=== PATIENT | male | born 1935 | race Caucasian/White ===

== ENCOUNTER 2016-09-01 05:18 | Day surgery (SDC) | payer MEDICARE, BC ==
[2016-09-01] MEDS ORDERED: Lactated Ringers 1,000 ML IV SCH (06:00)
[2016-09-01] MEDS ORDERED: Bupivacaine 0.5% 50 ML MDV ONE (06:36)
[2016-09-01] MEDS ORDERED: Rocuronium 50 MG/5 ML Vial ONE (07:22)
[2016-09-01] MEDS ORDERED: Dexamethasone 4 MG/ML SDV ONE (07:22)
[2016-09-01] MEDS ORDERED: Ondansetron 4 MG/2 ML SDV ONE (07:22)
[2016-09-01] MEDS ORDERED: Succinylcholine/Normal Saline 200 MG/10 ML Syringe ONE (07:22)
[2016-09-01] MEDS ORDERED: fentaNYL 250 MCG/5 ML SDV ONE (07:22)
[2016-09-01] MEDS ORDERED: Propofol 200 MG/20 ML SDV ONE (07:22)
[2016-09-01] MEDS ORDERED: Neostigmine Methylsulfate 1 MG/ML 5 ML Syringe ONE (07:22)
[2016-09-01] MEDS ORDERED: ceFAZolin 2 GM in Sodium Chloride 0.9% 50 ML IV ONE (07:30)
[2016-09-01] MEDS ORDERED: Povidone-Iodine 10% Soln 118.25 ML Bottle ONE (08:07)
[2016-09-01] MEDS ORDERED: fentaNYL 100 MCG/2 ML SDV ONE (08:16)
[2016-09-01] MEDS ORDERED: Ketorolac 60 MG/2 ML SDV IM ONE (08:45)
[2016-09-01 09:51] VITALS: BP 127/58
--- NOTE | 2016-09-01 13:04 | OR ---
DATE OF PROCEDURE: 09/01/2016 PREOPERATIVE DIAGNOSIS: Foreign body, right knee. POSTOPERATIVE DIAGNOSIS: Foreign body, right knee. PROCEDURE: Removal of foreign body from posterior knee, going through skin and subcutaneous tissue, deep fascia, and muscle. SKIN WASHER: Luz Maria Plata NP. ANESTHESIA: General endotracheal intubation. FLUID: Lactated Ringer solution. ESTIMATED BLOOD LOSS: Zero. COMPLICATIONS: None. SPECIMEN: None. DISCHARGE DISPOSITION: Stable to PACU. INDICATION FOR PROCEDURE: The patient was seen preoperatively in the clinic. 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 He was continuing to have pain ever since the surgery. On preoperative imaging, I noticed a foreign body in the back of the knee. CT was obtained confirming the above-mentioned diagnosis. It was thought to be cemented left over from the total knee arthroplasty. Risks and benefits of the procedure were explained to the patient and informed consent was obtained. DETAILS OF PROCEDURE: The patient was seen preoperatively by myself, and the Anesthesia staff in the preop holding area, where the operative site was marked. He was brought to the operative suite by the Anesthesia staff, where general anesthesia was administered. He was flipped onto a Ricky table. All extremities were found to be well padded. The posterior aspect of the right knee was then prepped and draped in a sterile manner. Time-out was called to identify the correct patient, the correct procedure, the correct site, and antibiotics had begun within the appropriate period of time. AP and lateral fluoroscopy from a sterile fluoroscopy unit were then used to localize the foreign body. It could not be ascertained, other than the localized generally, on the area on the AP. But on the lateral image, I was able to ascertain the location of the most superficial cement. I then made an incision over this area, approximately 4 cm long. Bleeding was controlled with Bovie electrocautery. I then carefully incised through the deep fascia over the muscle belly and then used Weitlaner retractors for retraction. I then carefully used a Metzenbaum to dissect down to the area of the foreign bodies, which were palpated. I did encounter some knee synovial fluid at that time. We then removed 3 balls of cement. I was expecting [address] We then copiously irrigated with saline. I then closed the deep fascia in an interlocking fashion with 2-0 Vicryl followed by subcutaneous closure with 2-0 Vicryl and 2-0 Monocryl, Dermabond, a Betadine-soaked Adaptic, and a sterile dressing. The patient was then flipped into supine position on his hospital bed and taken to PACU in stable condition. Jesus Alberto Stout DO /[id number]
== END 2016-09-01 10:22 | disposition home or self-care (01) ==
LOC: JP.SDS 05:18
PROVIDERS: ATTEND Orthopaedic Surgery
PROC: 0KCS0ZZ Extirpation of Matter from Right Lower Leg Muscle, Open Approach (ICD-10-PCS; principal; 2016-09-01)
DX: T81.590A Other complications of foreign body accidentally left in body following surgical operation, initial encounter (principal); T83.728A Exposure of other implanted mesh into organ or tissue, initial encounter; Z96.651 Presence of right artificial knee joint; Z79.82 Long term (current) use of aspirin; Z79.899 Other long term (current) drug therapy; E11.9 Type 2 diabetes mellitus without complications; Z79.84 Long term (current) use of oral hypoglycemic drugs; J45.909 Unspecified asthma, uncomplicated
CPT/HCPCS: 27310; 76000; J0690; J1100; J1885; J2405; J2704; J3010; J7050; J7120; 27372; 88304; 88311

== ENCOUNTER 2017-06-19 10:46 | Emergency (ER) | payer MEDICARE, BC ==
[2017-06-19] MEDS ORDERED: Sodium Chloride 0.9% 10 ML Syringe FLUSH PRN (11:09)
[2017-06-19] MEDS ORDERED: Ondansetron 4 MG/2 ML SDV IVPUSH ONE (11:10)
[2017-06-19] MEDS ORDERED: Ketorolac 30 MG/ML SDV IVPUSH ONE (11:10)
[2017-06-19] MEDS ORDERED: Lactated Ringers 1,000 ML IV SCH (11:15)
--- NOTE | 2017-06-19 11:15 | EDM.PDOC ---
ED HPI GENERAL MEDICAL PROBLEM - General Chief Complaint: Syncope Stated Complaint: ILLNESS Time Seen by Provider: 06/19/17 11:08 Source of Information: Reports: Patient, Family, RN Notes Reviewed History Limitations: Reports: No Limitations - History of Present Illness INITIAL COMMENTS - FREE TEXT/NARRATIVE: 82-year-old gentleman presents to the emergency department today for a syncopal event, this happened while he was at [employer], he was recently started on metoprolol took his second dose today. He also complains of migraine headache that has been going on for about 4 days. He believes he injured his right ankle with his syncopal event and now has pain with any rotation. No nausea vomiting no chest pain or shortness of breath however he does have photophobia - Related Data Allergies Allergy/AdvReac Type Severity Reaction Status Date / Time codeine AdvReac Nausea and Verified 08/28/16 14:46 Vomiting morphine AdvReac Headache Verified 08/28/16 14:46 foam tape AdvReac Blisters Uncoded 02/18/17 11:06 Home Meds: Home Meds Aspirin [Low Dose Aspirin EC] 81 mg PO DAILY 11/14/13 [History] Calcium Carb/Vit D3/Minerals [Hm Calcium 600 mg-Vit D Tab] 1 tab PO BID [History] Cholecalciferol (Vitamin D3) [D-2000] 1,000 unit PO DAILY 11/14/13 [History] ClonazePAM [KlonoPIN] 0.5 mg PO BEDTIME 11/14/13 [History] Cyanocobalamin (Vitamin B-12) [Vitamin B-12] 1,000 mcg PO DAILY 11/14/13 [ History] Diphenoxylate HCl/Atropine [Diphenoxylate-Atrop 2.5-0.025] 1 each PO ASDIRECTED PRN 11/14/13 [History] Multivitamin [Multi Vitamin Daily] 1 tab PO DAILY 11/14/13 [History] Gay-3 Fatty Acids [Gay-3] 1,000 mg PO BID 11/14/13 [History] Pantoprazole Sodium 80 mg PO DAILY 11/14/13 [History] SUMAtriptan Succinate [Imitrex] 50 mg PO ASDIRECTED PRN 11/14/13 [History] atorvaSTATin [Lipitor] 40 mg PO BEDTIME 11/14/13 [History] Albuterol Sulfate [Proair Hfa] 2 puff INH Q6H PRN 01/14/16 [History] Finasteride [Proscar] 5 mg PO DAILY 01/14/16 [History] Furosemide [Lasix] 60 mg PO DAILY 01/14/16 [History] Nitroglycerin 0.4 mg SL ASDIRECTED PRN 01/14/16 [History] Pregabalin [Lyrica] 50 mg PO TID 01/14/16 [History] metFORMIN [Glucophage] 500 mg PO DAILY 01/14/16 [History] rOPINIRole [Requip] 0.5 mg PO QPM 01/14/16 [History] Ferrous Gluconate 324 mg PO DAILY 08/28/16 [History] Lidocaine 2% [Xylocaine 2% Jelly] 1 applic TOP ASDIRECTED 08/28/16 [History] Apixaban [Eliquis] 1 tab PO DAILY 06/19/17 [History] Diltiazem [Dilacor XR] 1 tab PO DAILY 06/19/17 [History] Isosorbide Mononitrate [Isosorbide Mononitrate ER] 1 tab PO DAILY 06/19/17 [ History] Metoprolol Tartrate 1 tab PO BID 06/19/17 [History] Past Medical History Cardiovascular History: Reports: High Cholesterol, SOB on Exertion Respiratory History: Reports: Asthma, COPD Gastrointestinal History: Reports: GERD, Hemorrhoids Genitourinary History: Reports: Prostate Disorder Musculoskeletal History: Reports: Arthritis, Back Pain, Chronic, Fracture, Neck Pain, Chronic, Osteoarthritis, Other (See Below) Other Musculoskeletal History: L hip pain Neurological History: Reports: Migraines, Neuropathy, Diabetic Endocrine/Metabolic History: Reports: Diabetes, Type II, Obesity/BMI 30+, Vitamin D Deficiency Hematologic History: Reports: Blood Transfusion(s), Iron Deficiency Dermatologic History: Reports: None - Infectious Disease History Infectious Disease History: Reports: Chicken Pox, Herpes, Measles - Past Surgical History HEENT Surgical History: Reports: Oral Surgery, Tonsillectomy Cardiovascular Surgical History: Reports: None Respiratory Surgical History: Reports: None GI Surgical History: Reports: Appendectomy, Cholecystectomy, Colonoscopy, EGD, Hernia, Abdominal, Hernia, Inguinal, Hernia Repair/Other Male Surgical History: Reports: Prostate Biopsy, Prostatectomy, Vasectomy Endocrine Surgical History: Reports: None Neurological Surgical History: Reports: C-Spine, Spinal Fusion, Thoracic Spine, Other (See Below) Other Neurological Surgeries/Procedures: T11 to S1 Musculoskeletal Surgical History: Reports: Arthroscopic Procedure, Carpal Tunnel , Knee Replacement, Shoulder Surgery Dermatological Surgical History: Reports: Skin Biopsy Social & Family History - Family History Cardiac: Reports: Heart Failure - Tobacco Use Smoking Status *Q: Never Smoker Years of Tobacco use: 40 Used Tobacco, but Quit: Yes Month/Year Tobacco Last Used: 1993 Second Hand Smoke Exposure: No - Caffeine Use Caffeine Use: Reports: Coffee Other Caffeine Use: 1x/wk - Recreational Drug Use Recreational Drug Use: No ED ROS GENERAL - Review of Systems Review Of Systems: See Below Constitutional: Reports: No Symptoms HEENT: Reports: No Symptoms Respiratory: Reports: No Symptoms Cardiovascular: Reports: Lightheadedness, Syncope GI/Abdominal: Reports: No Symptoms : Reports: No Symptoms Musculoskeletal: Reports: No Symptoms Skin: Reports: No Symptoms Neurological: Reports: Syncope ED EXAM, GENERAL - Physical Exam Exam: See Below Exam Limited By: No Limitations General Appearance: Alert, No Apparent Distress Neck: Normal Inspection, Supple, Non-Tender, Full Range of Motion Respiratory/Chest: No Respiratory Distress, Lungs Clear, Normal Breath Sounds, No Accessory Muscle Use Cardiovascular: No Murmur, Bradycardia GI/Abdominal: Soft, Non-Tender Extremities: Pedal Edema, Other (Examination of the ankle right I do not appreciate any erythema edema is +1 in the lower extremity no obvious deformity he is tender to palpation on lateral aspect and tender to rotation) Course - Vital Signs Last Recorded V/S: Last Vital Signs Temp 98.6 F 06/19/17 12:08 Pulse 36 L 06/19/17 12:43 Resp 12 06/19/17 12:43 BP 87/47 L 06/19/17 12:43 Pulse Ox 93 L 06/19/17 12:43 - Orders/Labs/Meds Orders: Active Orders 24 hr Category Date Time Status Cardiac Monitoring [RC] .As Directed Care 06/19/17 11:09 Active EKG Documentation Completion [RC] ASDIRECTED Care 06/19/17 11:10 Active Peripheral IV Care [RC] . DIRECTED Care 06/19/17 11:10 Active Ankle Min 3V Rt [CR] Stat Exams 06/19/17 11:11 Taken Chest 1V Frontal [CR] Stat Exams 06/19/17 11:10 Taken Lactated Ringers [Ringers, Lactated] 1,000 ml Med 06/19/17 11:15 Active IV .BOLUS Sodium Chloride 0.9% [Saline Flush] Med 06/19/17 11:09 Active 10 ml FLUSH ASDIRECTED PRN Peripheral IV Insertion Adult [OM.PC] Stat Oth 06/19/17 11:09 Ordered EKG 12 Lead [EK] Stat Ther 06/19/17 11:10 Ordered Medication Orders Lactated Ringer's (Ringers, Lactated) 1,000 mls @ 500 mls/hr IV .BOLUS [place] Last Admin: 06/19/17 11:58 Dose: 500 mls/hr Sodium Chloride (Saline Flush) 10 ml FLUSH ASDIRECTED PRN PRN Reason: Keep Vein Open Last Admin: 06/19/17 11:59 Dose: 10 ml Labs: Laboratory Tests 06/19/17 06/19/17 Range/Units 11:15 12:10 WBC 8.8 (4.5-11.0) K/uL RBC 3.64 L (4.30-5.90) M/uL Hgb 11.6 L D (12.0-15.0) g/dL Hct 35.4 L (40.0-54.0) % MCV 97 (80-98) fL MCH 32 H (27-31) pg MCHC 33 (32-36) % Plt Count 196 (150-400) K/uL Neut % (Auto) 45 (36-66) % Lymph % (Auto) 38 (24-44) % [place] % (Auto) 12 H (2-6) % Eos % (Auto) 4 (2-4) % Baso % (Auto) 1 (0-1) % Sodium 141 (140-148) mmol/L Potassium 3.4 L (3.6-5.2) mmol/L Chloride 102 (100-108) mmol/L Carbon Dioxide 30 (21-32) mmol/L Anion Gap 12.4 (5.0-14.0) mmol/L BUN 33 H (7-18) mg/dL Creatinine 1.7 H (0.8-1.3) mg/dL Est Cr Clr Drug Dosing 32.97 mL/min Estimated GFR (MDRD) 39 L (>60) Glucose 155 H (74-106) mg/dL Calcium 8.9 (8.5-10.1) mg/dL Total Bilirubin 0.4 D (0.2-1.0) mg/dL AST 36 (15-37) U/L ALT 38 (12-78) U/L Alkaline Phosphatase 72 (46-116) U/L CK-MB (CK-2) 2.9 (0-3.6) mg/mL Troponin I < 0.017 (0.000-0.056) ng/mL Total Protein 6.4 (6.4-8.2) g/dL Albumin 3.0 L (3.4-5.0) g/dL Globulin 3.4 (2.3-3.5) g/dL Albumin/Globulin Ratio 0.9 L (1.2-2.2) Meds: Medications Generic Name Dose Route Start Last Admin Trade Name Freq PRN Reason Stop Dose Admin Lactated Ringer's 1,000 mls @ 500 mls/hr 06/19/17 11:15 06/19/17 11:58 Ringers, Lactated IV 500 mls/hr .BOLUS [place] Administration Sodium Chloride 10 ml 06/19/17 11:09 06/19/17 11:59 Saline Flush FLUSH 10 ml ASDIRECTED PRN Administration Keep Vein Open Discontinued Medications Generic Name Dose Route Start Last Admin Trade Name Freq PRN Reason Stop Dose Admin Diphenhydramine HCl 25 mg 06/19/17 12:44 Benadryl IVPUSH 06/19/17 12:45 ONETIME ONE Haloperidol Lactate 2.5 mg 06/19/17 12:44 Haldol IVPUSH 06/19/17 12:45 ONETIME ONE Ketorolac Tromethamine 30 mg 06/19/17 11:10 06/19/17 12:00 Toradol IVPUSH 06/19/17 11:11 30 mg ONETIME ONE Administration Ondansetron HCl 4 mg 06/19/17 11:10 06/19/17 11:59 Zofran IVPUSH 06/19/17 11:11 4 mg ONETIME ONE Administration Departure - Departure Time of Disposition: 12:51 Disposition: Admitted As Inpatient 67 Condition: Fair Clinical Impression: Bradycardia Referrals: Adam Alfonso MD [Primary Care Provider] - Forms: ED Department Discharge - My Orders Last 24 Hours: My Active Orders 06/19/17 11:09 Cardiac Monitoring [RC] .As Directed Sodium Chloride 0.9% [Saline Flush] 10 ml FLUSH ASDIRECTED PRN Peripheral IV Insertion Adult [OM.PC] Stat 06/19/17 11:10 EKG Documentation Completion [RC] ASDIRECTED Peripheral IV Care [RC] . DIRECTED Chest 1V Frontal [CR] Stat EKG 12 Lead [EK] Stat 06/19/17 11:11 Ankle Min 3V Rt [CR] Stat 06/19/17 11:15 Lactated Ringers [Ringers, Lactated] 1,000 ml IV .BOLUS - Assessment/Plan Last 24 Hours: My Active Orders 06/19/17 11:09 Cardiac Monitoring [RC] .As Directed Sodium Chloride 0.9% [Saline Flush] 10 ml FLUSH ASDIRECTED PRN Peripheral IV Insertion Adult [OM.PC] Stat 06/19/17 11:10 EKG Documentation Completion [RC] ASDIRECTED Peripheral IV Care [RC] . DIRECTED Chest 1V Frontal [CR] Stat EKG 12 Lead [EK] Stat 06/19/17 11:11 Ankle Min 3V Rt [CR] Stat 06/19/17 11:15 Lactated Ringers [Ringers, Lactated] 1,000 ml IV .BOLUS Plan: Assessment Acuity = acute Site and laterality = syncopal event Etiology = secondary to bradycardia and hypotension Manifestations = lightheadedness Location of injury = Home Lab values = hemoglobin low 11.6 consistent with normochromic anemia potassium low at 3.4 consistent hypokalemia anemia, creatinine elevated 1.7 consistent with chronic renal failure stage G IIIB troponin was negative albumin low at 2.0 consistent hypoalbuminemia chest x-ray I did not appreciate any acute process Read radiology EKG demonstrates a sinus bradycardia with a right bundle branch block that is not new was on prior EKG Plan Called and discussed the case with hospitalist teletypesetter monitor he agreed to come and evaluate the patient emergency department for admission This note was dictated using [employer] voice recognition software please call with any questions on syntax or hina.
[2017-06-19] MEDS ORDERED: diphenhydrAMINE 50 MG/ML SDV IVPUSH ONE (12:44)
[2017-06-19] MEDS ORDERED: Haloperidol Lactate 5 MG/ML SDV IVPUSH ONE (12:44)
[2017-06-19] MEDS ORDERED: Lactated Ringers 1,000 ML IV ONE (12:51)
[2017-06-19 13:00] VITALS: BP 87/47
--- NOTE | 2017-06-19 13:59 | PCM.HP ---
H&P History of Present Illness - General Date of Service: 06/19/17 Admit Problem/Dx: Admission Diagnosis/Problem Admission Diagnosis/Problem Bradycardia Source of Information: Patient, Family, Provider, RN Notes Reviewed History Limitations: Reports: No Limitations - History of Present Illness Initial Comments - Free Text/Narative: This patient is an 82-year-old gentleman who is admitted through the emergency department observation status for further monitoring and follow-up of symptomatic bradycardia. He was at druze this morning and feeling somewhat weak and lightheaded. He was started on beta mirlande therapy, took the first dose last night, and the second dose this morning. He experienced a syncopal episode and awoke on the floor. Was brought in by EMS to the emergency department. While in the emergency room is been noted to have persistent bradycardia with rates into the 30s and low 40s. Pressures also been trending low, he has received IV fluids. He denies any symptoms of chest pain or pressure or significant shortness of breath. - Related Data Allergies/Adverse Reactions: Allergies Allergy/AdvReac Type Severity Reaction Status Date / Time codeine AdvReac Nausea and Verified 08/28/16 14:46 Vomiting morphine AdvReac Headache Verified 08/28/16 14:46 foam tape AdvReac Blisters Uncoded 02/18/17 11:06 Home Medications: Home Meds Aspirin [Low Dose Aspirin EC] 81 mg PO DAILY 11/14/13 [History] Calcium Carb/Vit D3/Minerals [Hm Calcium 600 mg-Vit D Tab] 1 tab PO BID [History] Cholecalciferol (Vitamin D3) [D-2000] 1,000 unit PO DAILY 11/14/13 [History] ClonazePAM [KlonoPIN] 0.5 mg PO BEDTIME 11/14/13 [History] Cyanocobalamin (Vitamin B-12) [Vitamin B-12] 1,000 mcg PO DAILY 11/14/13 [ History] Diphenoxylate HCl/Atropine [Diphenoxylate-Atrop 2.5-0.025] 1 each PO ASDIRECTED PRN 11/14/13 [History] Multivitamin [Multi Vitamin Daily] 1 tab PO DAILY 11/14/13 [History] [place]-3 Fatty Acids [[place]-3] 1,000 mg PO BID 11/14/13 [History] Pantoprazole Sodium 80 mg PO DAILY 11/14/13 [History] SUMAtriptan Succinate [Imitrex] 50 mg PO ASDIRECTED PRN 11/14/13 [History] atorvaSTATin [Lipitor] 40 mg PO BEDTIME 11/14/13 [History] Albuterol Sulfate [Proair Hfa] 2 puff INH Q6H PRN 01/14/16 [History] Finasteride [Proscar] 5 mg PO DAILY 01/14/16 [History] Furosemide [Lasix] 60 mg PO DAILY 01/14/16 [History] Nitroglycerin 0.4 mg SL ASDIRECTED PRN 01/14/16 [History] Pregabalin [Lyrica] 50 mg PO TID 01/14/16 [History] metFORMIN [Glucophage] 500 mg PO DAILY 01/14/16 [History] rOPINIRole [Requip] 0.5 mg PO QPM 01/14/16 [History] Ferrous Gluconate 324 mg PO DAILY 08/28/16 [History] Lidocaine 2% [Xylocaine 2% Jelly] 1 applic TOP ASDIRECTED 08/28/16 [History] Apixaban [Eliquis] 1 tab PO DAILY 06/19/17 [History] Diltiazem [Dilacor XR] 1 tab PO DAILY 06/19/17 [History] Isosorbide Mononitrate [Isosorbide Mononitrate ER] 1 tab PO DAILY 06/19/17 [ History] Metoprolol Tartrate 1 tab PO BID 06/19/17 [History] Past Medical History Cardiovascular History: Reports: High Cholesterol, SOB on Exertion Respiratory History: Reports: Asthma, COPD Gastrointestinal History: Reports: GERD, Hemorrhoids Genitourinary History: Reports: Prostate Disorder Musculoskeletal History: Reports: Arthritis, Back Pain, Chronic, Fracture, Neck Pain, Chronic, Osteoarthritis, Other (See Below) Other Musculoskeletal History: L hip pain Neurological History: Reports: Migraines, Neuropathy, Diabetic Endocrine/Metabolic History: Reports: Diabetes, Type II, Obesity/BMI 30+, Vitamin D Deficiency Hematologic History: Reports: Blood Transfusion(s), Iron Deficiency Dermatologic History: Reports: None - Infectious Disease History Infectious Disease History: Reports: Chicken Pox, Herpes, Measles - Past Surgical History HEENT Surgical History: Reports: Oral Surgery, Tonsillectomy Cardiovascular Surgical History: Reports: None Respiratory Surgical History: Reports: None GI Surgical History: Reports: Appendectomy, Cholecystectomy, Colonoscopy, EGD, Hernia, Abdominal, Hernia, Inguinal, Hernia Repair/Other Male Surgical History: Reports: Prostate Biopsy, Prostatectomy, Vasectomy Endocrine Surgical History: Reports: None Neurological Surgical History: Reports: C-Spine, Spinal Fusion, Thoracic Spine, Other (See Below) Other Neurological Surgeries/Procedures: T11 to S1 Musculoskeletal Surgical History: Reports: Arthroscopic Procedure, Carpal Tunnel , Knee Replacement, Shoulder Surgery Dermatological Surgical History: Reports: Skin Biopsy Social & Family History - Family History Cardiac: Reports: Heart Failure - Tobacco Use Smoking Status *Q: Never Smoker Years of Tobacco use: 40 Used Tobacco, but Quit: Yes Month/Year Tobacco Last Used: 1993 Second Hand Smoke Exposure: No - Caffeine Use Caffeine Use: Reports: Coffee Other Caffeine Use: 1x/wk - Recreational Drug Use Recreational Drug Use: No H&P Review of Systems - Review of Systems: Review Of Systems: See Below General: Denies: Fever, Chills, Weakness, Diaphoresis HEENT: Reports: No Symptoms Pulmonary: Reports: No Symptoms Cardiovascular: Reports: Lightheadedness, Syncope. Denies: Chest Pain, Palpitations, Dyspnea on Exertion, Orthopnea, PND, Edema Gastrointestinal: Reports: No Symptoms Genitourinary: Reports: No Symptoms Musculoskeletal: Reports: No Symptoms Skin: Reports: No Symptoms Psychiatric: Reports: No Symptoms Neurological: Reports: Headache, Paresthesia. Denies: Confusion, Dizziness, Numbness, Pre-Existing Deficit Hematologic/Lymphatic: Reports: No Symptoms Immunologic: Reports: No Symptoms Exam - Exam Exam: See Below - Vital Signs Vital Signs: Last Vital Signs Temp 98.6 F 06/19/17 12:08 Pulse 36 L 06/19/17 12:43 Resp 12 06/19/17 12:43 BP 87/47 L 06/19/17 12:43 Pulse Ox 93 L 06/19/17 12:43 Weight: 220 lb - Exam Quality Assessment: DVT Prophylaxis General: Alert, Oriented, Cooperative, Moderate Distress HEENT: Conjunctiva Clear, Normal Nasal Septum, Posterior Pharynx Clear, Pupils Equal. No: Hearing Intact, Mucosa Moist & [place]: Supple, Trachea Midline, +2 Carotid Pulse wo Bruit Lungs: Clear to Auscultation, Normal Respiratory Effort Cardiovascular: Regular Rhythm, Normal S1, Normal S2, Bradycardia. No: Systolic Murmur, Diastolic Murmur GI/Abdominal Exam: Soft, Non-Tender, No Organomegaly, No Distention Extremities: Non-Tender, No Pedal Edema Skin: Warm, Dry, Intact Neurological: Cranial Nerves Intact, Strength Equal Bilateral, Normal Speech, Normal Tone. No: Sensation Intact (Neuropathy with decreased sensation both lower extremities) Neuro Extensive - Mental Status: Alert, Oriented x3, Normal Mood/Affect, Normal Cognition, Memory Intact - Patient Data Lab Results Last 24 hrs: Laboratory Results - last 24 hr 06/19/17 06/19/17 Range/Units 11:15 12:10 WBC 8.8 (4.5-11.0) K/uL RBC 3.64 L (4.30-5.90) M/uL Hgb 11.6 L D (12.0-15.0) g/dL Hct 35.4 L (40.0-54.0) % MCV 97 (80-98) fL MCH 32 H (27-31) pg MCHC 33 (32-36) % Plt Count 196 (150-400) K/uL Neut % (Auto) 45 (36-66) % Lymph % (Auto) 38 (24-44) % [place] % (Auto) 12 H (2-6) % Eos % (Auto) 4 (2-4) % Baso % (Auto) 1 (0-1) % Sodium 141 (140-148) mmol/L Potassium 3.4 L (3.6-5.2) mmol/L Chloride 102 (100-108) mmol/L Carbon Dioxide 30 (21-32) mmol/L Anion Gap 12.4 (5.0-14.0) mmol/L BUN 33 H (7-18) mg/dL Creatinine 1.7 H (0.8-1.3) mg/dL Est Cr Clr Drug Dosing 32.97 mL/min Estimated GFR (MDRD) 39 L (>60) Glucose 155 H (74-106) mg/dL Calcium 8.9 (8.5-10.1) mg/dL Total Bilirubin 0.4 D (0.2-1.0) mg/dL AST 36 (15-37) U/L ALT 38 (12-78) U/L Alkaline Phosphatase 72 (46-116) U/L CK-MB (CK-2) 2.9 (0-3.6) mg/mL Troponin I < 0.017 (0.000-0.056) ng/mL Total Protein 6.4 (6.4-8.2) g/dL Albumin 3.0 L (3.4-5.0) g/dL Globulin 3.4 (2.3-3.5) g/dL Albumin/Globulin Ratio 0.9 L (1.2-2.2) Result Diagrams: 06/19/17 11:15 06/19/17 12:10 *Q Meaningful Use (ADM) - VTE *Q VTE Pharmacological Contraindications *Q: High INR Value - VTE Risk Assess *Q Each Risk Factor Represents 1 Point: None, Obesity ( BMI > 25 kg/m2) Total Score 1 Point Risk Factors: 1 Each Risk Factor Represents 2 Points: None Total Score 2 Point Risk Factors: 0 Each Risk Factor Represents 3 Points: Age 75 Years or Greater Total Score 3 Point Risk Factors: 3 Each Risk Factor Represents 5 Points: None Total Score 5 Point Risk Factors: 0 Venous Thromboembolism Risk Factor Score *Q: 4 Problem List Initiated/Reviewed/Updated: Yes Orders Last 24hrs: Active Orders 24 hr Category Date Time Status Patient Status Manage Transfer [TRANSFER] Routine ADT 06/19/17 13:09 Active Cardiac Monitoring [RC] .As Directed Care 06/19/17 11:09 Active EKG Documentation Completion [RC] ASDIRECTED Care 06/19/17 11:10 Active Peripheral IV Care [RC] . DIRECTED Care 06/19/17 11:10 Active Ankle Min 3V Rt [CR] Stat Exams 06/19/17 11:11 Taken Chest 1V Frontal [CR] Stat Exams 06/19/17 11:10 Taken Lactated Ringers [Ringers, Lactated] 1,000 ml Med 06/19/17 11:15 Active IV .BOLUS Lactated Ringers [Ringers, Lactated] 1,000 ml Med 06/19/17 12:51 Active IV BOLUS Sodium Chloride 0.9% [Saline Flush] Med 06/19/17 11:09 Active 10 ml FLUSH ASDIRECTED PRN Peripheral IV Insertion Adult [OM.PC] Stat Oth 06/19/17 11:09 Ordered Resuscitation Status Routine Resus Stat 06/19/17 13:12 Ordered EKG 12 Lead [EK] Stat Ther 06/19/17 11:10 Ordered Medication Orders Lactated Ringer's (Ringers, Lactated) 1,000 mls @ 500 mls/hr IV .BOLUS [place] Last Admin: 06/19/17 11:58 Dose: 500 mls/hr Lactated Ringer's (Ringers, Lactated) 1,000 mls @ 250 mls/hr IV BOLUS ONE Stop: 06/19/17 16:50 Last Admin: 06/19/17 13:46 Dose: 250 mls/hr Sodium Chloride (Saline Flush) 10 ml FLUSH ASDIRECTED PRN PRN Reason: Keep Vein Open Last Admin: 06/19/17 11:59 Dose: 10 ml Assessment/Plan Comment:: ASSESSMENT AND PLAN SYMPTOMATIC BRADYCARDIA-profound bradycardia likely secondary to recent addition of beta mirlande therapy to current medical regimen, he also takes a calcium channel mirlande diltiazem. Episode of syncope this morning occurred after he taken the second dose of beta mirlande, on evaluation in the emergency department EKG shows very slow sinus bradycardia. -Hold metoprolol and diltiazem -cardiac monitoring in ICU -observation admission RIGHT ANKLE PAIN-injured his ankle when he fell, x-rays obtained in the emergency department showed no evidence of fracture -Andrew wrap ankle TYPE 2 DIABETES MELLITUS -continue metformin line- -4 times a day glucometers -Low-dose sliding scale NovoLog MAINTENANCE ISSUES -DVT prophylaxis; current therapy with Fer was should provide adequate DVT prophylaxis -GI prophylaxis; not indicated -[place] catheter; not indicated -Nutrition;Consistent carb diet -Nicotine dependence; not required CODE STATUS- FULL CODE ADMISSION STATUS-this patient will be admitted to observation status, expect no more than a one night hospital stay for evaluation and management of problems as outlined above. DISPOSITION-anticipate discharge to home after the hospital stay. PRIMARY CARE PROVIDER-Dr. Alfonso
--- NOTE | 2017-06-21 08:54 | CR ---
Ankle Min 3V Rt INDICATION: fall, pain FINDINGS: No acute fracture. Enthesophyte distal fibula. Well-corticated ossicles inferior to the med ial malleolus. Degenerative changes in the midfoot.
--- NOTE | 2017-06-21 09:23 | CR ---
Chest 1V Frontal INDICATION: Chest Pain FINDINGS: Heart size within normal limits allowing for portable AP technique. Postoperative changes c ervical spine. Mild diffuse interstitial changes are nonspecific and could be acute or chronic. Mild bibasilar infiltrate or atelectasis. Exam otherwise negative.
== END 2017-06-19 15:08 | disposition left against medical advice (07) ==
LOC: JP.ED 10:46 → JP.ICU 13:09 → UNDOADMOB 13:09
DX: R00.1 Bradycardia, unspecified (principal); E78.00 Pure hypercholesterolemia, unspecified; J44.9 Chronic obstructive pulmonary disease, unspecified; E11.9 Type 2 diabetes mellitus without complications; E66.9 Obesity, unspecified; Z88.5 Allergy status to narcotic agent; Z88.8 Allergy status to other drugs, medicaments and biological substances; Z79.82 Long term (current) use of aspirin; Z79.899 Other long term (current) drug therapy; Z79.84 Long term (current) use of oral hypoglycemic drugs; Z90.49 Acquired absence of other specified parts of digestive tract; Z68.33 Body mass index [BMI] 33.0-33.9, adult
CPT/HCPCS: 36415; 71045; 73610; 80053; 82553; 84484; 85025; 93005; 96361; 96374; 96375; 99285; J1200; J1630; J1885; J2405; J7050; J7120

== ENCOUNTER 2017-06-25 20:38 | Inpatient (IN) | payer MEDICARE, BC ==
[2017-06-25] MEDS ORDERED: Pregabalin 50 MG Cap PO ONE (21:42)
--- NOTE | 2017-06-25 21:42 | EDM.PDOC ---
ED HPI GENERAL MEDICAL PROBLEM - General Chief Complaint: Lower Extremity Injury/Pain Stated Complaint: LEG IS RED SWOLLEN Time Seen by Provider: 06/25/17 21:15 Source of Information: Reports: Patient, Family History Limitations: Reports: No Limitations - History of Present Illness INITIAL COMMENTS - FREE TEXT/NARRATIVE: 82-year-old male who is concerned about swelling, discomfort, and redness of his right lower extremity for the past 1-2 days. He recently had a significant right ankle sprain that cause swelling and bruising but that was improving but over the past 2 days he's had swelling all the way to his groin on the right side, the skin is getting tense and erythematous. He's had no fever. He is on Eloquis for anticoagulation. Denies any shortness of breath. Onset: Gradual (Over the past 1-2 days) Location: Reports: Lower Extremity, Right Severity: Moderate Associated Symptoms: Denies: Confusion, Cough, Fever/Chills, Nausea/Vomiting, Shortness of Breath Right Leg Pain Score (Numeric/FACES): 8 - Related Data Allergies Allergy/AdvReac Type Severity Reaction Status Date / Time codeine AdvReac Nausea and Verified 06/25/17 20:43 Vomiting morphine AdvReac Headache Verified 06/25/17 20:43 foam tape AdvReac Blisters Uncoded 06/25/17 20:43 Home Meds: Home Meds Aspirin [Low Dose Aspirin EC] 81 mg PO DAILY 11/14/13 [History] Calcium Carb/Vit D3/Minerals [Hm Calcium 600 mg-Vit D Tab] 1 tab PO BID [History] Cholecalciferol (Vitamin D3) [D-2000] 2,000 unit PO DAILY 11/14/13 [History] ClonazePAM [KlonoPIN] 0.5 mg PO BEDTIME 11/14/13 [History] Cyanocobalamin (Vitamin B-12) [Vitamin B-12] 1,000 mcg PO DAILY 11/14/13 [ History] Diphenoxylate HCl/Atropine [Diphenoxylate-Atrop 2.5-0.025] 1 each PO ASDIRECTED PRN 11/14/13 [History] Multivitamin [Multi Vitamin Daily] 1 tab PO DAILY 11/14/13 [History] [place]-3 Fatty Acids [[place]-3] 1,000 mg PO BID 11/14/13 [History] Pantoprazole Sodium 80 mg PO DAILY 11/14/13 [History] SUMAtriptan Succinate [Imitrex] 50 mg PO ASDIRECTED PRN 11/14/13 [History] atorvaSTATin [Lipitor] 40 mg PO BEDTIME 11/14/13 [History] Albuterol Sulfate [Proair Hfa] 2 puff INH Q6H PRN 01/14/16 [History] Finasteride [Proscar] 5 mg PO DAILY 01/14/16 [History] Furosemide [Lasix] 60 mg PO DAILY 01/14/16 [History] Nitroglycerin 0.4 mg SL ASDIRECTED PRN 01/14/16 [History] Pregabalin [Lyrica] 50 mg PO TID 01/14/16 [History] metFORMIN [Glucophage] 500 mg PO DAILY 01/14/16 [History] rOPINIRole [Requip] 0.5 mg PO QPM 01/14/16 [History] Ferrous Gluconate 324 mg PO BID 08/28/16 [History] Lidocaine 2% [Xylocaine 2% Jelly] 1 applic TOP ASDIRECTED 08/28/16 [History] Apixaban [Eliquis] 1 tab PO DAILY 06/19/17 [History] Diltiazem [Dilacor XR] 1 tab PO BID 06/19/17 [History] Isosorbide Mononitrate [Isosorbide Mononitrate ER] 1 tab PO DAILY 06/19/17 [ History] Past Medical History HEENT History: Reports: Impaired Vision Cardiovascular History: Reports: High Cholesterol, SOB on Exertion, Other (See Below) Other Cardiovascular History: recent episode of a fib Apr 2017. Respiratory History: Reports: Asthma, COPD Gastrointestinal History: Reports: GERD, Hemorrhoids Genitourinary History: Reports: Prostate Disorder, Other (See Below) Other Genitourinary History: self cath Musculoskeletal History: Reports: Arthritis, Back Pain, Chronic, Fracture, Neck Pain, Chronic, Osteoarthritis, Other (See Below) Other Musculoskeletal History: L hip pain Neurological History: Reports: Migraines, Neuropathy, Diabetic Endocrine/Metabolic History: Reports: Diabetes, Type II, Obesity/BMI 30+, Vitamin D Deficiency Hematologic History: Reports: Blood Transfusion(s), Iron Deficiency Dermatologic History: Reports: None - Infectious Disease History Infectious Disease History: Reports: Chicken Pox, Measles, Shingles - Past Surgical History Cardiovascular Surgical History: Reports: None Respiratory Surgical History: Reports: None GI Surgical History: Reports: Appendectomy, Cholecystectomy, Colonoscopy, EGD, Hernia, Abdominal, Hernia, Inguinal, Hernia Repair/Other Male Surgical History: Reports: Prostate Biopsy, Prostatectomy, Vasectomy Endocrine Surgical History: Reports: None Neurological Surgical History: Reports: C-Spine, Spinal Fusion, Thoracic Spine, Other (See Below) Other Neurological Surgeries/Procedures: T11 to S1 Musculoskeletal Surgical History: Reports: Arthroscopic Procedure, Carpal Tunnel , Knee Replacement, Shoulder Surgery Dermatological Surgical History: Reports: Skin Biopsy Social & Family History - Family History Cardiac: Reports: Heart Failure - Tobacco Use Smoking Status *Q: Former Smoker Years of Tobacco use: 40 Used Tobacco, but Quit: Yes Month/Year Tobacco Last Used: 1993 Second Hand Smoke Exposure: No - Caffeine Use Caffeine Use: Reports: Coffee Other Caffeine Use: 1x/wk - Recreational Drug Use Recreational Drug Use: No Review of Systems - Review of Systems Review Of Systems: See Below Respiratory: Denies: Shortness of Breath Cardiovascular: Denies: Chest Pain GI/Abdominal: Denies: Abdominal Pain Genitourinary: Reports: No Symptoms Skin: Reports: Bruising, Erythema Neurological: Reports: Other (Chronic neuropathy, especially lower extremities) ED EXAM, GENERAL - Physical Exam Exam: See Below Exam Limited By: No Limitations General Appearance: Alert, No Apparent Distress (Patient appears uncomfortable but is not distressed) Eye Exam: Bilateral Eye: Normal Inspection (EOMs intact, no jaundice) Head: Atraumatic Respiratory/Chest: No Respiratory Distress, Lungs Clear Cardiovascular: Regular Rate, Rhythm. No: Extra Beats GI/Abdominal: Soft, Non-Tender Extremities: Other (Tense edema is present through the entire right leg all the way to the groin. There is 1+ edema in the left leg. The right leg has erythema which is warm over the anterior aspect of the lower leg, and a well-healed surgical scar across the knee. There is ecchymosis and bruising around the ankle into the toes.) Psychiatric: Normal Affect, Normal Mood Skin Exam: Other (Scattered bruises in different phases of healing on both forearms) Course - Vital Signs Last Recorded V/S: Last Vital Signs Temp 97.8 F 06/25/17 23:39 Pulse 57 L 06/25/17 23:39 Resp 14 06/25/17 23:39 BP 142/52 H 06/25/17 23:39 Pulse Ox 96 06/25/17 23:39 - Orders/Labs/Meds Orders: Active Orders 24 hr Category Date Time Status VL Duplex Lwr Ext Veins Ltd Rt [US] Stat Exams 06/25/17 21:20 Taken Sodium Chloride 0.9% [Normal Saline] 1,000 ml Med 06/25/17 22:15 Active IV ASDIRECTED rOPINIRole [Requip] Med 06/26/17 21:54 Once 0.5 mg PO ONETIME ONE Medication Orders Sodium Chloride (Normal Saline) 1,000 mls @ 250 mls/hr IV ASDIRECTED [place] Last Admin: 06/25/17 22:25 Dose: 250 mls/hr Ropinirole HCl (Requip) 0.5 mg PO ONETIME ONE Stop: 06/26/17 21:55 Last Admin: 06/25/17 22:06 Dose: 0.5 mg Labs: Laboratory Tests 06/25/17 06/25/17 Range/Units 21:34 21:34 WBC 8.0 (4.5-11.0) K/uL RBC 3.64 L (4.30-5.90) M/uL Hgb 11.8 L (12.0-15.0) g/dL Hct 34.9 L (40.0-54.0) % MCV 96 (80-98) fL MCH 32 H (27-31) pg MCHC 34 (32-36) % Plt Count 215 (150-400) K/uL Neut % (Auto) 57 (36-66) % Lymph % (Auto) 28 (24-44) % [place] % (Auto) 11 H (2-6) % Eos % (Auto) 4 (2-4) % Baso % (Auto) 1 (0-1) % Sodium 140 (140-148) mmol/L Potassium 3.3 L (3.6-5.2) mmol/L Chloride 99 L (100-108) mmol/L Carbon Dioxide 33 H (21-32) mmol/L Anion Gap 11.3 (5.0-14.0) mmol/L BUN 18 (7-18) mg/dL Creatinine 1.3 (0.8-1.3) mg/dL Est Cr Clr Drug Dosing 47.46 mL/min Estimated GFR (MDRD) 53 L (>60) Glucose 139 H (74-106) mg/dL Calcium 8.9 (8.5-10.1) mg/dL Total Bilirubin 0.8 D (0.2-1.0) mg/dL AST 25 (15-37) U/L ALT 24 (12-78) U/L Alkaline Phosphatase 82 (46-116) U/L Total Protein 7.0 (6.4-8.2) g/dL Albumin 3.1 L (3.4-5.0) g/dL Globulin 3.9 H (2.3-3.5) g/dL Albumin/Globulin Ratio 0.8 L (1.2-2.2) Meds: Medications Generic Name Dose Route Start Last Admin Trade Name Freq PRN Reason Stop Dose Admin Sodium Chloride 1,000 mls @ 250 mls/hr 06/25/17 22:15 06/25/17 22:25 Normal Saline IV 250 mls/hr ASDIRECTED [place] Administration Ropinirole HCl 0.5 mg 06/26/17 21:54 06/25/17 22:06 Requip PO 06/26/17 21:55 0.5 mg ONETIME ONE Administration Discontinued Medications Generic Name Dose Route Start Last Admin Trade Name Freq PRN Reason Stop Dose Admin Hydrocodone Bitart/Acetaminophen 1 tab 06/25/17 21:47 06/25/17 22:03 [place]osp[place] 325-10 Mg PO 06/25/17 21:48 1 tab ONETIME ONE Administration Ceftriaxone Sodium 1 gm/ 50 mls @ 100 mls/hr 06/25/17 22:14 06/25/17 22:36 Sodium Chloride IV 06/25/17 22:43 100 mls/hr ONETIME ONE Administration Pregabalin 50 mg 06/25/17 21:42 06/25/17 22:03 Lyrica PO 06/25/17 21:43 50 mg ONETIME ONE Administration Ropinirole HCl Confirm 06/25/17 21:55 06/25/17 21:58 Requip Administered 06/25/17 21:56 Not Given Dose 0.5 mg .ROUTE .STK-MED ONE - Re-Assessments/Exams Free Text/Narrative Re-Assessment/Exam: 06/25/17 22:33 CBC, CMP were obtained, white count is normal. Potassium is 3.3, otherwise the CMP is relatively reassuring. A DVT ultrasound study was done of the right leg which was negative for DVT. There was some prominent lymph nodes in the groin likely related to the inflammatory process of the right leg. The patient was given his regular doses of Lyrica and Requip, a 10 mg hydrocodone for extra pain control and Dr. Dunham was called to consider admission for IV treatment of cellulitis. This patient has too much swelling and pain for him to be able to go home without risking significant injury. Departure - Departure Time of Disposition: 23:04 Disposition: Admitted As Inpatient 67 Condition: Fair Clinical Impression: Cellulitis of leg, right - Discharge Information - My Orders Last 24 Hours: My Active Orders 06/25/17 21:20 VL Duplex Lwr Ext Veins Ltd Rt [US] Stat 06/25/17 22:15 Sodium Chloride 0.9% [Normal Saline] 1,000 ml IV ASDIRECTED 06/26/17 21:54 rOPINIRole [Requip] 0.5 mg PO ONETIME ONE - Assessment/Plan Last 24 Hours: My Active Orders 06/25/17 21:20 VL Duplex Lwr Ext Veins Ltd Rt [US] Stat 06/25/17 22:15 Sodium Chloride 0.9% [Normal Saline] 1,000 ml IV ASDIRECTED 06/26/17 21:54 rOPINIRole [Requip] 0.5 mg PO ONETIME ONE
[2017-06-25] MEDS ORDERED: Acetaminophen/HYDROcodone 325-10 MG Tab PO ONE (21:47)
[2017-06-25] MEDS ORDERED: rOPINIRole 0.5 MG Tab ONE (21:55)
[2017-06-25] MEDS ORDERED: cefTRIAXone 1 GM in Sodium Chloride 0.9% 50 ML IV ONE (22:14)
[2017-06-25] MEDS ORDERED: Sodium Chloride 0.9% 1,000 ML IV SCH (22:15)
[2017-06-26] MEDS ORDERED: Albuterol 8 GM Inhaler INH PRN (00:13)
[2017-06-26] MEDS ORDERED: Nitroglycerin 0.4 MG Tab.SL SL PRN (00:13)
[2017-06-26] MEDS ORDERED: Acetaminophen 325 MG Tab, 50 Tab Bulk Bottle PO PRN (00:16)
--- NOTE | 2017-06-26 02:10 | HP ---
IDENTIFYING DATA: Nasir Walls is an 82-year-old male from [place]. CHIEF COMPLAINT: Right leg pain. HISTORY OF PRESENT ILLNESS: Adult male, who had a witnessed syncopal episode with loss of consciousness 5 days ago. He sustained a contusion to the right leg with bruising about the ankle and dorsum of the foot. X-rays were unremarkable with no evidence of identified fracture. He had mild aching at the foot through the week. Over the last 12 hours, he has developed a rather rapid onset of redness, pain, and swelling with symptoms extending to the distal thigh area. He has had no fevers. Does have occasional chills noted. No left leg symptoms. No history of DVT or peripheral vascular disease. 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 He was seen in the emergency room, was found to have a normal WBC, a venous Doppler without evidence of DVT, and he is now admitted for antibiotic therapy for a presumptive cellulitis. PAST MEDICAL HISTORY: Multiple previous surgeries including repeated back surgeries with subsequent fusion of T11 through sacrum. He has had previous prostate resection, cholecystectomy, appendectomy, inguinal herniorrhaphy, abdominal hernia repair, and EGD. Additionally, he has had prior bilateral knee replacement, shoulder surgery, carpal tunnel release, and C-spine fusion. Chronic medical problems include type 2 diabetes of 2 years duration, hypertension, hyperlipidemia, mild coronary artery disease without previous DE, atrial fibrillation with recent initiation of anticoagulant therapy. ALLERGIES: REPORTS NAUSEA AND VOMITING WITH USE OF CODEINE, HEADACHES WITH ADMINISTRATION OF MORPHINE. CURRENT MEDICATIONS: Tramadol 50 mg q.8 hours p.r.n. pain, Lomotil 2 tablets four times a day p.r.n. diarrhea, Lyrica 75 mg t.i.d. for peripheral neuropathy, clonazepam 0.5 mg at bedtime, nitroglycerin 0.4 mg sublingually p.r.n. angina, albuterol nebulizer 2.5 mg q.4 hours p.r.n. shortness of breath, atorvastatin 40 mg daily, sumatriptan 50 mg p.r.n. migraine, apixaban 5 mg b.i.d., diltiazem CD 120 mg daily, ropinirole 0.25 mg a.m. and 0.75 mg at bedtime, metformin 500 mg daily, furosemide 60 mg daily, pantoprazole 80 mg daily, finasteride 5 mg daily, ferrous gluconate 324 mg b.i.d., calcium carbonate with vitamin D 600/200 one capsule b.i.d., omega-3 fatty acid fish oil capsules 1000 mg b.i.d., aspirin 81 mg daily, cholecalciferol 2000 units daily, cyanocobalamin 1000 mcg daily, multivitamin one daily. HABITS: Previous tobacco use, abstaining for 20 years time. Caffeinated beverage intake, averages less than 1 cup of coffee daily. Rare use of alcohol. IMMUNIZATIONS: Does receive annual influenza vaccine. Pneumococcal vaccine series is up to date. Has had a previous Zostavax, Tdap provided in 2015. SOCIAL HISTORY: Retired, residing with his . Currently performs ADLs independently. Maintains adequate vision, intact hearing, is able to drive. FAMILY HISTORY: Denies familial history of DVT, pulmonary emboli, peripheral vascular disease, or recent acute illnesses. REVIEW OF SYSTEMS: NEUROLOGIC: No history of strokes or seizures. Intermittent migraine headaches noted. Denies cataracts, glaucoma, retinopathy, or focal weakness. Bilateral sensory loss and paresthesias in the feet secondary to peripheral neuropathy are noted. CARDIAC: Cardiac catheterization in March of 2017 revealed mild atherosclerotic disease without advanced occlusive disease. He does have chronic atrial fibrillation with anticoagulant therapy initiated in March. This is accompanied by known type 2 diabetes, hypertension, and hyperlipidemia. No history of congestive heart failure. RESPIRATORY: Denies cough, sputum production, tuberculosis, or recent URIs. Mild obstructive pulmonary disease with p.r.n. use of bronchodilators is noted. GI: Denies chronic dyspepsia, nausea, emesis, hepatitis, constipation, melena, or hematochezia. Previous colonoscopy. : History of urinary retention, previous prostate resection. No history of prostatic malignancy. MUSCULOSKELETAL: Bilateral total knee arthroplasties. Mild arthralgias at the shoulders and hands. PHYSICAL EXAMINATION: GENERAL: Appearance is that of an adult male currently in no acute distress, resting quietly in bed. INITIAL VITALS: Temperature 97.8, pulse rate 57, respiratory rate 14, blood pressure 142/52 with O2 saturations of 96%. HEENT: Hearing is intact with normal canals. Pupils reactive. Sclerae anicteric. Extraocular eye movements are intact. No oropharyngeal lesions. NECK: Brisk, irregular carotid pulses. Controlled rate. No murmurs or bruits noted. No stridor or nuchal rigidity. LUNGS: Clear, resonant, non-tachypneic, symmetrical aeration. HEART: Irregular, controlled rate. No murmurs or gallops heard. ABDOMEN: Soft, nontender, and nondistended. No organomegaly or other unusual masses. No guarding, rebound, referred pain, or CVA tenderness. Palpable femoral pulses without femoral or aortic bruits. : Deferred. EXTREMITIES: Previous bilateral total knee arthroplasties. Posterior tibial and dorsal pedal pulses are palpable. He has brisk capillary refill. Diminished sensation in the feet. No open skin lesions. He has soft tissue swelling, warmth, induration, and palpable tenderness extending from the knee to the ankle of the right lower extremity. Erythematous changes are evident. No palpable cords are noted at the mid foot and base of the toes of the right lower extremity. He has noted ecchymosis from trauma of earlier this week. LABORATORY DATA: On admission: WBC 8000, hemoglobin 11.8, hematocrit 34.9, platelet count 215,000. Sodium 140, potassium 3.3, BUN 18, creatinine 1.3, glucose 139, calcium 8.9. Alkaline phosphatase 82, AST 25. Venous Dopplers of lower extremities showed no evidence of DVT. IMPRESSIONS: 1. Right leg pain, swelling, and induration suggesting cellulitis. 2. Fall with contusion to the right lower extremity earlier this week. 3. History of type 2 diabetes with chronic atrial fibrillation and peripheral neuropathy. 4. Hypertension. 5. Hyperlipidemia. 6. Remote history of tobacco use, now abstaining. 7. Records suggest a history of chronic mild obstructive pulmonary disease. PLAN: The patient will be admitted to medical floor for continued supportive care. IV fluids and antibiotic therapies are provided. Warm compresses to the right leg have been ordered. JULISSA stocking to the unaffected left lower extremity will be placed on a daily basis. Allow activity with standby assistance. Consistent carb diet. The patient desires no CPR with respiratory support if a reversible illness is identified. We will monitor fasting blood sugars daily. Continue with his standard home medication and additionally will provide daily IV ceftriaxone as well as analgesic therapies. Anticipate discharge home within 72 hours. If complications develop and leg swelling and induration persist, followup with Orthopedic Services may be warranted. Taras Dunham MD /[id number]
[2017-06-26] MEDS: NS + KCl 20mEq/L 1,000 ML IV SCH ×2 (02:44→13:53)
[2017-06-26] MEDS: Acetaminophen/HYDROcodone 325-10 MG Tab PO PRN ×3 (03:03→18:27)
[2017-06-26] MEDS ORDERED: Acetaminophen 325 MG Tab PO PRN (07:32)
--- NOTE | 2017-06-26 08:17 | PN ---
DATE OF SERVICE: 06/26/2017 SUBJECTIVE: An elderly male was admitted with increased swelling, redness, and pain in the right leg yesterday evening with presumptive cellulitis. He has had no fever through the night, moderate aching. Responds favorably to use of analgesics on a p.r.n. basis. Has been voiding well. Denies abdominal upset. Rested intermittently through the nighttime hours. OBJECTIVE: VITAL SIGNS: Temperature 36 degrees centigrade, pulse rate 65, blood pressure 107/47, respiratory rate 14, and O2 sats 97% on room air. Fasting blood sugar this morning was stable at 117 mg%. MUSCULOSKELETAL: Lower extremities show persistent redness, induration, and warmth of the right leg, slightly diminished in its intensity. Arterial pulses are intact. No skin breakdown. IMPRESSION AND PLAN: 1. Cellulitis of the right leg. IV antibiotics have been initiated. We will continue with relative rest, warm packs, and elevation in bed. Ambulate with assistance. Decrease IV fluids to 75 mL/hour. Follow up labs in a.m. to monitor renal function. Potassium levels have been requested. 2. Type 2 diabetes. Continue with metformin and glucose monitoring with consistent carb diet. 3. Chronic atrial fibrillation, is maintained on apixaban anticoagulant therapy as well as diltiazem for rate control. Cardiac status appears stable. Taras Dunham MD /[id number]
[2017-06-26] MEDS: metFORMIN 500 MG Tab PO SCH (08:45)
[2017-06-26] MEDS: Diltiazem 120 MG Cap.CD PO SCH ×3 (08:46→21:27)
[2017-06-26] MEDS: Pantoprazole 40 MG Tab.CR PO SCH (08:46)
[2017-06-26] MEDS: Isosorbide Mononitrate 30 MG Tab.ER PO SCH (08:47)
[2017-06-26] MEDS: Finasteride 5 MG Tab PO SCH (08:47)
[2017-06-26] MEDS: Aspirin 81 MG Tab.EC PO SCH (08:47)
[2017-06-26] MEDS ORDERED: Apixaban 5 MG Tab PO SCH (09:00)
[2017-06-26] MEDS ORDERED: Furosemide 20 MG Tab PO SCH (09:00)
[2017-06-26] MEDS: SUMAtriptan 50 MG Tab PO PRN ×2 (09:41→18:27)
[2017-06-26] MEDS: Pregabalin 50 MG Cap PO SCH ×2 (10:12→13:54)
[2017-06-26] MEDS: ceFAZolin 2 GM in Premix Bag 1 BAG IV SCH ×2 (13:54→21:31)
[2017-06-26] MEDS ORDERED: ceFAZolin 2 GM in Sodium Chloride 0.9% 50 ML IV SCH (14:00)
[2017-06-26] MEDS ORDERED: rOPINIRole 0.5 MG Tab PO SCH (17:00)
[2017-06-26] MEDS ORDERED: rOPINIRole 0.5 MG Tab PO ONE ×2 (21:00→21:54)
[2017-06-26] MEDS ORDERED: ClonazePAM 1 MG Tab PO SCH (21:00)
[2017-06-26] MEDS: Apixaban 5 MG Tab PO SCH (21:10)
[2017-06-26] MEDS: atorvaSTATin 20 MG Tab PO SCH (21:11)
[2017-06-26] MEDS: Pregabalin 100 MG Cap PO SCH (21:24)
[2017-06-26] MEDS: ClonazePAM 0.5 MG Tab PO SCH (21:24)
[2017-06-26] MEDS: rOPINIRole 0.5 MG Tab PO SCH (21:25)
[2017-06-27] MEDS: ceFAZolin 2 GM in Premix Bag 1 BAG IV SCH ×3 (05:09→21:10)
[2017-06-27] MEDS: NS + KCl 20mEq/L 1,000 ML IV SCH ×2 (05:11→19:19)
[2017-06-27] MEDS: Pantoprazole 40 MG Tab.CR PO SCH ×2 (07:09→21:02)
[2017-06-27] MEDS: metFORMIN 500 MG Tab PO SCH (08:07)
[2017-06-27] MEDS: Apixaban 5 MG Tab PO SCH ×2 (08:07→21:02)
[2017-06-27] MEDS: Aspirin 81 MG Tab.EC PO SCH ×2 (08:07→21:02)
[2017-06-27] MEDS: rOPINIRole 0.5 MG Tab PO SCH ×3 (08:09→21:04)
[2017-06-27] MEDS: Finasteride 5 MG Tab PO SCH (08:09)
[2017-06-27] MEDS: Acetaminophen/HYDROcodone 325-10 MG Tab PO PRN ×2 (08:15→17:49)
--- NOTE | 2017-06-27 10:22 | PCM.PN ---
- General Info Date of Service: 06/27/17 Functional Status: Reports: Pain Controlled, Tolerating Diet. Denies: Ambulating - Review of Systems General: Reports: Weakness. Denies: Fever Musculoskeletal: Reports: Leg Pain Systems Review Comment:: Overnight the patient had difficulty with nausea and some vomiting. Blood pressures have been low and blood pressure medications have been held. He has not had any fevers. Right leg pain and swelling don't seem to be any better today than yesterday. Still has a fair amount of pain with any sort of pressure on the leg. No abdominal pain reported. - Patient Data Vitals - Most Recent: Last Vital Signs Temp 36.0 C 06/27/17 07:00 Pulse 55 L 06/27/17 07:00 Resp 18 06/27/17 07:00 BP 108/51 L 06/27/17 07:00 Pulse Ox 98 06/27/17 07:00 Weight - Most Recent: 104.78 kg I&O - Last 24 Hours: Intake & Output 06/26/17 06/27/17 06/27/17 22:59 06:59 14:59 Intake Total 603 880 230 Output Total 600 Balance 603 280 230 Lab Results Last 24 Hours: Laboratory Results - last 24 hr 06/27/17 Range/Units 05:30 Sodium 142 (140-148) mmol/L Potassium 3.7 (3.6-5.2) mmol/L Chloride 106 (100-108) mmol/L Carbon Dioxide 30 (21-32) mmol/L Anion Gap 5.9 (5.0-14.0) mmol/L BUN 15 (7-18) mg/dL Creatinine 1.3 (0.8-1.3) mg/dL Est Cr Clr Drug Dosing 47.27 mL/min Estimated GFR (MDRD) 53 L (>60) Glucose 113 H (74-106) mg/dL Calcium 7.8 L (8.5-10.1) mg/dL Med Orders - Current: Current Medications Acetaminophen (Tylenol) 650 mg PO Q6H PRN PRN Reason: FEVER/PAIN Hydrocodone Bitart/Acetaminophen ([place] 325-10 Mg) 1 tab PO Q6H PRN PRN Reason: Pain Last Admin: 06/27/17 08:15 Dose: 1 tab Albuterol (Ventolin Hfa) 0 gm INH Q6H PRN PRN Reason: Wheezing Last Admin: 06/26/17 09:09 Dose: 2 puff Apixaban (Eliquis) 5 mg PO BID [facility] Last Admin: 06/27/17 08:07 Dose: 5 mg Aspirin (Halfprin) 81 mg PO DAILY [facility] Last Admin: 06/27/17 08:07 Dose: Not Given Atorvastatin Calcium (Lipitor) 40 mg PO BEDTIME [facility] Last Admin: 06/26/17 21:11 Dose: 40 mg Clonazepam (Klonopin) 0.5 mg PO BEDTIME [facility] Last Admin: 06/26/17 21:24 Dose: 0.5 mg Diltiazem HCl (Cardizem Cd) 120 mg PO BID [facility] Last Admin: 06/26/17 21:27 Dose: Not Given Finasteride (Proscar) 5 mg PO DAILY [facility] Last Admin: 06/27/17 08:09 Dose: 5 mg Furosemide 20 mg/ Furosemide (40 mg) 60 mg PO DAILY [facility] Potassium Chloride/Sodium Chloride (Normal Saline With 20 Meq Kcl) 1,000 mls @ 75 mls/hr IV ASDIRECTED [facility] Last Admin: 06/27/17 05:11 Dose: 75 mls/hr Cefazolin Sodium/Dextrose 2 gm (/ Premix) 50 mls @ 100 mls/hr IV Q8HR [facility] Last Admin: 06/27/17 05:09 Dose: 100 mls/hr Isosorbide Mononitrate (Imdur) 30 mg PO DAILY [facility] Last Admin: 06/26/17 08:47 Dose: 30 mg Metformin HCl (Glucophage) 500 mg PO DAILY [facility] Last Admin: 06/27/17 08:07 Dose: 500 mg Nitroglycerin (Nitrostat) 0.4 mg SL ASDIRECTED PRN PRN Reason: Chest Pain Pantoprazole Sodium (Protonix) 80 mg PO ACBREAKFAST [facility] Last Admin: 06/27/17 07:09 Dose: Not Given Pregabalin (Lyrica) 50 mg PO PCLUNCH [place] Pregabalin (Lyrica) 100 mg PO BEDTIME [facility] Last Admin: 06/26/17 21:24 Dose: 100 mg Ropinirole HCl (Requip) 0.5 mg PO PCLUNCH [facility] Ropinirole HCl (Requip) 0.5 mg PO DAILY [facility] Last Admin: 06/27/17 08:09 Dose: 0.5 mg Ropinirole HCl (Requip) 1.5 mg PO BEDTIME [facility] Last Admin: 06/26/17 21:25 Dose: 1.5 mg Senna/Docusate Sodium (Senna Plus) 1 tab PO BID PRN PRN Reason: Constipation Last Admin: 06/27/17 08:10 Dose: 1 tab Sumatriptan Succinate (Imitrex) 50 mg PO DAILY PRN PRN Reason: migraine Last Admin: 06/26/17 18:27 Dose: 50 mg Discontinued Medications Hydrocodone Bitart/Acetaminophen ([place] 325-10 Mg) 1 tab PO ONETIME ONE Stop: 06/25/17 21:48 Last Admin: 06/25/17 22:03 Dose: 1 tab Apixaban (Eliquis) 5 mg PO DAILY [facility] Last Admin: 06/26/17 08:45 Dose: 5 mg Ceftriaxone Sodium 1 gm/ (Sodium Chloride) 50 mls @ 100 mls/hr IV ONETIME ONE Stop: 06/25/17 22:43 Last Admin: 06/25/17 22:36 Dose: 100 mls/hr Sodium Chloride (Normal Saline) 1,000 mls @ 250 mls/hr IV ASDIRECTED [facility] Last Admin: 06/25/17 22:25 Dose: 250 mls/hr Pregabalin (Lyrica) 50 mg PO ONETIME ONE Stop: 06/25/17 21:43 Last Admin: 06/25/17 22:03 Dose: 50 mg Pregabalin (Lyrica) 50 mg PO TID [facility] Last Admin: 06/26/17 13:54 Dose: Not Given Ropinirole HCl (Requip) 0.5 mg PO ONETIME ONE Stop: 06/26/17 21:55 Last Admin: 06/25/17 22:06 Dose: 0.5 mg Ropinirole HCl (Requip) Confirm Administered Dose 0.5 mg .ROUTE .STK-MED ONE Stop: 06/25/17 21:56 Last Admin: 06/25/17 21:58 Dose: Not Given Ropinirole HCl (Requip) 0.5 mg PO QPM [facility] Last Admin: 06/26/17 17:56 Dose: Not Given - Exam Quality Assessment: No: Supplemental Oxygen General: Alert, Oriented, Cooperative Neck: Supple Lungs: Clear to Auscultation, Normal Respiratory Effort Cardiovascular: Regular Rate, Regular Rhythm GI/Abdominal Exam: Soft, No Distention Extremities: Pedal Edema (Right > Left ), Increased Warmth (right lower leg ). No: Joint Swelling Skin: Warm, Dry, Rash (erythema right lower leg below the knee. Bruising right ankle ) Psy/Mental Status: Alert, Normal Affect - Problem List Review Problem List Initiated/Reviewed/Updated: Yes - My Orders Last 24 Hours: My Active Orders 06/26/17 14:00 ceFAZolin [Ancef] 2 gm Premix Bag 1 bag IV Q8HR 06/26/17 21:00 Pregabalin [Lyrica] 100 mg PO BEDTIME rOPINIRole [Requip] 1.5 mg PO BEDTIME 06/26/17 22:09 Docusate Sodium/Sennosides [Senna Plus] 1 tab PO BID PRN 06/27/17 09:00 rOPINIRole [Requip] 0.5 mg PO DAILY 06/27/17 10:30 Potassium Chloride 20 MEQ,Lidocaine 1% 2 ML IN 100ML NS @ 50 MLS/HR Potassium Chloride 20 meq Lidocaine 1% [Xylocaine 1%] 2 ml Sodium Chloride 0.9% [Normal Saline] 100 ml IV Q2H 06/27/17 13:00 Pregabalin [Lyrica] 50 mg PO PCLUNCH rOPINIRole [Requip] 0.5 mg PO PCLUNCH 06/28/17 05:00 BASIC METABOLIC PANEL,BMP [CHEM] Timed CBC W/O DIFF,HEMOGRAM [HEME] Timed (1) - Plan Plan:: ASSESSMENT AND PLAN - Right lower leg cellulitis - recent ankle sprain secondary to syncope preceded onset of cellulitis. Swelling and erythema stable compared to yesterday. He is not having fevers. Still having a fair amount of pain. -Continue cefazolin -Pain control Chronic atrial fibrillation - recent difficulties with syncope and during the hospital we have noted hypotension. Currently holding calcium channel mirlande, long-acting nitrate and furosemide. Heart rate has been well-controlled. Mild left leg edema but no evidence for pulmonary edema. -Hold calcium channel mirlande until blood pressure improves -Continue systemic anticoagulation Coronary artery disease - history of previous myocardial infarction. No active symptoms of ischemia. Management complicated by hypotension. -Hold long acting nitrate Type 2 diabetes mellitus - well controlled at this time. Complicated by neuropathy. -Continue home medications Maintenance issues - - DVT prophylaxis - apixiban - GI prophylaxis - PPI - Nutrition - diabetic diet Disposition - anticipate discharge to home after the hospital stay Jaun Harper M.D.
[2017-06-27] MEDS: Diltiazem 120 MG Cap.CD PO SCH (10:35)
[2017-06-27] MEDS: Isosorbide Mononitrate 30 MG Tab.ER PO SCH (10:36)
[2017-06-27] MEDS: Potassium Chloride 20 MEQ, Lidocaine 1% 2 ML in Sodium Chloride 0.9% 100 ML IV SCH ×2 (11:22→13:24)
[2017-06-27] MEDS: Pregabalin 50 MG Cap PO SCH (13:24)
[2017-06-27] MEDS ORDERED: Ondansetron 4 MG/2 ML SDV IVPUSH PRN (15:28)
[2017-06-27] MEDS ORDERED: Ondansetron 4 MG Tab.DIS PO PRN (15:28)
[2017-06-27] MEDS: SUMAtriptan 50 MG Tab PO PRN (17:50)
[2017-06-27] MEDS: atorvaSTATin 20 MG Tab PO SCH (21:03)
[2017-06-27] MEDS: ClonazePAM 0.5 MG Tab PO SCH (21:09)
[2017-06-27] MEDS: Pregabalin 100 MG Cap PO SCH (21:09)
[2017-06-28] MEDS: ceFAZolin 2 GM in Premix Bag 1 BAG IV SCH ×3 (05:42→21:06)
[2017-06-28] MEDS: metFORMIN 500 MG Tab PO SCH (07:59)
[2017-06-28] MEDS: Acetaminophen/HYDROcodone 325-10 MG Tab PO PRN ×2 (07:59→21:57)
[2017-06-28] MEDS: Apixaban 5 MG Tab PO SCH ×2 (08:00→21:05)
[2017-06-28] MEDS: Finasteride 5 MG Tab PO SCH (08:00)
[2017-06-28] MEDS: rOPINIRole 0.5 MG Tab PO SCH ×3 (08:00→21:06)
--- NOTE | 2017-06-28 08:55 | US ---
VL Duplex Lwr Ext Veins Ltd Rt HISTORY: Swelling, pain. FINDINGS: The deep veins of the right lower extremity demonstrate normal augmentation and compressibi lity. No evidence for deep venous thrombosis. IMPRESSION: Normal lower extremity venous Doppler study.
[2017-06-28] MEDS ORDERED: Magnesium Hydroxide 400 MG/5 ML Susp 30 ML Cup PO PRN (13:05)
[2017-06-28] MEDS ORDERED: Polyethylene Glycol 3350 Powder 17 GM Packet PO PRN (13:05)
--- NOTE | 2017-06-28 13:11 | PCM.PN ---
- General Info Date of Service: 06/28/17 Subjective Update: This patient is an 82-year-old gentleman who was admitted through the emergency department with cellulitis involving his right lower leg. Over the past few days of hospitalization there's been improvement in the cellulitis. There is mild residual erythema with some increase in warmth and persistent peripheral edema which is fairly significant. Vital signs have been stable and he has remained afebrile over the last 24 hours. Functional Status: Reports: Pain Controlled, Urinating - Review of Systems General: Reports: Weakness. Denies: Fever, Chills Pulmonary: Reports: No Symptoms Cardiovascular: Reports: No Symptoms Gastrointestinal: Reports: Decreased Appetite, Nausea. Denies: Abdominal Pain, Difficulty Swallowing, Vomiting Skin: Reports: Other (Mild persistent erythema and significant edema right lower extremity) - Patient Data Vitals - Most Recent: Last Vital Signs Temp 96.6 F 06/28/17 11:00 Pulse 60 06/28/17 11:00 Resp 18 06/28/17 11:00 BP 110/51 L 06/28/17 11:00 Pulse Ox 97 06/28/17 11:00 Weight - Most Recent: 231 lb I&O - Last 24 Hours: Intake & Output 06/27/17 06/28/17 06/28/17 22:59 06:59 14:59 Intake Total 1514 50 965 Output Total 475 575 500 Balance 1039 -525 465 Lab Results Last 24 Hours: Laboratory Results - last 24 hr 06/28/17 06/28/17 Range/Units 05:47 05:47 WBC 5.8 (4.5-11.0) K/uL RBC 3.28 L (4.30-5.90) M/uL Hgb 10.4 L (12.0-15.0) g/dL Hct 32.2 L (40.0-54.0) % MCV 98 (80-98) fL MCH 32 H (27-31) pg MCHC 32 (32-36) % Plt Count 210 (150-400) K/uL Sodium 140 (140-148) mmol/L Potassium 4.5 (3.6-5.2) mmol/L Chloride 106 (100-108) mmol/L Carbon Dioxide 30 (21-32) mmol/L Anion Gap 4.4 L (5.0-14.0) mmol/L BUN 13 (7-18) mg/dL Creatinine 1.0 (0.8-1.3) mg/dL Est Cr Clr Drug Dosing 61.45 mL/min Estimated GFR (MDRD) > 60 (>60) Glucose 97 (74-106) mg/dL Calcium 8.1 L (8.5-10.1) mg/dL Med Orders - Current: Current Medications Acetaminophen (Tylenol) 650 mg PO Q6H PRN PRN Reason: FEVER/PAIN Hydrocodone Bitart/Acetaminophen ([place] 325-10 Mg) 1 tab PO Q6H PRN PRN Reason: Pain Last Admin: 06/28/17 07:59 Dose: 1 tab Albuterol (Ventolin Hfa) 0 gm INH Q6H PRN PRN Reason: Wheezing Last Admin: 06/26/17 09:09 Dose: 2 puff Apixaban (Eliquis) 5 mg PO BID [facility] Last Admin: 06/28/17 08:00 Dose: 5 mg Aspirin (Halfprin) 81 mg PO BEDTIME [place] Last Admin: 06/27/17 21:02 Dose: 81 mg Atorvastatin Calcium (Lipitor) 40 mg PO BEDTIME [place] Last Admin: 06/27/17 21:03 Dose: 40 mg Clonazepam (Klonopin) 0.5 mg PO BEDTIME [place] Last Admin: 06/27/17 21:09 Dose: 0.5 mg Diltiazem HCl (Cardizem Cd) 120 mg PO BID [place] Last Admin: 06/27/17 10:35 Dose: Not Given Finasteride (Proscar) 5 mg PO DAILY [place] Last Admin: 06/28/17 08:00 Dose: 5 mg Furosemide 20 mg/ Furosemide (40 mg) 60 mg PO DAILY [facility] Last Admin: 06/27/17 10:37 Dose: Not Given Furosemide (Lasix) 40 mg IVPUSH NOW ONE Stop: 06/28/17 16:01 Cefazolin Sodium/Dextrose 2 gm (/ Premix) 50 mls @ 100 mls/hr IV Q8HR [place] Last Admin: 06/28/17 05:42 Dose: 100 mls/hr Metformin HCl (Glucophage) 500 mg PO DAILY [facility] Last Admin: 06/28/17 07:59 Dose: 500 mg Nitroglycerin (Nitrostat) 0.4 mg SL ASDIRECTED PRN PRN Reason: Chest Pain Ondansetron HCl (Zofran Odt) 4 mg PO Q6H PRN PRN Reason: Nausea/Vomiting Ondansetron HCl (Zofran) 4 mg IVPUSH Q6H PRN PRN Reason: Nausea/Vomiting Last Admin: 06/27/17 15:39 Dose: 4 mg Pantoprazole Sodium (Protonix) 40 mg PO BEDTIME [facility] Last Admin: 06/27/17 21:02 Dose: 40 mg Pregabalin (Lyrica) 50 mg PO PCLUNCH [facility] Last Admin: 06/27/17 13:24 Dose: 50 mg Pregabalin (Lyrica) 100 mg PO BEDTIME [facility] Last Admin: 06/27/17 21:09 Dose: 100 mg Ropinirole HCl (Requip) 0.5 mg PO PCLUNCH [facility] Last Admin: 06/27/17 13:24 Dose: 0.5 mg Ropinirole HCl (Requip) 0.5 mg PO DAILY [facility] Last Admin: 06/28/17 08:00 Dose: 0.5 mg Ropinirole HCl (Requip) 1.5 mg PO BEDTIME [facility] Last Admin: 06/27/17 21:04 Dose: 1.5 mg Senna/Docusate Sodium (Senna Plus) 1 tab PO BID PRN PRN Reason: Constipation Last Admin: 06/28/17 07:59 Dose: 1 tab Sumatriptan Succinate (Imitrex) 50 mg PO DAILY PRN PRN Reason: migraine Last Admin: 06/27/17 17:50 Dose: 50 mg Discontinued Medications Hydrocodone Bitart/Acetaminophen ([place] 325-10 Mg) 1 tab PO ONETIME ONE Stop: 06/25/17 21:48 Last Admin: 06/25/17 22:03 Dose: 1 tab Apixaban (Eliquis) 5 mg PO DAILY [facility] Last Admin: 06/26/17 08:45 Dose: 5 mg Aspirin (Halfprin) 81 mg PO DAILY [facility] Last Admin: 06/27/17 08:07 Dose: Not Given Ceftriaxone Sodium 1 gm/ (Sodium Chloride) 50 mls @ 100 mls/hr IV ONETIME ONE Stop: 06/25/17 22:43 Last Admin: 06/25/17 22:36 Dose: 100 mls/hr Sodium Chloride (Normal Saline) 1,000 mls @ 250 mls/hr IV ASDIRECTED [facility] Last Admin: 06/25/17 22:25 Dose: 250 mls/hr Potassium Chloride/Sodium Chloride (Normal Saline With 20 Meq Kcl) 1,000 mls @ 75 mls/hr IV ASDIRECTED [facility], [facility] Last Admin: 06/27/17 19:19 Dose: 75 mls/hr Potassium Chloride 20 meq/Lidocaine HCl 2 ml/ Sodium Chloride 112 mls @ 56 mls/ hr IV Q2H [facility] Stop: 06/27/17 14:59 Last Admin: 06/27/17 13:24 Dose: 56 mls/hr Isosorbide Mononitrate (Imdur) 30 mg PO DAILY [facility] Last Admin: 06/27/17 10:36 Dose: Not Given Pantoprazole Sodium (Protonix) 80 mg PO ACBREAKFAST [facility] Last Admin: 06/27/17 07:09 Dose: Not Given Pregabalin (Lyrica) 50 mg PO ONETIME ONE Stop: 06/25/17 21:43 Last Admin: 06/25/17 22:03 Dose: 50 mg Pregabalin (Lyrica) 50 mg PO TID [facility] Last Admin: 06/26/17 13:54 Dose: Not Given Ropinirole HCl (Requip) 0.5 mg PO ONETIME ONE Stop: 06/26/17 21:55 Last Admin: 06/25/17 22:06 Dose: 0.5 mg Ropinirole HCl (Requip) Confirm Administered Dose 0.5 mg .ROUTE .STK-MED ONE Stop: 06/25/17 21:56 Last Admin: 06/25/17 21:58 Dose: Not Given Ropinirole HCl (Requip) 0.5 mg PO QPM [facility] Last Admin: 06/26/17 17:56 Dose: Not Given - Exam Quality Assessment: DVT Prophylaxis General: Alert, Oriented, Cooperative, Mild Distress Lungs: Clear to Auscultation, Normal Respiratory Effort Cardiovascular: Regular Rate, Regular Rhythm, No Murmurs GI/Abdominal Exam: Soft, Non-Tender, No Organomegaly, Distended Extremities: Other (Significant edema right lower leg with mild residual erythema) - Problem List Review Problem List Initiated/Reviewed/Updated: Yes - My Orders Last 24 Hours: My Active Orders 06/28/17 13:04 Convert IV to Saline Lock [OM.PC] Routine 06/28/17 13:05 Magnesium Hydroxide [Milk of Magnesia] 30 ml PO Q6H PRN Polyethylene Glycol 3350 [MiraLAX] 17 gm PO BID PRN Polyethylene Glycol 3350 [MiraLAX] 17 gm PO ONETIME ONE 06/28/17 13:15 Docusate Sodium [Colace] 100 mg PO BID 06/28/17 16:00 Furosemide [Lasix] 40 mg IVPUSH NOW ONE 06/29/17 05:00 BASIC METABOLIC PANEL,BMP [CHEM] Timed MAGNESIUM [CHEM] Timed - Plan Plan:: ASSESSMENT AND PLAN - Right lower leg cellulitis - recent ankle sprain secondary to syncope preceded onset of cellulitis. Persistent peripheral edema right lower leg, mild residual erythema -Saline lock IV -Furosemide 40 mg IV this afternoon -Continue cefazolin -Pain control Chronic atrial fibrillation - recent difficulties with syncope and during the hospital we have noted hypotension. Currently holding calcium channel mirlande, long-acting nitrate. Heart rate has been well-controlled. -Hold calcium channel mirlande until blood pressure improves -Continue systemic anticoagulation Coronary artery disease - history of previous myocardial infarction. No active symptoms of ischemia. Management complicated by hypotension. -Hold long acting nitrate Type 2 diabetes mellitus - well controlled at this time. Complicated by neuropathy. -Continue home medications Maintenance issues - - DVT prophylaxis - apixiban - GI prophylaxis - PPI - Nutrition - diabetic diet Disposition - anticipate discharge to home after the hospital stay
[2017-06-28] MEDS: Pregabalin 50 MG Cap PO SCH (13:39)
[2017-06-28] MEDS: Docusate Sodium 100 MG Cap PO SCH ×2 (13:41→21:05)
[2017-06-28] MEDS ORDERED: Polyethylene Glycol 3350 Powder 17 GM Packet PO ONE (14:00)
[2017-06-28] MEDS ORDERED: Furosemide 40 MG/4 ML VIAL IVPUSH ONE (16:00)
[2017-06-28] MEDS: Diltiazem 120 MG Cap.CD PO SCH (21:05)
[2017-06-28] MEDS: ClonazePAM 0.5 MG Tab PO SCH (21:05)
[2017-06-28] MEDS: Aspirin 81 MG Tab.EC PO SCH (21:05)
[2017-06-28] MEDS: atorvaSTATin 20 MG Tab PO SCH (21:05)
[2017-06-28] MEDS: Pregabalin 100 MG Cap PO SCH (21:06)
[2017-06-28] MEDS: Pantoprazole 40 MG Tab.CR PO SCH (21:06)
[2017-06-29] MEDS: ceFAZolin 2 GM in Premix Bag 1 BAG IV SCH ×3 (05:11→21:39)
[2017-06-29] MEDS: rOPINIRole 0.5 MG Tab PO SCH ×3 (08:58→21:42)
[2017-06-29] MEDS: metFORMIN 500 MG Tab PO SCH (08:58)
[2017-06-29] MEDS: Finasteride 5 MG Tab PO SCH (08:59)
[2017-06-29] MEDS: Docusate Sodium 100 MG Cap PO SCH ×2 (08:59→21:40)
[2017-06-29] MEDS: Apixaban 5 MG Tab PO SCH ×2 (09:00→21:40)
[2017-06-29] MEDS: Diltiazem 120 MG Cap.CD PO SCH (11:24)
[2017-06-29] MEDS: Pregabalin 50 MG Cap PO SCH (13:01)
[2017-06-29] MEDS: Acetaminophen/HYDROcodone 325-10 MG Tab PO PRN (15:50)
--- NOTE | 2017-06-29 16:54 | PCM.PN ---
- General Info Date of Service: 06/29/17 Subjective Update: This patient has been stable overnight, he experienced an excellent diuresis with furosemide given yesterday. As a result of diuresis edema in his leg has significantly improved but not totally resolved. There is mild to moderate residual erythema with mild increase in warmth. Vital signs have been stable and he has remained afebrile. Functional Status: Reports: Tolerating Diet, Urinating - Review of Systems General: Denies: Fever, Chills Pulmonary: Reports: No Symptoms Cardiovascular: Reports: No Symptoms Gastrointestinal: Reports: No Symptoms - Patient Data Vitals - Most Recent: Last Vital Signs Temp 97.3 F 06/29/17 15:15 Pulse 68 06/29/17 15:15 Resp 16 06/29/17 15:15 BP 118/52 L 06/29/17 15:15 Pulse Ox 98 06/29/17 15:15 Weight - Most Recent: 231 lb 0.006 oz I&O - Last 24 Hours: Intake & Output 06/29/17 06/29/17 06/29/17 06:59 14:59 22:59 Intake Total 50 Output Total 550 Balance -500 Lab Results Last 24 Hours: Laboratory Results - last 24 hr 06/29/17 Range/Units 04:55 Sodium 140 (140-148) mmol/L Potassium 4.1 (3.6-5.2) mmol/L Chloride 101 (100-108) mmol/L Carbon Dioxide 33 H (21-32) mmol/L Anion Gap 10.1 (5.0-14.0) mmol/L BUN 14 (7-18) mg/dL Creatinine 1.0 (0.8-1.3) mg/dL Est Cr Clr Drug Dosing 61.45 mL/min Estimated GFR (MDRD) > 60 (>60) Glucose 101 (74-106) mg/dL Calcium 8.3 L (8.5-10.1) mg/dL Magnesium 2.2 (1.8-2.4) mg/dL Med Orders - Current: Current Medications Acetaminophen (Tylenol) 650 mg PO Q6H PRN PRN Reason: FEVER/PAIN Hydrocodone Bitart/Acetaminophen ([place] 325-10 Mg) 1 tab PO Q6H PRN PRN Reason: Pain Last Admin: 06/29/17 15:50 Dose: 1 tab Albuterol (Ventolin Hfa) 0 gm INH Q6H PRN PRN Reason: Wheezing Last Admin: 06/26/17 09:09 Dose: 2 puff Apixaban (Eliquis) 5 mg PO BID [facility] Last Admin: 06/29/17 09:00 Dose: 5 mg Aspirin (Halfprin) 81 mg PO BEDTIME [facility] Last Admin: 06/28/17 21:05 Dose: 81 mg Atorvastatin Calcium (Lipitor) 40 mg PO BEDTIME [facility] Last Admin: 06/28/17 21:05 Dose: 40 mg Clonazepam (Klonopin) 0.5 mg PO BEDTIME [facility] Last Admin: 06/28/17 21:05 Dose: 0.5 mg Diltiazem HCl (Cardizem Cd) 120 mg PO DAILY [facility] Docusate Sodium (Colace) 100 mg PO BID [facility] Last Admin: 06/29/17 08:59 Dose: 100 mg Finasteride (Proscar) 5 mg PO DAILY [facility] Last Admin: 06/29/17 08:59 Dose: 5 mg Furosemide 20 mg/ Furosemide (40 mg) 60 mg PO DAILY [facility] Last Admin: 06/29/17 08:59 Dose: 60 mg Cefazolin Sodium/Dextrose 2 gm (/ Premix) 50 mls @ 100 mls/hr IV Q8HR [facility] Last Admin: 06/29/17 13:03 Dose: 100 mls/hr Magnesium Hydroxide (Milk Of Magnesia) 30 ml PO Q6H PRN PRN Reason: Constipation Metformin HCl (Glucophage) 500 mg PO DAILY [facility] Last Admin: 06/29/17 08:58 Dose: 500 mg Nitroglycerin (Nitrostat) 0.4 mg SL ASDIRECTED PRN PRN Reason: Chest Pain Ondansetron HCl (Zofran Odt) 4 mg PO Q6H PRN PRN Reason: Nausea/Vomiting Ondansetron HCl (Zofran) 4 mg IVPUSH Q6H PRN PRN Reason: Nausea/Vomiting Last Admin: 06/27/17 15:39 Dose: 4 mg Pantoprazole Sodium (Protonix) 40 mg PO BEDTIME [facility] Last Admin: 06/28/17 21:06 Dose: 40 mg Polyethylene Glycol (Miralax) 17 gm PO BID PRN PRN Reason: Constipation Pregabalin (Lyrica) 50 mg PO PCLUNCH [facility] Last Admin: 06/29/17 13:01 Dose: 50 mg Pregabalin (Lyrica) 100 mg PO BEDTIME [facility] Last Admin: 06/28/17 21:06 Dose: 100 mg Ropinirole HCl (Requip) 0.5 mg PO PCLUNCH [facility] Last Admin: 06/29/17 13:01 Dose: 0.5 mg Ropinirole HCl (Requip) 0.5 mg PO DAILY [facility] Last Admin: 06/29/17 08:58 Dose: 0.5 mg Ropinirole HCl (Requip) 1.5 mg PO BEDTIME [place] Last Admin: 06/28/17 21:06 Dose: 1.5 mg Senna/Docusate Sodium (Senna Plus) 1 tab PO BID PRN PRN Reason: Constipation Last Admin: 06/28/17 07:59 Dose: 1 tab Sumatriptan Succinate (Imitrex) 50 mg PO DAILY PRN PRN Reason: migraine Last Admin: 06/27/17 17:50 Dose: 50 mg Discontinued Medications Hydrocodone Bitart/Acetaminophen ([place] 325-10 Mg) 1 tab PO ONETIME ONE Stop: 06/25/17 21:48 Last Admin: 06/25/17 22:03 Dose: 1 tab Apixaban (Eliquis) 5 mg PO DAILY [facility] Last Admin: 06/26/17 08:45 Dose: 5 mg Aspirin (Halfprin) 81 mg PO DAILY [facility] Last Admin: 06/27/17 08:07 Dose: Not Given Diltiazem HCl (Cardizem Cd) 120 mg PO BID [facility] Last Admin: 06/29/17 11:24 Dose: Not Given Furosemide (Lasix) 40 mg IVPUSH NOW ONE Stop: 06/28/17 16:01 Last Admin: 06/28/17 18:30 Dose: Not Given Ceftriaxone Sodium 1 gm/ (Sodium Chloride) 50 mls @ 100 mls/hr IV ONETIME ONE Stop: 06/25/17 22:43 Last Admin: 06/25/17 22:36 Dose: 100 mls/hr Sodium Chloride (Normal Saline) 1,000 mls @ 250 mls/hr IV ASDIRECTED [facility] Last Admin: 06/25/17 22:25 Dose: 250 mls/hr Potassium Chloride/Sodium Chloride (Normal Saline With 20 Meq Kcl) 1,000 mls @ 75 mls/hr IV ASDIRECTED [facility] Last Admin: 06/27/17 19:19 Dose: 75 mls/hr Potassium Chloride 20 meq/Lidocaine HCl 2 ml/ Sodium Chloride 112 mls @ 56 mls/ hr IV Q2H [facility] Stop: 06/27/17 14:59 Last Admin: 06/27/17 13:24 Dose: 56 mls/hr Isosorbide Mononitrate (Imdur) 30 mg PO DAILY [facility] Last Admin: 06/27/17 10:36 Dose: Not Given Pantoprazole Sodium (Protonix) 80 mg PO ACBREAKFAST [facility] Last Admin: 06/27/17 07:09 Dose: Not Given Polyethylene Glycol (Miralax) 17 gm PO ONETIME ONE Stop: 06/28/17 14:01 Last Admin: 06/28/17 13:41 Dose: 17 gm Pregabalin (Lyrica) 50 mg PO ONETIME ONE Stop: 06/25/17 21:43 Last Admin: 06/25/17 22:03 Dose: 50 mg Pregabalin (Lyrica) 50 mg PO TID [facility] Last Admin: 06/26/17 13:54 Dose: Not Given Ropinirole HCl (Requip) 0.5 mg PO ONETIME ONE Stop: 06/26/17 21:55 Last Admin: 06/25/17 22:06 Dose: 0.5 mg Ropinirole HCl (Requip) Confirm Administered Dose 0.5 mg .ROUTE .STK-MED ONE Stop: 06/25/17 21:56 Last Admin: 06/25/17 21:58 Dose: Not Given Ropinirole HCl (Requip) 0.5 mg PO QPM [facility] Last Admin: 06/26/17 17:56 Dose: Not Given - Exam Quality Assessment: DVT Prophylaxis General: Alert, Oriented, Cooperative, Mild Distress Lungs: Clear to Auscultation, Normal Respiratory Effort Cardiovascular: Regular Rate, Regular Rhythm, No Murmurs GI/Abdominal Exam: Soft, Non-Tender, No Organomegaly, No Distention Extremities: Non-Tender, Pedal Edema, Other (Mild to moderate residual erythema and warmth in the area of cellulitis) - Problem List Review Problem List Initiated/Reviewed/Updated: Yes - My Orders Last 24 Hours: My Active Orders 06/30/17 09:00 Diltiazem [Cardizem CD] 120 mg PO DAILY - Plan Plan:: ASSESSMENT AND PLAN - Right lower leg cellulitis - recent ankle sprain secondary to syncope preceded onset of cellulitis. Good improvement in edema over the last 24 hours there is mild residual erythema and increased warmth -Saline lock IV -Furosemide 60 mg by mouth daily -Continue cefazolin -Pain control Chronic atrial fibrillation - recent difficulties with syncope and during the hospital we have noted hypotension. -Diltiazem CD 120 mg by mouth daily -Continue systemic anticoagulation Coronary artery disease - history of previous myocardial infarction. No active symptoms of ischemia. Management complicated by hypotension. -Hold long acting nitrate Type 2 diabetes mellitus - well controlled at this time. Complicated by neuropathy. -Continue home medications Maintenance issues - - DVT prophylaxis - apixiban - GI prophylaxis - PPI - Nutrition - diabetic diet Disposition - anticipate discharge to home after the hospital stay
[2017-06-29] MEDS: Aspirin 81 MG Tab.EC PO SCH (21:40)
[2017-06-29] MEDS: Pantoprazole 40 MG Tab.CR PO SCH (21:42)
[2017-06-29] MEDS: atorvaSTATin 20 MG Tab PO SCH (21:44)
[2017-06-29] MEDS: Pregabalin 100 MG Cap PO SCH (21:46)
[2017-06-29] MEDS: ClonazePAM 0.5 MG Tab PO SCH (21:47)
[2017-06-29] MEDS: SUMAtriptan 50 MG Tab PO PRN (23:50)
[2017-06-30] MEDS: ceFAZolin 2 GM in Premix Bag 1 BAG IV SCH ×3 (05:58→21:11)
[2017-06-30] MEDS ORDERED: Diltiazem 120 MG Cap.CD PO SCH ×3 (07:30→21:00)
[2017-06-30] MEDS ORDERED: Digoxin 500 MCG/2 ML Amp IVPUSH ONE (08:30)
--- NOTE | 2017-06-30 08:30 | PCM.PN ---
- General Info Date of Service: 06/30/17 Subjective Update: This patient unfortunately developed atrial fibrillation with rapid ventricular response this morning, associated with hypotension and systolic pressure in the range of 90. He is had a previous history of this, during hospitalization is been noted to have significant bradycardia as well as hypotension in the mornings. His dose of diltiazem CD had been decreased to 120 mg daily instead of 120 mg twice daily. Present time he feels mildly lightheaded but denies any symptoms of chest pain or pressure or shortness of breath. EKG was obtained and confirms atrial fibrillation with rapid ventricular response. Functional Status: Reports: Tolerating Diet, Urinating - Review of Systems General: Reports: Weakness. Denies: Fever, Chills Pulmonary: Reports: No Symptoms Cardiovascular: Reports: Palpitations, Edema. Denies: Chest Pain, Orthopnea, PND, Lightheadedness Gastrointestinal: Reports: No Symptoms Skin: Reports: Other (Cellulitis right lower extremity almost totally resolved) - Patient Data Vitals - Most Recent: Last Vital Signs Temp 98 F 06/30/17 07:14 Pulse 141 H 06/30/17 08:06 Resp 16 06/30/17 07:14 BP 90/64 06/30/17 07:26 Pulse Ox 97 06/30/17 07:14 Weight - Most Recent: 231 lb 0.006 oz I&O - Last 24 Hours: Intake & Output 06/29/17 06/30/17 06/30/17 22:59 06:59 14:59 Intake Total 800 480 Output Total 800 800 350 Balance 0 -320 -350 Lab Results Last 24 Hours: Laboratory Results - last 24 hr 06/30/17 Range/Units 07:44 Sodium 139 L (140-148) mmol/L Potassium 3.9 (3.6-5.2) mmol/L Chloride 102 (100-108) mmol/L Carbon Dioxide 29 (21-32) mmol/L Anion Gap 11.9 (5.0-14.0) mmol/L BUN 17 (7-18) mg/dL Creatinine 1.1 (0.8-1.3) mg/dL Est Cr Clr Drug Dosing 55.87 mL/min Estimated GFR (MDRD) > 60 (>60) Glucose 109 H (74-106) mg/dL Calcium 8.5 (8.5-10.1) mg/dL Magnesium 2.3 (1.8-2.4) mg/dL Med Orders - Current: Current Medications Acetaminophen (Tylenol) 650 mg PO Q6H PRN PRN Reason: FEVER/PAIN Hydrocodone Bitart/Acetaminophen ([place] 325-10 Mg) 1 tab PO Q6H PRN PRN Reason: Pain Last Admin: 06/29/17 15:50 Dose: 1 tab Albuterol (Ventolin Hfa) 0 gm INH Q6H PRN PRN Reason: Wheezing Last Admin: 06/26/17 09:09 Dose: 2 puff Apixaban (Eliquis) 5 mg PO BID [facility] Last Admin: 06/29/17 21:40 Dose: 5 mg Aspirin (Halfprin) 81 mg PO BEDTIME [place] Last Admin: 06/29/17 21:40 Dose: 81 mg Atorvastatin Calcium (Lipitor) 40 mg PO BEDTIME [facility] Last Admin: 06/29/17 21:44 Dose: 40 mg Clonazepam (Klonopin) 0.5 mg PO BEDTIME [facility] Last Admin: 06/29/17 21:47 Dose: 0.5 mg Digoxin (Lanoxin) 250 mcg IVPUSH ONETIME ONE Stop: 06/30/17 08:31 Last Admin: 06/30/17 08:06 Dose: 250 mcg Docusate Sodium (Colace) 100 mg PO BID [facility] Last Admin: 06/29/17 21:40 Dose: 100 mg Finasteride (Proscar) 5 mg PO DAILY [facility] Last Admin: 06/29/17 08:59 Dose: 5 mg Furosemide 20 mg/ Furosemide (40 mg) 60 mg PO DAILY [facility] Last Admin: 06/29/17 08:59 Dose: 60 mg Cefazolin Sodium/Dextrose 2 gm (/ Premix) 50 mls @ 100 mls/hr IV Q8HR [facility] Last Admin: 06/30/17 05:58 Dose: 100 mls/hr Magnesium Hydroxide (Milk Of Magnesia) 30 ml PO Q6H PRN PRN Reason: Constipation Metformin HCl (Glucophage) 500 mg PO DAILY [facility] Last Admin: 06/29/17 08:58 Dose: 500 mg Nitroglycerin (Nitrostat) 0.4 mg SL ASDIRECTED PRN PRN Reason: Chest Pain Ondansetron HCl (Zofran Odt) 4 mg PO Q6H PRN PRN Reason: Nausea/Vomiting Ondansetron HCl (Zofran) 4 mg IVPUSH Q6H PRN PRN Reason: Nausea/Vomiting Last Admin: 06/27/17 15:39 Dose: 4 mg Pantoprazole Sodium (Protonix) 40 mg PO BEDTIME [facility] Last Admin: 06/29/17 21:42 Dose: 40 mg Polyethylene Glycol (Miralax) 17 gm PO BID PRN PRN Reason: Constipation Pregabalin (Lyrica) 50 mg PO PCLUNCH [facility] Last Admin: 06/29/17 13:01 Dose: 50 mg Pregabalin (Lyrica) 100 mg PO BEDTIME [facility] Last Admin: 06/29/17 21:46 Dose: 100 mg Ropinirole HCl (Requip) 0.5 mg PO PCLUNCH [facility] Last Admin: 06/29/17 13:01 Dose: 0.5 mg Ropinirole HCl (Requip) 0.5 mg PO DAILY [facility] Last Admin: 06/29/17 08:58 Dose: 0.5 mg Ropinirole HCl (Requip) 1.5 mg PO BEDTIME [facility] Last Admin: 06/29/17 21:42 Dose: 1.5 mg Senna/Docusate Sodium (Senna Plus) 1 tab PO BID PRN PRN Reason: Constipation Last Admin: 06/28/17 07:59 Dose: 1 tab Sumatriptan Succinate (Imitrex) 50 mg PO DAILY PRN PRN Reason: migraine Last Admin: 06/29/17 23:50 Dose: 50 mg Discontinued Medications Hydrocodone Bitart/Acetaminophen ([place] 325-10 Mg) 1 tab PO ONETIME ONE Stop: 06/25/17 21:48 Last Admin: 06/25/17 22:03 Dose: 1 tab Apixaban (Eliquis) 5 mg PO DAILY [facility] Last Admin: 06/26/17 08:45 Dose: 5 mg Aspirin (Halfprin) 81 mg PO DAILY [facility] Last Admin: 06/27/17 08:07 Dose: Not Given Diltiazem HCl (Cardizem Cd) 120 mg PO BID [facility] Last Admin: 06/29/17 11:24 Dose: Not Given Diltiazem HCl (Cardizem Cd) 120 mg PO DAILY [facility] Diltiazem HCl (Cardizem Cd) 120 mg PO DAILY [facility] Last Admin: 06/30/17 07:26 Dose: 120 mg Furosemide (Lasix) 40 mg IVPUSH NOW ONE Stop: 06/28/17 16:01 Last Admin: 06/28/17 18:30 Dose: Not Given Ceftriaxone Sodium 1 gm/ (Sodium Chloride) 50 mls @ 100 mls/hr IV ONETIME ONE Stop: 06/25/17 22:43 Last Admin: 06/25/17 22:36 Dose: 100 mls/hr Sodium Chloride (Normal Saline) 1,000 mls @ 250 mls/hr IV ASDIRECTED [facility] Last Admin: 06/25/17 22:25 Dose: 250 mls/hr Potassium Chloride/Sodium Chloride (Normal Saline With 20 Meq Kcl) 1,000 mls @ 75 mls/hr IV ASDIRECTED [facility] Last Admin: 06/27/17 19:19 Dose: 75 mls/hr Potassium Chloride 20 meq/Lidocaine HCl 2 ml/ Sodium Chloride 112 mls @ 56 mls/ hr IV Q2H [place] Stop: 06/27/17 14:59 Last Admin: 06/27/17 13:24 Dose: 56 mls/hr Isosorbide Mononitrate (Imdur) 30 mg PO DAILY [facility] Last Admin: 06/27/17 10:36 Dose: Not Given Pantoprazole Sodium (Protonix) 80 mg PO ACBREAKFAST [facility] Last Admin: 06/27/17 07:09 Dose: Not Given Polyethylene Glycol (Miralax) 17 gm PO ONETIME ONE Stop: 06/28/17 14:01 Last Admin: 06/28/17 13:41 Dose: 17 gm Pregabalin (Lyrica) 50 mg PO ONETIME ONE Stop: 06/25/17 21:43 Last Admin: 06/25/17 22:03 Dose: 50 mg Pregabalin (Lyrica) 50 mg PO TID [facility] Last Admin: 06/26/17 13:54 Dose: Not Given Ropinirole HCl (Requip) 0.5 mg PO ONETIME ONE Stop: 06/26/17 21:55 Last Admin: 06/25/17 22:06 Dose: 0.5 mg Ropinirole HCl (Requip) Confirm Administered Dose 0.5 mg .ROUTE .STK-MED ONE Stop: 06/25/17 21:56 Last Admin: 06/25/17 21:58 Dose: Not Given Ropinirole HCl (Requip) 0.5 mg PO QPM [facility] Last Admin: 06/26/17 17:56 Dose: Not Given - Exam Quality Assessment: DVT Prophylaxis General: Alert, Oriented, Cooperative, Mild Distress Lungs: Clear to Auscultation, Normal Respiratory Effort Cardiovascular: No Murmurs, Irregular Rhythm, Tachycardia GI/Abdominal Exam: Soft, Non-Tender, No Organomegaly, Abnormal Bowel Sounds Extremities: Other (Edema much improved mild residual erythema and increase in) - Problem List Review Problem List Initiated/Reviewed/Updated: Yes - My Orders Last 24 Hours: My Active Orders 06/30/17 07:23 EKG 12 Lead [EK] Routine 06/30/17 07:24 EKG Documentation Completion [RC] ASDIRECTED 06/30/17 08:30 Digoxin [Lanoxin] 250 mcg IVPUSH ONETIME ONE 06/30/17 21:00 Diltiazem [Cardizem CD] 120 mg PO BID 07/01/17 05:00 BASIC METABOLIC PANEL,BMP [CHEM] Timed DIGOXIN [CHEM] Timed MAGNESIUM [CHEM] Timed - Plan Plan:: ASSESSMENT AND PLAN - Right lower leg cellulitis - recent ankle sprain secondary to syncope preceded onset of cellulitis. Edema has almost totally resolved, mild residual erythema and increased warmth -Saline lock IV -Furosemide 60 mg by mouth daily -Continue cefazolin -Pain control Chronic atrial fibrillation - developed rapid heart rate this morning associated with the underlying atrial fibrillation -Digoxin 0.25 mg IV now Increase diltiazem CD back to 120 mg twice daily -Continue systemic anticoagulation Coronary artery disease - history of previous myocardial infarction. No active symptoms of ischemia. Management complicated by hypotension. -Hold long acting nitrate Type 2 diabetes mellitus - well controlled at this time. Complicated by neuropathy. -Continue home medications Maintenance issues - - DVT prophylaxis - apixiban - GI prophylaxis - PPI - Nutrition - diabetic diet Disposition - anticipate discharge to home after the hospital stay
[2017-06-30] MEDS: Docusate Sodium 100 MG Cap PO SCH ×2 (09:21→21:12)
[2017-06-30] MEDS: metFORMIN 500 MG Tab PO SCH (09:43)
[2017-06-30] MEDS: Apixaban 5 MG Tab PO SCH ×2 (09:43→21:14)
[2017-06-30] MEDS: Finasteride 5 MG Tab PO SCH (09:43)
[2017-06-30] MEDS: rOPINIRole 0.5 MG Tab PO SCH ×3 (09:43→21:15)
[2017-06-30] MEDS: Pregabalin 50 MG Cap PO SCH (13:03)
[2017-06-30] MEDS ORDERED: Digoxin 125 MCG Tab PO SCH (21:00)
[2017-06-30] MEDS: SUMAtriptan 50 MG Tab PO PRN (21:11)
[2017-06-30] MEDS: ClonazePAM 0.5 MG Tab PO SCH (21:12)
[2017-06-30] MEDS: Acetaminophen/HYDROcodone 325-10 MG Tab PO PRN (21:12)
[2017-06-30] MEDS: Aspirin 81 MG Tab.EC PO SCH (21:14)
[2017-06-30] MEDS: Pantoprazole 40 MG Tab.CR PO SCH (21:15)
[2017-06-30] MEDS: atorvaSTATin 20 MG Tab PO SCH (21:15)
[2017-06-30] MEDS: Pregabalin 100 MG Cap PO SCH (21:19)
[2017-07-01] MEDS: ceFAZolin 2 GM in Premix Bag 1 BAG IV SCH ×3 (06:00→21:43)
[2017-07-01] MEDS: Diltiazem 120 MG Cap.CD PO SCH ×3 (07:16→21:26)
[2017-07-01] MEDS ORDERED: Digoxin 500 MCG/2 ML Amp IVPUSH ONE (08:00)
[2017-07-01] MEDS: Docusate Sodium 100 MG Cap PO SCH ×3 (09:02→21:27)
[2017-07-01] MEDS: Apixaban 5 MG Tab PO SCH ×2 (09:02→21:27)
[2017-07-01] MEDS: metFORMIN 500 MG Tab PO SCH (09:02)
[2017-07-01] MEDS: Finasteride 5 MG Tab PO SCH (09:03)
[2017-07-01] MEDS: Isosorbide Mononitrate 30 MG Tab.ER PO SCH (09:03)
[2017-07-01] MEDS: rOPINIRole 0.5 MG Tab PO SCH ×3 (09:04→21:43)
[2017-07-01] MEDS ORDERED: Acetaminophen 325 MG Tab PO PRN (09:27)
[2017-07-01] MEDS: Pregabalin 50 MG Cap PO SCH (12:40)
[2017-07-01] MEDS: Acetaminophen/HYDROcodone 325-10 MG Tab PO PRN ×2 (15:04→23:55)
[2017-07-01] MEDS ORDERED: Diltiazem 120 MG Cap.CD PO SCH (16:30)
--- NOTE | 2017-07-01 16:33 | PCM.PN ---
- General Info Date of Service: 07/01/17 Subjective Update: This patient experienced a recurrent episode of atrial fibrillation with rapid ventricular response again this morning. He received a next her dose of IV digoxin and since has converted back to sinus rhythm with normal rate. Tolerates the episodes of atrial fibrillation well denied significant associated symptoms. Functional Status: Reports: Tolerating Diet, Ambulating, Urinating - Review of Systems General: Denies: Fever, Chills Pulmonary: Reports: No Symptoms Cardiovascular: Reports: Palpitations. Denies: Chest Pain, Dyspnea on Exertion , Orthopnea, PND, Edema, Lightheadedness Gastrointestinal: Reports: No Symptoms - Patient Data Vitals - Most Recent: Last Vital Signs Temp 96.5 F 07/01/17 12:12 Pulse 76 07/01/17 12:12 Resp 16 07/01/17 12:12 BP 113/58 L 07/01/17 12:12 Pulse Ox 98 07/01/17 12:12 Weight - Most Recent: 231 lb 0.006 oz I&O - Last 24 Hours: Intake & Output 07/01/17 07/01/17 07/01/17 06:59 14:59 22:59 Intake Total 960 Output Total 400 Balance 560 Lab Results Last 24 Hours: Laboratory Results - last 24 hr 07/01/17 Range/Units 05:00 Sodium 139 L (140-148) mmol/L Potassium 4.0 (3.6-5.2) mmol/L Chloride 102 (100-108) mmol/L Carbon Dioxide 30 (21-32) mmol/L Anion Gap 11.0 (5.0-14.0) mmol/L BUN 19 H (7-18) mg/dL Creatinine 1.1 (0.8-1.3) mg/dL Est Cr Clr Drug Dosing 55.87 mL/min Estimated GFR (MDRD) > 60 (>60) Glucose 95 (74-106) mg/dL Calcium 8.6 (8.5-10.1) mg/dL Magnesium 2.3 (1.8-2.4) mg/dL Digoxin 0.86 L (0.90-2.00) ng/mL Med Orders - Current: Current Medications Acetaminophen (Tylenol) 650 mg PO Q6H PRN PRN Reason: PAIN/FEVER Hydrocodone Bitart/Acetaminophen ([place] 325-10 Mg) 1 tab PO Q6H PRN PRN Reason: Pain Last Admin: 07/01/17 15:04 Dose: 1 tab Albuterol (Ventolin Hfa) 0 gm INH Q6H PRN PRN Reason: Wheezing Last Admin: 06/26/17 09:09 Dose: 2 puff Apixaban (Eliquis) 5 mg PO BID [facility] Last Admin: 07/01/17 09:02 Dose: 5 mg Aspirin (Halfprin) 81 mg PO BEDTIME [facility] Last Admin: 06/30/17 21:14 Dose: 81 mg Atorvastatin Calcium (Lipitor) 40 mg PO BEDTIME [place] Last Admin: 06/30/17 21:15 Dose: 40 mg Clonazepam (Klonopin) 0.5 mg PO BEDTIME [facility] Last Admin: 06/30/17 21:12 Dose: 0.5 mg Diltiazem HCl (Cardizem Cd) 120 mg PO Q12H [facility] Docusate Sodium (Colace) 100 mg PO BID [facility] Last Admin: 07/01/17 09:11 Dose: Not Given Finasteride (Proscar) 5 mg PO DAILY [facility] Last Admin: 07/01/17 09:03 Dose: 5 mg Furosemide 20 mg/ Furosemide (40 mg) 60 mg PO DAILY [facility] Last Admin: 07/01/17 09:02 Dose: 60 mg Cefazolin Sodium/Dextrose 2 gm (/ Premix) 50 mls @ 100 mls/hr IV Q8HR [facility] Last Admin: 07/01/17 14:14 Dose: 100 mls/hr Isosorbide Mononitrate (Imdur) 30 mg PO DAILY [facility] Last Admin: 07/01/17 09:03 Dose: 30 mg Magnesium Hydroxide (Milk Of Magnesia) 30 ml PO Q6H PRN PRN Reason: Constipation Metformin HCl (Glucophage) 500 mg PO DAILY [facility] Last Admin: 07/01/17 09:02 Dose: 500 mg Nitroglycerin (Nitrostat) 0.4 mg SL ASDIRECTED PRN PRN Reason: Chest Pain Ondansetron HCl (Zofran Odt) 4 mg PO Q6H PRN PRN Reason: Nausea/Vomiting Ondansetron HCl (Zofran) 4 mg IVPUSH Q6H PRN PRN Reason: Nausea/Vomiting Last Admin: 06/27/17 15:39 Dose: 4 mg Pantoprazole Sodium (Protonix) 40 mg PO BEDTIME [facility] Last Admin: 06/30/17 21:15 Dose: 40 mg Polyethylene Glycol (Miralax) 17 gm PO BID PRN PRN Reason: Constipation Pregabalin (Lyrica) 50 mg PO PCLUNCH [facility] Last Admin: 07/01/17 12:40 Dose: 50 mg Pregabalin (Lyrica) 100 mg PO BEDTIME [facility] Last Admin: 06/30/17 21:19 Dose: 100 mg Ropinirole HCl (Requip) 0.5 mg PO PCLUNCH [facility] Last Admin: 07/01/17 12:41 Dose: 0.5 mg Ropinirole HCl (Requip) 0.5 mg PO DAILY [facility] Last Admin: 07/01/17 09:04 Dose: 0.5 mg Ropinirole HCl (Requip) 1.5 mg PO BEDTIME [facility] Last Admin: 06/30/17 21:15 Dose: 1.5 mg Senna/Docusate Sodium (Senna Plus) 1 tab PO BID PRN PRN Reason: Constipation Last Admin: 06/28/17 07:59 Dose: 1 tab Sumatriptan Succinate (Imitrex) 50 mg PO DAILY PRN PRN Reason: migraine Last Admin: 06/30/17 21:11 Dose: 50 mg Discontinued Medications Acetaminophen (Tylenol) 650 mg PO Q6H PRN PRN Reason: FEVER/PAIN Hydrocodone Bitart/Acetaminophen ([place] 325-10 Mg) 1 tab PO ONETIME ONE Stop: 06/25/17 21:48 Last Admin: 06/25/17 22:03 Dose: 1 tab Apixaban (Eliquis) 5 mg PO DAILY [facility] Last Admin: 06/26/17 08:45 Dose: 5 mg Aspirin (Halfprin) 81 mg PO DAILY [facility] Last Admin: 06/27/17 08:07 Dose: Not Given Digoxin (Lanoxin) 250 mcg IVPUSH ONETIME ONE Stop: 06/30/17 08:31 Last Admin: 06/30/17 08:06 Dose: 250 mcg Digoxin (Lanoxin) 250 mcg PO BEDTIME [facility] Last Admin: 06/30/17 21:13 Dose: 250 mcg Digoxin (Lanoxin) 250 mcg IVPUSH ONETIME ONE Stop: 07/01/17 08:01 Last Admin: 07/01/17 07:36 Dose: 250 mcg Diltiazem HCl (Cardizem Cd) 120 mg PO BID [facility] Last Admin: 06/29/17 11:24 Dose: Not Given Diltiazem HCl (Cardizem Cd) 120 mg PO DAILY [facility] Diltiazem HCl (Cardizem Cd) 120 mg PO DAILY [facility] Last Admin: 06/30/17 07:26 Dose: 120 mg Diltiazem HCl (Cardizem Cd) 120 mg PO BID [facility] Diltiazem HCl (Cardizem Cd) 120 mg PO DAILY [facility] Last Admin: 07/01/17 09:05 Dose: Not Given Diltiazem HCl (Cardizem Cd) 120 mg PO Q12H [facility] Furosemide (Lasix) 40 mg IVPUSH NOW ONE Stop: 06/28/17 16:01 Last Admin: 06/28/17 18:30 Dose: Not Given Ceftriaxone Sodium 1 gm/ (Sodium Chloride) 50 mls @ 100 mls/hr IV ONETIME ONE Stop: 06/25/17 22:43 Last Admin: 06/25/17 22:36 Dose: 100 mls/hr Sodium Chloride (Normal Saline) 1,000 mls @ 250 mls/hr IV ASDIRECTED [facility] Last Admin: 06/25/17 22:25 Dose: 250 mls/hr Potassium Chloride/Sodium Chloride (Normal Saline With 20 Meq Kcl) 1,000 mls @ 75 mls/hr IV ASDIRECTED [facility] Last Admin: 06/27/17 19:19 Dose: 75 mls/hr Potassium Chloride 20 meq/Lidocaine HCl 2 ml/ Sodium Chloride 112 mls @ 56 mls/ hr IV Q2H [place] Stop: 06/27/17 14:59 Last Admin: 06/27/17 13:24 Dose: 56 mls/hr Isosorbide Mononitrate (Imdur) 30 mg PO DAILY [facility] Last Admin: 06/27/17 10:36 Dose: Not Given Pantoprazole Sodium (Protonix) 80 mg PO ACBREAKFAST [facility] Last Admin: 06/27/17 07:09 Dose: Not Given Polyethylene Glycol (Miralax) 17 gm PO ONETIME ONE Stop: 06/28/17 14:01 Last Admin: 06/28/17 13:41 Dose: 17 gm Pregabalin (Lyrica) 50 mg PO ONETIME ONE Stop: 06/25/17 21:43 Last Admin: 06/25/17 22:03 Dose: 50 mg Pregabalin (Lyrica) 50 mg PO TID [facility] Last Admin: 06/26/17 13:54 Dose: Not Given Ropinirole HCl (Requip) 0.5 mg PO ONETIME ONE Stop: 06/26/17 21:55 Last Admin: 06/25/17 22:06 Dose: 0.5 mg Ropinirole HCl (Requip) Confirm Administered Dose 0.5 mg .ROUTE .STK-MED ONE Stop: 06/25/17 21:56 Last Admin: 06/25/17 21:58 Dose: Not Given Ropinirole HCl (Requip) 0.5 mg PO QPM [facility] Last Admin: 06/26/17 17:56 Dose: Not Given - Exam Quality Assessment: DVT Prophylaxis General: Alert, Oriented, Cooperative, No Acute Distress Lungs: Clear to Auscultation, Normal Respiratory Effort Cardiovascular: Regular Rate, Regular Rhythm, No Murmurs GI/Abdominal Exam: Soft, Non-Tender, No Organomegaly, No Distention Extremities: Non-Tender, No Pedal Edema Skin: Warm, Dry - Problem List Review Problem List Initiated/Reviewed/Updated: Yes - My Orders Last 24 Hours: My Active Orders 07/01/17 09:00 Isosorbide Mononitrate [Imdur] 30 mg PO DAILY 07/01/17 21:00 Diltiazem [Cardizem CD] 120 mg PO Q12H - Plan Plan:: ASSESSMENT AND PLAN - Right lower leg cellulitis - essentially resolved -Saline lock IV -Furosemide 60 mg by mouth daily -Continue cefazolin -Pain control Chronic atrial fibrillation - recurrent episode again today with rapid ventricular response -Increase diltiazem CD back to 120 mg twice daily -Continue systemic anticoagulation Coronary artery disease - history of previous myocardial infarction. No active symptoms of ischemia. Management complicated by hypotension. -Imdur 30 mg by mouth daily Type 2 diabetes mellitus - well controlled at this time. Complicated by neuropathy. -Continue home medications Maintenance issues - - DVT prophylaxis - apixiban - GI prophylaxis - PPI - Nutrition - diabetic diet Disposition - anticipate discharge to home after the hospital stay
[2017-07-01] MEDS: SUMAtriptan 50 MG Tab PO PRN ×2 (17:31→21:28)
[2017-07-01] MEDS: Aspirin 81 MG Tab.EC PO SCH (21:27)
[2017-07-01] MEDS: atorvaSTATin 20 MG Tab PO SCH (21:27)
[2017-07-01] MEDS: ClonazePAM 0.5 MG Tab PO SCH (21:27)
[2017-07-01] MEDS: Pantoprazole 40 MG Tab.CR PO SCH (21:28)
[2017-07-01] MEDS: Pregabalin 100 MG Cap PO SCH (21:32)
[2017-07-02] MEDS: ceFAZolin 2 GM in Premix Bag 1 BAG IV SCH ×2 (05:02→13:25)
[2017-07-02] MEDS: Acetaminophen/HYDROcodone 325-10 MG Tab PO PRN ×2 (06:00→12:37)
[2017-07-02] MEDS: Diltiazem 120 MG Cap.CD PO SCH (09:30)
[2017-07-02] MEDS: Docusate Sodium 100 MG Cap PO SCH (09:39)
[2017-07-02] MEDS: Isosorbide Mononitrate 30 MG Tab.ER PO SCH (09:40)
[2017-07-02] MEDS: rOPINIRole 0.5 MG Tab PO SCH ×2 (09:41→12:18)
[2017-07-02] MEDS: metFORMIN 500 MG Tab PO SCH (09:41)
[2017-07-02] MEDS: Apixaban 5 MG Tab PO SCH (09:42)
[2017-07-02] MEDS: Finasteride 5 MG Tab PO SCH (09:44)
[2017-07-02] MEDS: Pregabalin 50 MG Cap PO SCH (12:28)
[2017-07-02 14:17] VITALS: BP 111/54
--- NOTE | 2017-07-02 14:22 | PCM.DCSUM1 ---
Discharge Summary - Hospital Course Brief History: This patient is an 82-year-old gentleman who was admitted through the emergency department for further management of cellulitis of the left lower extremity. - Discharge Data Discharge Date: 07/02/17 Discharge Disposition: Home, Self-Care 01 Condition: Stable - Discharge Diagnosis/Problem(s) (1) Atrial fibrillation with rapid ventricular response SNOMED Code(s): 519290768517221 ICD Code: I48.91 - UNSPECIFIED ATRIAL FIBRILLATION Status: Acute Current Visit: Yes (2) Cellulitis of leg, right SNOMED Code(s): 385077978 ICD Code: L03.115 - CELLULITIS OF RIGHT LOWER LIMB Status: Acute Current Visit: Yes (3) Type 2 diabetes mellitus SNOMED Code(s): 04236846 ICD Code: E11.9 - TYPE 2 DIABETES MELLITUS WITHOUT COMPLICATIONS Status: Chronic Current Visit: No - Patient Summary/Data Hospital Course: Mr. Walls is an 82-year-old gentleman who was admitted through the emergency department for management of cellulitis of his left lower leg. He had experienced a syncopal episode approximately 5 days prior to this admission, at that time injured his left lower leg and ankle. 48 hours prior to admission he noted some erythema with increase in pain in the left lower leg. These symptoms became progressively worse so he presented to the emergency department for further evaluation. On evaluation in the emergency department was felt to have cellulitis of his left lower leg, white blood cell count was normal and there was no evidence of sepsis. He was admitted to the hospital and given IV fluids for hydration as well as antibiotic therapy with cefazolin. Blood cultures were obtained and returned negative. He did have significant swelling of the leg and after the first few days of hospitalization was given diuretic therapy which resulted in good diuresis and further improvement of the cellulitis. Hospital course was complicated by episodes of atrial fibrillation with rapid ventricular response, at the time of discharge he was stable with no episode of atrial fibrillation for 24 hours. He is already treated with anticoagulation and will be continued on his usual dose of diltiazem. He will complete a course of antibiotic therapy with 3 additional days of oral antibiotic in the form of cephalexin 500 mg 3 times daily. Activity will be as tolerated and he will resume his usual diet. Blood glucose levels were monitored throughout hospitalization because of his history of diabetes and levels remained well controlled for the most part. Follow-up appointment will be scheduled with his primary care provider within one week. - Patient Instructions Diet: Low Sodium Activity: As Tolerated Other/Special Instructions: Please schedule follow-up appointment with Dr. Alfonso within one week - Discharge Plan Prescriptions/Med Rec: Cephalexin 500 mg PO Q8H #9 capsule Home Medications: Home Meds Aspirin [Low Dose Aspirin EC] 81 mg PO DAILY 11/14/13 [History] Calcium Carb/Vit D3/Minerals [Hm Calcium 600 mg-Vit D Tab] 1 tab PO BID [History] Cholecalciferol (Vitamin D3) [D3-2000] 2,000 unit PO DAILY 11/14/13 [History] ClonazePAM [KlonoPIN] 0.5 mg PO BEDTIME 11/14/13 [History] Cyanocobalamin (Vitamin B-12) [Vitamin B-12] 1,000 mcg PO DAILY 11/14/13 [ History] Diphenoxylate HCl/Atropine [Diphenoxylate-Atrop 2.5-0.025] 1 each PO ASDIRECTED PRN 11/14/13 [History] Multivitamin [Multi-Vitamin Daily] 1 tab PO DAILY 11/14/13 [History] [place]-3 Fatty Acids [[place]-3] 1,000 mg PO BID 11/14/13 [History] Pantoprazole Sodium 80 mg PO DAILY 11/14/13 [History] SUMAtriptan Succinate [Imitrex] 50 mg PO ASDIRECTED PRN 11/14/13 [History] atorvaSTATin [Lipitor] 40 mg PO BEDTIME 11/14/13 [History] Albuterol Sulfate [Proair Hfa] 2 puff INH Q6H PRN 01/14/16 [History] Finasteride [Proscar] 5 mg PO DAILY 01/14/16 [History] Furosemide [Lasix] 60 mg PO DAILY 01/14/16 [History] Nitroglycerin 0.4 mg SL ASDIRECTED PRN 01/14/16 [History] Pregabalin [Lyrica] 50 mg PO TID 01/14/16 [History] metFORMIN [Glucophage] 500 mg PO DAILY 01/14/16 [History] rOPINIRole [Requip] 0.5 mg PO QPM 01/14/16 [History] Ferrous Gluconate 324 mg PO BID 08/28/16 [History] Lidocaine 2% [Xylocaine 2% Jelly] 1 applic TOP ASDIRECTED 08/28/16 [History] Apixaban [Eliquis] 5 mg PO BID 06/19/17 [History] Diltiazem [Dilacor XR] 1 tab PO BID 06/19/17 [History] Cephalexin 500 mg PO Q8H #9 capsule 07/02/17 [Rx] Isosorbide Mononitrate [Isosorbide Mononitrate ER] 1 tab PO DAILY #0 07/02/17 [ Rx] Referrals: Adam Alfonso MD [Primary Care Provider] - - Discharge Summary/Plan Comment DC Time >30 min.: No - Patient Data Vitals - Most Recent: Last Vital Signs Temp 96.4 F 07/02/17 14:15 Pulse 61 07/02/17 14:15 Resp 16 07/02/17 14:15 BP 111/54 L 07/02/17 14:15 Pulse Ox 98 07/02/17 14:15 Weight - Most Recent: 231 lb 0.006 oz I&O - Last 24 hours: Intake & Output 07/01/17 07/02/17 07/02/17 22:59 06:59 14:59 Intake Total 550 Output Total 200 800 Balance -200 -250 Med Orders - Current: Current Medications Acetaminophen (Tylenol) 650 mg PO Q6H PRN PRN Reason: PAIN/FEVER Hydrocodone Bitart/Acetaminophen ([place] 325-10 Mg) 1 tab PO Q6H PRN PRN Reason: Pain Last Admin: 07/02/17 12:37 Dose: 1 tab Albuterol (Ventolin Hfa) 0 gm INH Q6H PRN PRN Reason: Wheezing Last Admin: 06/26/17 09:09 Dose: 2 puff Apixaban (Eliquis) 5 mg PO BID [place] Last Admin: 07/02/17 09:42 Dose: 5 mg Aspirin (Halfprin) 81 mg PO BEDTIME [place] Last Admin: 07/01/17 21:27 Dose: 81 mg Atorvastatin Calcium (Lipitor) 40 mg PO BEDTIME [place] Last Admin: 07/01/17 21:27 Dose: 40 mg Clonazepam (Klonopin) 0.5 mg PO BEDTIME [place] Last Admin: 07/01/17 21:27 Dose: 0.5 mg Diltiazem HCl (Cardizem Cd) 120 mg PO Q12H [facility] Last Admin: 07/02/17 09:30 Dose: 120 mg Docusate Sodium (Colace) 100 mg PO BID [facility] Last Admin: 07/02/17 09:39 Dose: Not Given Finasteride (Proscar) 5 mg PO DAILY [facility] Last Admin: 07/02/17 09:44 Dose: 5 mg Furosemide 20 mg/ Furosemide (40 mg) 60 mg PO DAILY [facility] Last Admin: 07/02/17 09:43 Dose: 60 mg Cefazolin Sodium/Dextrose 2 gm (/ Premix) 50 mls @ 100 mls/hr IV Q8HR [facility] Last Admin: 07/02/17 13:25 Dose: 100 mls/hr Isosorbide Mononitrate (Imdur) 30 mg PO DAILY [facility] Last Admin: 07/02/17 09:40 Dose: 30 mg Magnesium Hydroxide (Milk Of Magnesia) 30 ml PO Q6H PRN PRN Reason: Constipation Metformin HCl (Glucophage) 500 mg PO DAILY [facility] Last Admin: 07/02/17 09:41 Dose: 500 mg Nitroglycerin (Nitrostat) 0.4 mg SL ASDIRECTED PRN PRN Reason: Chest Pain Ondansetron HCl (Zofran Odt) 4 mg PO Q6H PRN PRN Reason: Nausea/Vomiting Ondansetron HCl (Zofran) 4 mg IVPUSH Q6H PRN PRN Reason: Nausea/Vomiting Last Admin: 06/27/17 15:39 Dose: 4 mg Pantoprazole Sodium (Protonix) 40 mg PO BEDTIME [facility] Last Admin: 07/01/17 21:28 Dose: 40 mg Polyethylene Glycol (Miralax) 17 gm PO BID PRN PRN Reason: Constipation Pregabalin (Lyrica) 50 mg PO PCLUNCH [facility] Last Admin: 07/02/17 12:28 Dose: 50 mg Pregabalin (Lyrica) 100 mg PO BEDTIME [facility] Last Admin: 07/01/17 21:32 Dose: 100 mg Ropinirole HCl (Requip) 0.5 mg PO PCLUNCH [facility] Last Admin: 07/02/17 12:18 Dose: 0.5 mg Ropinirole HCl (Requip) 0.5 mg PO DAILY [facility] Last Admin: 07/02/17 09:41 Dose: 0.5 mg Ropinirole HCl (Requip) 1.5 mg PO BEDTIME [facility] Last Admin: 07/01/17 21:43 Dose: 1.5 mg Senna/Docusate Sodium (Senna Plus) 1 tab PO BID PRN PRN Reason: Constipation Last Admin: 06/28/17 07:59 Dose: 1 tab Sumatriptan Succinate (Imitrex) 50 mg PO DAILY PRN PRN Reason: migraine Last Admin: 07/01/17 21:28 Dose: 50 mg Discontinued Medications Acetaminophen (Tylenol) 650 mg PO Q6H PRN PRN Reason: FEVER/PAIN Hydrocodone Bitart/Acetaminophen ([place] 325-10 Mg) 1 tab PO ONETIME ONE Stop: 06/25/17 21:48 Last Admin: 06/25/17 22:03 Dose: 1 tab Apixaban (Eliquis) 5 mg PO DAILY [facility] Last Admin: 06/26/17 08:45 Dose: 5 mg Aspirin (Halfprin) 81 mg PO DAILY [facility] Last Admin: 06/27/17 08:07 Dose: Not Given Digoxin (Lanoxin) 250 mcg IVPUSH ONETIME ONE Stop: 06/30/17 08:31 Last Admin: 06/30/17 08:06 Dose: 250 mcg Digoxin (Lanoxin) 250 mcg PO BEDTIME [facility] Last Admin: 06/30/17 21:13 Dose: 250 mcg Digoxin (Lanoxin) 250 mcg IVPUSH ONETIME ONE Stop: 07/01/17 08:01 Last Admin: 07/01/17 07:36 Dose: 250 mcg Diltiazem HCl (Cardizem Cd) 120 mg PO BID [facility] Last Admin: 06/29/17 11:24 Dose: Not Given Diltiazem HCl (Cardizem Cd) 120 mg PO DAILY [facility] Diltiazem HCl (Cardizem Cd) 120 mg PO DAILY [facility] Last Admin: 06/30/17 07:26 Dose: 120 mg Diltiazem HCl (Cardizem Cd) 120 mg PO DAILY [facility] Last Admin: 07/01/17 09:05 Dose: Not Given Furosemide (Lasix) 40 mg IVPUSH NOW ONE Stop: 06/28/17 16:01 Last Admin: 06/28/17 18:30 Dose: Not Given Ceftriaxone Sodium 1 gm/ (Sodium Chloride) 50 mls @ 100 mls/hr IV ONETIME ONE Stop: 06/25/17 22:43 Last Admin: 06/25/17 22:36 Dose: 100 mls/hr Sodium Chloride (Normal Saline) 1,000 mls @ 250 mls/hr IV ASDIRECTED [facility] Last Admin: 06/25/17 22:25 Dose: 250 mls/hr Potassium Chloride/Sodium Chloride (Normal Saline With 20 Meq Kcl) 1,000 mls @ 75 mls/hr IV ASDIRECTED [facility] Last Admin: 06/27/17 19:19 Dose: 75 mls/hr Potassium Chloride 20 meq/Lidocaine HCl 2 ml/ Sodium Chloride 112 mls @ 56 mls/ hr IV Q2H [place] Stop: 06/27/17 14:59 Last Admin: 06/27/17 13:24 Dose: 56 mls/hr Isosorbide Mononitrate (Imdur) 30 mg PO DAILY [facility] Last Admin: 06/27/17 10:36 Dose: Not Given Pantoprazole Sodium (Protonix) 80 mg PO ACBREAKFAST [facility] Last Admin: 06/27/17 07:09 Dose: Not Given Polyethylene Glycol (Miralax) 17 gm PO ONETIME ONE Stop: 06/28/17 14:01 Last Admin: 06/28/17 13:41 Dose: 17 gm Pregabalin (Lyrica) 50 mg PO ONETIME ONE Stop: 06/25/17 21:43 Last Admin: 06/25/17 22:03 Dose: 50 mg Pregabalin (Lyrica) 50 mg PO TID [facility] Last Admin: 06/26/17 13:54 Dose: Not Given Ropinirole HCl (Requip) 0.5 mg PO ONETIME ONE Stop: 06/26/17 21:55 Last Admin: 06/25/17 22:06 Dose: 0.5 mg Ropinirole HCl (Requip) Confirm Administered Dose 0.5 mg .ROUTE .STK-MED ONE Stop: 06/25/17 21:56 Last Admin: 06/25/17 21:58 Dose: Not Given Ropinirole HCl (Requip) 0.5 mg PO QPM [facility] Last Admin: 06/26/17 17:56 Dose: Not Given - Exam General: Reports: Alert, Oriented, No Acute Distress Cardiovascular: Reports: Regular Rate, Regular Rhythm, No Murmurs GI/Abdominal Exam: Soft, Non-Tender, No Organomegaly, No Distention Extremities: Other (Resolution of cellulitis left leg, residual changes of venous stasis)
[2017-07-02] MEDS: SUMAtriptan 50 MG Tab PO PRN (15:13)
== END 2017-07-02 15:20 | disposition home or self-care (01) | DRG 603 ==
LOC: JP.ED 20:38 → JP.ICU 22:34 → JP.MS 06-26 13:30
PROVIDERS: ADMIT Family Medicine; ATTEND Hospitalist
DX: L03.115 Cellulitis of right lower limb (principal); J44.9 Chronic obstructive pulmonary disease, unspecified; I10 Essential (primary) hypertension; E11.40 Type 2 diabetes mellitus with diabetic neuropathy, unspecified; Z79.4 Long term (current) use of insulin; I48.2 Chronic atrial fibrillation; Z79.01 Long term (current) use of anticoagulants; I25.10 Atherosclerotic heart disease of native coronary artery without angina pectoris; W19.XXXD Unspecified fall, subsequent encounter; M79.604 Pain in right leg; M79.89 Other specified soft tissue disorders; G44.319 Acute post-traumatic headache, not intractable; E78.5 Hyperlipidemia, unspecified; Z98.1 Arthrodesis status; G43.909 Migraine, unspecified, not intractable, without status migrainosus; N42.9 Disorder of prostate, unspecified; I95.9 Hypotension, unspecified; R00.1 Bradycardia, unspecified; M54.9 Dorsalgia, unspecified; G89.29 Other chronic pain; E55.9 Vitamin D deficiency, unspecified; Z87.891 Personal history of nicotine dependence; M19.90 Unspecified osteoarthritis, unspecified site; H54.7 Unspecified visual loss; Z96.653 Presence of artificial knee joint, bilateral; Z79.82 Long term (current) use of aspirin; Z79.84 Long term (current) use of oral hypoglycemic drugs; Z88.5 Allergy status to narcotic agent; Z91.048 Other nonmedicinal substance allergy status
CPT/HCPCS: 36415; 70450 ×2; 80053; 85025; 93971 ×2; 96360; 99284; 99285; A9270 ×3; J7040; 80048; 80162; 82962; 83735; 85027; 93005; 94664; J0690; J0696; J1160; J2405; J3480; J7030; J7050

== ENCOUNTER 2018-09-22 16:00 | Emergency (ER) | payer OTHER, MEDICARE, BC ==
[2018-09-22 16:10] VITALS: BP 114/60; PULSE 56
[2018-09-22] MEDS ORDERED: Acetaminophen 500 MG Tab PO ONE (16:30)
[2018-09-22] MEDS ORDERED: Diphtheria,Pertussis(Acell),Tetanus Vaccine 0.5 ML SDV IM ONE (16:30)
--- NOTE | 2018-09-22 16:35 | EDM.PDOC ---
ED HPI GENERAL MEDICAL PROBLEM - General Chief Complaint: Laceration Stated Complaint: [facility]IA [place] Time Seen by Provider: 09/22/18 16:20 Source of Information: Reports: Patient, EMS, Family, Old Records History Limitations: Reports: No Limitations - History of Present Illness INITIAL COMMENTS - FREE TEXT/NARRATIVE: 83 yo male was at a local business shopping while getting around with a knee walker. He hit the counter edge and tipped over hitting the L side of his head. He incurred a scalp laceration. There was no LOC, or nausea. Does have mild L shoulder pain and a HUTCHINSON. He is on Eliquis. Here via EMS. Onset: Today Onset Date: 09/22/18 Onset Time: 15:45 Duration: Minutes:, Constant Location: Reports: Head, Upper Extremity, Left (shoulder) Quality: Reports: Ache Severity: Moderate Improves with: Reports: None Worsens with: Reports: None Context: Reports: Trauma Associated Symptoms: Reports: No Other Symptoms Treatments PROSPECTING DRILLER: Reports: Other (see below) (none) Head Pain Score (Numeric/FACES): 6 - Related Data Allergies Allergy/AdvReac Type Severity Reaction Status Date / Time codeine AdvReac Nausea and Verified 06/25/17 20:43 Vomiting morphine AdvReac Headache Verified 06/25/17 20:43 foam tape AdvReac Blisters Uncoded 06/25/17 20:43 Home Meds: Home Meds Aspirin [Low Dose Aspirin EC] 81 mg PO DAILY 11/14/13 [History] Calcium Carb/Vit D3/Minerals [Hm Calcium 600 mg-Vit D Tab] 1 tab PO BID [History] Cholecalciferol (Vitamin D3) [D3-2000] 2,000 unit PO DAILY 11/14/13 [History] ClonazePAM [KlonoPIN] 0.5 mg PO BEDTIME 11/14/13 [History] Cyanocobalamin (Vitamin B-12) [Vitamin B-12] 1,000 mcg PO DAILY 11/14/13 [ History] Diphenoxylate HCl/Atropine [Diphenoxylate-Atrop 2.5-0.025] 1 each PO ASDIRECTED PRN 11/14/13 [History] Multivitamin [Multi-Vitamin Daily] 1 tab PO DAILY 11/14/13 [History] [place]-3 Fatty Acids [[place]-3] 1,000 mg PO BID 11/14/13 [History] Pantoprazole Sodium 80 mg PO DAILY 11/14/13 [History] SUMAtriptan Succinate [Imitrex] 50 mg PO ASDIRECTED PRN 11/14/13 [History] atorvaSTATin [Lipitor] 40 mg PO BEDTIME 11/14/13 [History] Albuterol Sulfate [Proair Hfa] 2 puff INH Q6H PRN 01/14/16 [History] Finasteride [Proscar] 5 mg PO DAILY 01/14/16 [History] Furosemide [Lasix] 60 mg PO DAILY 01/14/16 [History] Nitroglycerin 0.4 mg SL ASDIRECTED PRN 01/14/16 [History] Pregabalin [Lyrica] 50 mg PO TID 01/14/16 [History] metFORMIN [Glucophage] 500 mg PO DAILY 01/14/16 [History] rOPINIRole [Requip] 0.5 mg PO QPM 01/14/16 [History] Ferrous Gluconate 324 mg PO BID 08/28/16 [History] Lidocaine 2% [Xylocaine 2% Jelly] 1 applic TOP ASDIRECTED 08/28/16 [History] Apixaban [Eliquis] 5 mg PO BID 06/19/17 [History] Diltiazem [Dilacor XR] 1 tab PO BID 06/19/17 [History] Isosorbide Mononitrate [Isosorbide Mononitrate ER] 1 tab PO DAILY #0 07/02/17 [ Rx] cephALEXin [Cephalexin] 500 mg PO Q8H #9 capsule 07/02/17 [Rx] Past Medical History HEENT History: Reports: Impaired Vision Cardiovascular History: Reports: High Cholesterol, SOB on Exertion, Other (See Below) Other Cardiovascular History: recent episode of a fib Apr 2017. Respiratory History: Reports: Asthma, COPD Gastrointestinal History: Reports: GERD, Hemorrhoids Genitourinary History: Reports: Prostate Disorder, Other (See Below) Other Genitourinary History: self cath Musculoskeletal History: Reports: Arthritis, Back Pain, Chronic, Fracture, Neck Pain, Chronic, Osteoarthritis, Other (See Below) Other Musculoskeletal History: L hip pain Neurological History: Reports: Migraines, Neuropathy, Diabetic Endocrine/Metabolic History: Reports: Diabetes, Type II, Obesity/BMI 30+, Vitamin D Deficiency Hematologic History: Reports: Blood Transfusion(s), Iron Deficiency Dermatologic History: Reports: None - Infectious Disease History Infectious Disease History: Reports: Chicken Pox, Measles, Shingles - Past Surgical History Cardiovascular Surgical History: Reports: None Respiratory Surgical History: Reports: None GI Surgical History: Reports: Appendectomy, Cholecystectomy, Colonoscopy, EGD, Hernia, Abdominal, Hernia, Inguinal, Hernia Repair/Other Male Surgical History: Reports: Prostate Biopsy, Prostatectomy, Vasectomy Endocrine Surgical History: Reports: None Neurological Surgical History: Reports: C-Spine, Spinal Fusion, Thoracic Spine, Other (See Below) Other Neurological Surgeries/Procedures: T11 to S1 Musculoskeletal Surgical History: Reports: Arthroscopic Procedure, Carpal Tunnel , Knee Replacement, Shoulder Surgery Dermatological Surgical History: Reports: Skin Biopsy Social & Family History - Family History Cardiac: Reports: Heart Failure - Tobacco Use Smoking Status *Q: Unknown Ever Smoked - Caffeine Use Caffeine Use: Reports: Coffee Other Caffeine Use: 1x/wk ED ROS GENERAL - Review of Systems Review Of Systems: See Below Constitutional: Reports: No Symptoms HEENT: Reports: No Symptoms Respiratory: Reports: No Symptoms Cardiovascular: Reports: No Symptoms Endocrine: Reports: No Symptoms GI/Abdominal: Reports: No Symptoms. Denies: Nausea : Reports: No Symptoms Musculoskeletal: Reports: Shoulder Pain (left) Skin: Reports: Wound (L sided scalp laceration) Neurological: Reports: Headache. Denies: Dizziness Psychiatric: Reports: No Symptoms ED EXAM, SKIN/RASH Exam: See Below Exam Limited By: No Limitations General Appearance: Alert, WD/WN, No Apparent Distress Eye Exam: Bilateral Eye: Normal Inspection, PERRL Ears: Normal External Exam, Normal Canal, Hearing Grossly Normal, Normal TMs Nose: Normal Inspection, No Blood Throat/Mouth: Normal Inspection, Normal Lips, Normal Oropharynx, Normal Voice, No Airway Compromise Head: Other (bleeding left sided scalp laceration. ) Neck: Normal Inspection, Non-Tender Respiratory/Chest: No Respiratory Distress, Lungs Clear, Normal Breath Sounds, No Accessory Muscle Use Cardiovascular: Regular Rate, Rhythm, No Edema Extremities: Normal Inspection, Normal Range of Motion, Non-Tender, No Pedal Edema. No: Limited Range of Motion Neurological: Alert, Oriented, CN II-XII Intact, Normal Cognition, No Motor/ Sensory Deficits Psychiatric: Normal Affect, Normal Mood Skin: Warm, Dry, Normal Color, No Rash, Wound/Incision Location, Skin: Head Characteristics: Linear Associated features: Tenderness. No: Induration ED SKIN PROCEDURES - Laceration/Wound Repair Left Lateral Head Lac/Wound length In cm: 2.4 Appearance: Subcutaneous, Linear, Clean Distal NVT: Neuro & Vascular Intact, No Tendon Injury Anesthetic Type: Other (none) Skin Prep: Saline, Other (H2O2) Exploration/Debridement/Repair: Wound Explored Closed with: Zev # of Sutures: 3 Drain Placement: No Sterile Dressing Applied: None Tetanus Status Addressed: Yes Complications: No Course - Vital Signs Last Recorded V/S: Last Vital Signs Temp 36.0 C 09/22/18 16:07 Pulse 56 L 09/22/18 16:07 Resp 18 09/22/18 16:07 BP 114/60 09/22/18 16:07 Pulse Ox 98 09/22/18 16:07 - Orders/Labs/Meds Orders: Active Orders 24 hr Category Date Time Status Vaccines to be Administered [RC] PER UNIT ROUTINE Care 09/22/18 16:30 Active Meds: Medications Discontinued Medications Generic Name Dose Route Start Last Admin Trade Name Tena PRN Reason Stop Dose Admin Acetaminophen 1,000 mg 09/22/18 16:30 09/22/18 16:33 Tylenol Extra Strength PO 09/22/18 16:31 1,000 mg ONETIME ONE Administration Diphtheria/Tetanus/Acell Pertussis 0.5 ml 09/22/18 16:30 09/22/18 16:33 Adacel IM 09/22/18 16:31 0.5 ml .ONCE ONE Administration Hydrogen Peroxide 90 ml 09/22/18 17:37 Hydrogen Peroxide TOP 09/22/18 17:38 ONETIME ONE - Radiology Interpretation Free Text/Narrative:: Head CT neg CT Results Date: 09/22/18 CT Results Time: 17:25 Departure - Departure Time of Disposition: 17:55 Disposition: Home, Self-Care 01 Condition: Fair Clinical Impression: Concussion Qualifiers: Encounter type: initial encounter Loss of consciousness presence/duration: without LOC Qualified Code(s): S06.0X0A - Concussion without loss of consciousness, initial encounter Scalp laceration Qualifiers: Encounter type: initial encounter Qualified Code(s): S01.01XA - Laceration without foreign body of scalp, initial encounter Shoulder contusion Qualifiers: Encounter type: initial encounter Laterality: left Qualified Code(s): S40.012A - Contusion of left shoulder, initial encounter - Discharge Information *PRESCRIPTION DRUG MONITORING PROGRAM REVIEWED*: No *COPY OF PRESCRIPTION DRUG MONITORING REPORT IN PATIENT HORACIO: No Instructions: Concussion, Adult, [id number], Laceration Care, Adult, Easy-to- Read Referrals: Aaron Dunham MD [Primary Care Provider] - Forms: ED Department Discharge Additional Instructions: Clean your wounds twice daily with 1/2 water and 1/2 peroxide. Dry. Apply antibiotic ointment. Take acetaminophen up to 1000 mg every 6 hrs for pain relief. Rest for the next few days. Zev out in 9 days in the clinic, call for an appt. Return as needed. - My Orders Last 24 Hours: My Active Orders 09/22/18 16:30 Vaccines to be Administered [RC] PER UNIT ROUTINE - Assessment/Plan Last 24 Hours: My Active Orders 09/22/18 16:30 Vaccines to be Administered [RC] PER UNIT ROUTINE
--- NOTE | 2018-09-22 17:16 | CRLCT ---
INDICATION: head injury, on eliquis TECHNIQUE: CT of the head without contrast. Coronal reformats. Bone and soft tissue algorithms. COMPARISON: 06/25/2017 CT FINDINGS: No acute intracranial hemorrhage or extra-axial collection. No evidence of acute cortical infarction. No mass effect or midline shift. Mild generalized cerebral/cerebellar parenchymal volume loss. Mild regions of decreased attenuation within the periventricular and subcortical white matter of both cerebral hemispheres most likely reflects chronic microvascular ischemic disease and age related change in this patient. Vascular calcifications within the carotid siphons. Orbital contents are normal. Paranasal sinuses are unremarkable. Mastoid air cells are clear. No calvarial fractures. No lytic or sclerotic osseous lesions within the calvarium or skull base. Small left frontal scalp hematoma and possible laceration (series 5, image 39). Similar 2 cm region of focal thickening of the right parietal scalp, of uncertain etiology; please correlate clinically. Cerumen in the external ear canals. IMPRESSION: 1. No acute intracranial abnormality. 2. Right posterior parietal scalp hematoma and left frontal scalp hematoma and possible laceration. 3. Similar 2 cm region of focal thickening of the right parietal scalp, of uncertain etiology; please correlate clinically. Please note that all CT scans at this facility use dose modulation, iterative reconstruction, and/or weight-based dosing when appropriate to reduce radiation dose to as low as reasonably achievable. Dictated by Nas Huerta MD @ Sep 22 2018 5:10PM Signed by Dr. Nas Huerta @ Sep 22 2018 5:14PM
[2018-09-22] MEDS ORDERED: Hydrogen Peroxide 3% Top Soln 240 ML Bottle ONE (17:44)
[2018-09-22] MEDS ORDERED: Hydrogen Peroxide 3% Top Soln 240 ML Bottle TOP ONE (17:45)
[2018-09-22] MEDS ORDERED: Bacitracin Oint 1 GM U/D Packet TOP ONE (17:47)
== END 2018-09-22 18:19 | disposition home or self-care (01) ==
LOC: JP.ED 16:00
DX: S06.0X0A Concussion without loss of consciousness, initial encounter (principal); S01.01XA Laceration without foreign body of scalp, initial encounter; S40.012A Contusion of left shoulder, initial encounter; Z23 Encounter for immunization; J44.9 Chronic obstructive pulmonary disease, unspecified; E78.00 Pure hypercholesterolemia, unspecified; K21.9 Gastro-esophageal reflux disease without esophagitis; Z79.82 Long term (current) use of aspirin; Z79.899 Other long term (current) drug therapy; Z88.5 Allergy status to narcotic agent; Z91.09 Other allergy status, other than to drugs and biological substances; W22.8XXA Striking against or struck by other objects, initial encounter
CPT/HCPCS: 12001; 70450; 90471; 90715; 99283; A9270

== ENCOUNTER 2018-10-10 12:35 | Observation (INO) | payer MEDICARE, BC ==
[2018-10-10] MEDS ORDERED: Sodium Chloride 0.9% 10 ML Syringe FLUSH PRN (13:26)
[2018-10-10] MEDS ORDERED: Sodium Chloride 0.9% 10 ML SDV IV SCH (14:30)
--- NOTE | 2018-10-10 14:43 | CRLCR ---
INDICATION : INDICATION : Weakness. Elderly. TECHNIQUE : Upright AP and lateral images of the chest. COMPARISON : 06/19/2017. FINDINGS : Lungs low in volume. Scarring at the right base. No acute infiltrate or pleural effusion. Heart size and pulmonary vasculature within normal limits. No significant bony abnormality. IMPRESSION : Lungs low in volume and clear except for right base scarring. Dictated by Adam Bunch MD @ Oct 10 2018 2:39PM Signed by Dr. Adam Bunch @ Oct 10 2018 2:42PM
[2018-10-10] MEDS ORDERED: Sodium Chloride 0.9% 1,000 ML IV SCH (15:15)
[2018-10-10] MEDS ORDERED: Iron Sucrose Complex 500 MG in Sodium Chloride 0.9% 250 ML IV ONE ×2 (15:56→20:00)
[2018-10-10] MEDS ORDERED: Potassium Chloride 20 MEQ in Premix Bag 1 BAG IV ONE (15:59)
[2018-10-10] MEDS ORDERED: Potassium Chloride 20 MEQ Tab.ER PO ONE (16:01)
[2018-10-10] MEDS ORDERED: LORazepam 2 MG/ML SDV IVPUSH ONE (16:47)
--- NOTE | 2018-10-10 16:48 | EDM.PDOC ---
ED HPI GENERAL MEDICAL PROBLEM - General Chief Complaint: General Stated Complaint: WEAKNESS Time Seen by Provider: 10/10/18 12:50 Source of Information: Reports: Patient, Family History Limitations: Reports: No Limitations - History of Present Illness INITIAL COMMENTS - FREE TEXT/NARRATIVE: Alert pleasant 83-year-old gentleman presents with generalized weakness which has suddenly worsened over the last 48 hours. Patient has some left-sided weakness compared to the right side which is not necessarily new worse or different or concerning to him. Patient also has chronic muscle spasms and restless legs which waxes and wanes in intensity baseline activity level. Patient states yesterday he felt generally weak majority of his weakness is in the distal hands and feet. Patient was not using a walker but obtained 1 yesterday and been using today due to inability to walk and gait difficulties. Patient was unable to write or hold a pen in his hand today and he was able to do it yesterday. Patient's denies any recent falls or injury. He did fall on September 22 was evaluated in the ER and a CT head was completed which was negative. Patient denies any recent changes in his medications and taking as directed. Patient denies any cough or upper respiratory tract symptoms. He has a history of urinary retention therefore straight catheters once every 2 weeks to prevent any retention of urine infections. Patient does not have Keflex on his medication list unsure if this is prevention of UTI or acute infection. Patient denies any fever, chills or sweats. His appetite has been decreased over the last couple of weeks. Patient denies other for recent GI illness, viral illness or rash. Right Foot Pain Score (Numeric/FACES): 5 - Related Data Allergies Allergy/AdvReac Type Severity Reaction Status Date / Time codeine AdvReac Nausea and Verified 10/10/18 13:15 Vomiting morphine AdvReac Headache Verified 10/10/18 13:15 foam tape AdvReac Blisters Uncoded 06/25/17 20:43 Home Meds: Home Meds Aspirin [Low Dose Aspirin EC] 81 mg PO DAILY 11/14/13 [History] Calcium Carb/Vit D3/Minerals [Hm Calcium 600 mg-Vit D Tab] 1 tab PO BID [History] Cholecalciferol (Vitamin D3) [D3-2000] 2,000 unit PO DAILY 11/14/13 [History] ClonazePAM [KlonoPIN] 0.5 mg PO BEDTIME 11/14/13 [History] Cyanocobalamin (Vitamin B-12) [Vitamin B-12] 1,000 mcg PO DAILY 11/14/13 [ History] Diphenoxylate HCl/Atropine [Diphenoxylate-Atrop 2.5-0.025] 1 each PO ASDIRECTED PRN 11/14/13 [History] Multivitamin [Multi-Vitamin Daily] 1 tab PO DAILY 11/14/13 [History] Henderson-3 Fatty Acids [Henderson-3] 1,000 mg PO BID 11/14/13 [History] Pantoprazole Sodium 80 mg PO DAILY 11/14/13 [History] SUMAtriptan Succinate [Imitrex] 50 mg PO ASDIRECTED PRN 11/14/13 [History] atorvaSTATin [Lipitor] 40 mg PO BEDTIME 11/14/13 [History] Albuterol Sulfate [Proair Hfa] 2 puff INH Q6H PRN 01/14/16 [History] Finasteride [Proscar] 5 mg PO DAILY 01/14/16 [History] Nitroglycerin 0.4 mg SL ASDIRECTED PRN 01/14/16 [History] metFORMIN [Glucophage] 500 mg PO DAILY 01/14/16 [History] Ferrous Gluconate 324 mg PO BID 08/28/16 [History] Lidocaine 2% [Xylocaine 2% Jelly] 1 applic TOP ASDIRECTED 08/28/16 [History] Apixaban [Eliquis] 5 mg PO BID 06/19/17 [History] Diltiazem [Dilacor XR] 1 tab PO BID 06/19/17 [History] Baclofen 5 mg PO TID 10/10/18 [History] Furosemide 80 mg PO DAILY 10/10/18 [History] Potassium Chloride 10 meq PO DAILY 10/10/18 [History] Pregabalin [Lyrica] 100 mg PO TID 10/10/18 [History] rOPINIRole [Requip] 2 mg PO BEDTIME 10/10/18 [History] traMADol HCl [Tramadol HCl] 50 mg PO Q6H PRN 10/10/18 [History] Past Medical History HEENT History: Reports: Impaired Vision Cardiovascular History: Reports: High Cholesterol, SOB on Exertion, Other (See Below) Other Cardiovascular History: recent episode of a fib Apr 2017. Respiratory History: Reports: Asthma, COPD Gastrointestinal History: Reports: GERD, Hemorrhoids Genitourinary History: Reports: Prostate Disorder, Other (See Below) Other Genitourinary History: self cath Musculoskeletal History: Reports: Arthritis, Back Pain, Chronic, Fracture, Neck Pain, Chronic, Osteoarthritis, Other (See Below) Other Musculoskeletal History: L hip pain Neurological History: Reports: Migraines, Neuropathy, Diabetic Endocrine/Metabolic History: Reports: Diabetes, Type II, Obesity/BMI 30+, Vitamin D Deficiency Hematologic History: Reports: Blood Transfusion(s), Iron Deficiency Dermatologic History: Reports: None - Infectious Disease History Infectious Disease History: Reports: Chicken Pox, Measles, Shingles - Past Surgical History GI Surgical History: Reports: Appendectomy, Cholecystectomy, Colonoscopy, EGD, Hernia, Abdominal, Hernia, Inguinal, Hernia Repair/Other Male Surgical History: Reports: Prostate Biopsy, Prostatectomy, Vasectomy Neurological Surgical History: Reports: C-Spine, Spinal Fusion, Thoracic Spine, Other (See Below) Other Neurological Surgeries/Procedures: T11 to S1 Musculoskeletal Surgical History: Reports: Arthroscopic Procedure, Carpal Tunnel , Knee Replacement, Shoulder Surgery Dermatological Surgical History: Reports: Skin Biopsy Social & Family History - Family History Cardiac: Reports: Heart Failure - Tobacco Use Smoking Status *Q: Never Smoker - Caffeine Use Caffeine Use: Reports: Coffee Other Caffeine Use: 1x/wk - Recreational Drug Use Recreational Drug Use: No ED ROS GENERAL - Review of Systems Review Of Systems: See Below Constitutional: Reports: Weakness, Fatigue, Decreased Appetite, Other ( worsening of restless legs ). Denies: Fever, Chills, Weight Gain Respiratory: Reports: No Symptoms Cardiovascular: Reports: No Symptoms, Edema (legs worse during the day and improved at night) Endocrine: Reports: Fatigue GI/Abdominal: Reports: Anorexia, Decreased Appetite : Reports: No Symptoms Musculoskeletal: Reports: No Symptoms Skin: Reports: No Symptoms Neurological: Reports: Numbness, Paresthesia, Syncope, Tremors, Weakness, Gait Disturbance Psychiatric: Reports: No Symptoms Hematologic/Lymphatic: Reports: No Symptoms Immunologic: Reports: No Symptoms ED EXAM, GENERAL - Physical Exam Exam: See Below Exam Limited By: No Limitations General Appearance: Alert, WD/WN, Moderate Distress (due to profound restless legs which spams and jump in the bed with some discomfort) Eye Exam: Bilateral Eye: EOMI, PERRL Ears: Normal External Exam, Normal Canal, Hearing Grossly Normal Nose: Normal Inspection, Normal Mucosa, No Blood Throat/Mouth: Normal Inspection, Normal Lips, Normal Teeth, Normal Gums, Normal Oropharynx, Normal Voice, No Airway Compromise, Other (dry mouth) Neck: Normal Inspection, Supple, Non-Tender. No: Lymphadenopathy (R), Lymphadenopathy (L) Respiratory/Chest: No Respiratory Distress, Lungs Clear, Normal Breath Sounds, No Accessory Muscle Use, Chest Non-Tender Cardiovascular: Normal Peripheral Pulses, Regular Rate, Rhythm, No Gallop, No Murmur GI/Abdominal: Normal Bowel Sounds, Soft, Non-Tender (Male) Exam: Deferred Rectal (Males) Exam: Deferred Back Exam: Normal Inspection. No: CVA Tenderness (R), CVA Tenderness (L) Extremities: Normal Inspection, Normal Range of Motion, Pedal Edema, Other ( skin texture changes due to PVD ) Neurological: Alert, Oriented, CN II-XII Intact, Normal Cognition, Sensory/ Motor Deficit (weakness in bilateral arms/hands and slight weakness in bilateral legs ) Psychiatric: Normal Affect, Normal Mood Skin Exam: Warm, Dry, Intact, Normal Color, No Rash EKG INTERPRETATION EKG Date: 10/10/18 Rhythm: NSR [place]: LAD-Left [place] Deviation P-Wave: Present QRS: RBBB ST-T: Normal QT: Normal Comparison: No Change (June 2017) Course - Vital Signs Last Recorded V/S: Last Vital Signs Temp 36.6 C 10/10/18 13:16 Pulse 68 10/10/18 17:51 Resp 14 10/10/18 17:51 BP 115/38 L 10/10/18 17:51 Pulse Ox 95 10/10/18 16:42 - Orders/Labs/Meds Orders: Active Orders 24 hr Category Date Time Status Cardiac Monitoring [RC] .As Directed Care 10/10/18 13:25 Active EKG Documentation Completion [RC] ASDIRECTED Care 10/10/18 13:26 Active Peripheral IV Care [RC] . DIRECTED Care 10/10/18 13:26 Active CULTURE BLOOD [BC] Urgent Lab 10/10/18 13:48 Received CULTURE BLOOD [BC] Urgent Lab 10/10/18 13:55 Received CULTURE URINE [RM] Stat Lab 10/10/18 15:08 Received Iron Sucrose Complex [Venofer] 500 mg Med 10/10/18 20:00 Active Sodium Chloride 0.9% [Normal Saline] 250 ml IV ONETIME Potassium Chloride 20 meq Med 10/10/18 17:00 Active Lidocaine 1% [Xylocaine 1%] 2 ml Sodium Chloride 0.9% [Normal Saline] 100 ml IV ONETIME Sodium Chloride 0.9% [Normal Saline] 1,000 ml Med 10/10/18 15:15 Active IV ASDIRECTED Sodium Chloride 0.9% [Saline Flush] Med 10/10/18 13:26 Active 10 ml FLUSH ASDIRECTED PRN Blood Culture x2 Reflex Set [OM.PC] Urgent Oth 10/10/18 13:26 Ordered Peripheral IV Insertion Adult [OM.PC] Urgent Oth 10/10/18 13:25 Ordered EKG 12 Lead [EK] Routine Ther 10/10/18 13:25 Ordered Medication Orders Sodium Chloride (Normal Saline) 1,000 mls @ 500 mls/hr IV ASDIRECTED [place] Last Admin: 10/10/18 15:10 Dose: 500 mls/hr Potassium Chloride 20 meq/Lidocaine HCl 2 ml/ Sodium Chloride 112 mls @ 56 mls/ hr IV ONETIME ONE Stop: 10/10/18 18:59 Last Admin: 10/10/18 18:38 Dose: 56 mls/hr Iron Sucrose 500 mg/ Sodium (Chloride) 275 mls @ 62.5 mls/hr IV ONETIME ONE Stop: 10/11/18 00:23 Sodium Chloride (Saline Flush) 10 ml FLUSH ASDIRECTED PRN PRN Reason: Keep Vein Open Last Admin: 10/10/18 13:57 Dose: 10 ml Labs: Laboratory Tests 10/10/18 10/10/18 10/10/18 Range/Units 13:26 13:48 13:48 WBC 10.8 (4.5-11.0) K/uL RBC 3.84 L (4.30-5.90) M/uL Hgb 11.6 L (12.0-15.0) g/dL Hct 36.7 L (40.0-54.0) % MCV 96 (80-98) fL MCH 30 (27-31) pg MCHC 32 (32-36) % Plt Count 262 (150-400) K/uL Neut % (Auto) 61 (36-66) % Lymph % (Auto) 27 (24-44) % [place] % (Auto) 10 H (2-6) % Eos % (Auto) 2 (2-4) % Baso % (Auto) 1 (0-1) % ESR (0-20) mm/hr Sodium 140 (140-148) mmol/L Potassium 3.3 L (3.6-5.2) mmol/L Chloride 99 L (100-108) mmol/L Carbon Dioxide 30 (21-32) mmol/L Anion Gap 14.3 H (5.0-14.0) mmol/L BUN 13 (7-18) mg/dL Creatinine 1.3 (0.8-1.3) mg/dL Est Cr Clr Drug Dosing 39.53 mL/min Estimated GFR (MDRD) 53 L (>60) Glucose 125 H (74-106) mg/dL Lactic Acid (0.4-2.0) mmol/L Calcium 8.6 (8.5-10.1) mg/dL Magnesium (1.8-2.4) mg/dL Iron 18 L (65-175) ug/dL TIBC 246 L (250-450) ug/dl % Saturation 7 L (20-55) % Total Bilirubin 0.4 (0.2-1.0) mg/dL AST 18 (15-37) U/L ALT 21 (12-78) U/L Alkaline Phosphatase 140 H (46-116) U/L Troponin I < 0.017 (0.000-0.056) ng/mL C-Reactive Protein (0.0-0.3) mg/dL Total Protein 7.6 (6.4-8.2) g/dL Albumin 3.0 L (3.4-5.0) g/dL Globulin 4.6 H (2.3-3.5) g/dL Albumin/Globulin Ratio 0.7 L (1.2-2.2) Lipase (73-393) U/L Vitamin B12 (193-986) pg/ml Urine Color Urine Appearance Urine pH (4.5-8.0) Ur Specific [place] (1.008-1.030) Urine Protein (NEGATIVE) mg/dL Urine Glucose (UA) (NEGATIVE) mg/dL Urine Ketones (NEGATIVE) mg/dL Urine Occult Blood (NEGATIVE) Urine Nitrite (NEGAITVE) Urine Bilirubin (NEGATIVE) Urine Urobilinogen (NORMAL) mg/dL Ur Leukocyte Esterase (NEGATIVE) Urine RBC (0-5) Urine WBC (0-5) Ur Epithelial Cells Amorphous Sediment Urine Bacteria Urine Mucus 10/10/18 10/10/18 10/10/18 Range/Units 13:48 13:48 13:48 WBC (4.5-11.0) K/uL RBC (4.30-5.90) M/uL Hgb (12.0-15.0) g/dL Hct (40.0-54.0) % MCV (80-98) fL MCH (27-31) pg MCHC (32-36) % Plt Count (150-400) K/uL Neut % (Auto) (36-66) % Lymph % (Auto) (24-44) % [place] % (Auto) (2-6) % Eos % (Auto) (2-4) % Baso % (Auto) (0-1) % ESR 58 H (0-20) mm/hr Sodium (140-148) mmol/L Potassium (3.6-5.2) mmol/L Chloride (100-108) mmol/L Carbon Dioxide (21-32) mmol/L Anion Gap (5.0-14.0) mmol/L BUN (7-18) mg/dL Creatinine (0.8-1.3) mg/dL Est Cr Clr Drug Dosing mL/min Estimated GFR (MDRD) (>60) Glucose (74-106) mg/dL Lactic Acid 2.2 H (0.4-2.0) mmol/L Calcium (8.5-10.1) mg/dL Magnesium (1.8-2.4) mg/dL Iron (65-175) ug/dL TIBC (250-450) ug/dl % Saturation (20-55) % Total Bilirubin (0.2-1.0) mg/dL AST (15-37) U/L ALT (12-78) U/L Alkaline Phosphatase (46-116) U/L Troponin I (0.000-0.056) ng/mL C-Reactive Protein 6.50 H (0.0-0.3) mg/dL Total Protein (6.4-8.2) g/dL Albumin (3.4-5.0) g/dL Globulin (2.3-3.5) g/dL Albumin/Globulin Ratio (1.2-2.2) Lipase 56 L (73-393) U/L Vitamin B12 2787 H (193-986) pg/ml Urine Color Urine Appearance Urine pH (4.5-8.0) Ur Specific [place] (1.008-1.030) Urine Protein (NEGATIVE) mg/dL Urine Glucose (UA) (NEGATIVE) mg/dL Urine Ketones (NEGATIVE) mg/dL Urine Occult Blood (NEGATIVE) Urine Nitrite (NEGAITVE) Urine Bilirubin (NEGATIVE) Urine Urobilinogen (NORMAL) mg/dL Ur Leukocyte Esterase (NEGATIVE) Urine RBC (0-5) Urine WBC (0-5) Ur Epithelial Cells Amorphous Sediment Urine Bacteria Urine Mucus 10/10/18 10/10/18 Range/Units 13:49 15:55 WBC (4.5-11.0) K/uL RBC (4.30-5.90) M/uL Hgb (12.0-15.0) g/dL Hct (40.0-54.0) % MCV (80-98) fL MCH (27-31) pg MCHC (32-36) % Plt Count (150-400) K/uL Neut % (Auto) (36-66) % Lymph % (Auto) (24-44) % [place] % (Auto) (2-6) % Eos % (Auto) (2-4) % Baso % (Auto) (0-1) % ESR (0-20) mm/hr Sodium (140-148) mmol/L Potassium (3.6-5.2) mmol/L Chloride (100-108) mmol/L Carbon Dioxide (21-32) mmol/L Anion Gap (5.0-14.0) mmol/L BUN (7-18) mg/dL Creatinine (0.8-1.3) mg/dL Est Cr Clr Drug Dosing mL/min Estimated GFR (MDRD) (>60) Glucose (74-106) mg/dL Lactic Acid (0.4-2.0) mmol/L Calcium (8.5-10.1) mg/dL Magnesium 2.0 (1.8-2.4) mg/dL Iron (65-175) ug/dL TIBC (250-450) ug/dl % Saturation (20-55) % Total Bilirubin (0.2-1.0) mg/dL AST (15-37) U/L ALT (12-78) U/L Alkaline Phosphatase (46-116) U/L Troponin I (0.000-0.056) ng/mL C-Reactive Protein (0.0-0.3) mg/dL Total Protein (6.4-8.2) g/dL Albumin (3.4-5.0) g/dL Globulin (2.3-3.5) g/dL Albumin/Globulin Ratio (1.2-2.2) Lipase (73-393) U/L Vitamin B12 (193-986) pg/ml Urine Color Yellow Urine Appearance Clear Urine pH 5.0 (4.5-8.0) Ur Specific [place] 1.015 (1.008-1.030) Urine Protein Negative (NEGATIVE) mg/dL Urine Glucose (UA) Normal (NEGATIVE) mg/dL Urine Ketones Negative (NEGATIVE) mg/dL Urine Occult Blood Moderate (NEGATIVE) Urine Nitrite Negative (NEGAITVE) Urine Bilirubin Negative (NEGATIVE) Urine Urobilinogen Normal (NORMAL) mg/dL Ur Leukocyte Esterase Small (NEGATIVE) Urine RBC 0-5 (0-5) Urine WBC 0-5 (0-5) Ur Epithelial Cells Not seen Amorphous Sediment Not seen Urine Bacteria Few Urine Mucus Few Meds: Medications Generic Name Dose Route Start Last Admin Trade Name Freq PRN Reason Stop Dose Admin Sodium Chloride 1,000 mls @ 500 mls/hr 10/10/18 15:15 10/10/18 15:10 Normal Saline IV 500 mls/hr ASDIRECTED [place] Administration Potassium Chloride 20 meq/ 112 mls @ 56 mls/hr 10/10/18 17:00 10/10/18 18:38 Lidocaine HCl 2 ml/ Sodium IV 10/10/18 18:59 56 mls/hr Chloride ONETIME ONE Administration Iron Sucrose 500 mg/ Sodium 275 mls @ 62.5 mls/hr 10/10/18 20:00 Chloride IV 10/11/18 00:23 ONETIME ONE Sodium Chloride 10 ml 10/10/18 13:26 10/10/18 13:57 Saline Flush FLUSH 10 ml ASDIRECTED PRN Administration Keep Vein Open Discontinued Medications Generic Name Dose Route Start Last Admin Trade Name Freq PRN Reason Stop Dose Admin Lorazepam 0.5 mg 10/10/18 16:47 10/10/18 18:36 Ativan IVPUSH 10/10/18 16:48 0.5 mg ONETIME ONE Administration Potassium Chloride 20 meq 10/10/18 16:01 Klor-Con M20 PO 10/10/18 16:02 ONETIME ONE Sodium Chloride 500 ml 10/10/18 14:30 Normal Saline IV ASDIRECTED [place] Departure - Departure Time of Disposition: 18:41 Disposition: Admitted As Inpatient 67 Condition: Good Clinical Impression: Hypokalemia, Abnormal albumin, Iron deficiency, Renal insufficiency, Restless legs syndrome - Discharge Information - Problem List & Annotations (1) Hypokalemia SNOMED Code(s): 94567019 Code(s): E87.6 - HYPOKALEMIA Status: Acute Priority: High Current Visit : Yes (2) Restless legs syndrome SNOMED Code(s): 18134636 Code(s): G25.81 - RESTLESS LEGS SYNDROME Status: Acute Current Visit: Yes (3) Abnormal albumin SNOMED Code(s): 594183145, 408210458, 175429660 Code(s): R77.0 - ABNORMALITY OF ALBUMIN Status: Acute Current Visit: Yes (4) Renal insufficiency SNOMED Code(s): 600882137, 809767983 Code(s): N28.9 - DISORDER OF KIDNEY AND URETER, UNSPECIFIED Status: Acute Current Visit: Yes (5) Iron deficiency SNOMED Code(s): 99243375 Code(s): E61.1 - IRON DEFICIENCY Status: Acute Current Visit: Yes (6) Ataxia SNOMED Code(s): 23506122 Code(s): R27.0 - ATAXIA, UNSPECIFIED Status: Chronic Current Visit: No (7) Chronic venous insufficiency Status: Chronic Current Visit: No (8) Type 2 diabetes mellitus SNOMED Code(s): 10697420 Code(s): E11.9 - TYPE 2 DIABETES MELLITUS WITHOUT COMPLICATIONS Status: Chronic Current Visit: No - My Orders Last 24 Hours: My Active Orders 10/10/18 13:25 Cardiac Monitoring [RC] .As Directed Peripheral IV Insertion Adult [OM.PC] Urgent EKG 12 Lead [EK] Routine 10/10/18 13:26 EKG Documentation Completion [RC] ASDIRECTED Peripheral IV Care [RC] . DIRECTED Sodium Chloride 0.9% [Saline Flush] 10 ml FLUSH ASDIRECTED PRN Blood Culture x2 Reflex Set [OM.PC] Urgent 10/10/18 13:48 CULTURE BLOOD [BC] Urgent 10/10/18 13:55 CULTURE BLOOD [BC] Urgent 10/10/18 15:08 CULTURE URINE [RM] Stat 10/10/18 15:15 Sodium Chloride 0.9% [Normal Saline] 1,000 ml IV ASDIRECTED 10/10/18 17:00 Potassium Chloride 20 meq Lidocaine 1% [Xylocaine 1%] 2 ml Sodium Chloride 0.9 % [Normal Saline] 100 ml IV ONETIME 10/10/18 20:00 Iron Sucrose Complex [Venofer] 500 mg Sodium Chloride 0.9% [Normal Saline] 250 ml IV ONETIME - Assessment/Plan Last 24 Hours: My Active Orders 10/10/18 13:25 Cardiac Monitoring [RC] .As Directed Peripheral IV Insertion Adult [OM.PC] Urgent EKG 12 Lead [EK] Routine 10/10/18 13:26 EKG Documentation Completion [RC] ASDIRECTED Peripheral IV Care [RC] . DIRECTED Sodium Chloride 0.9% [Saline Flush] 10 ml FLUSH ASDIRECTED PRN Blood Culture x2 Reflex Set [OM.PC] Urgent 10/10/18 13:48 CULTURE BLOOD [BC] Urgent 10/10/18 13:55 CULTURE BLOOD [BC] Urgent 10/10/18 15:08 CULTURE URINE [RM] Stat 10/10/18 15:15 Sodium Chloride 0.9% [Normal Saline] 1,000 ml IV ASDIRECTED 10/10/18 17:00 Potassium Chloride 20 meq Lidocaine 1% [Xylocaine 1%] 2 ml Sodium Chloride 0.9 % [Normal Saline] 100 ml IV ONETIME 10/10/18 20:00 Iron Sucrose Complex [Venofer] 500 mg Sodium Chloride 0.9% [Normal Saline] 250 ml IV ONETIME
[2018-10-10] MEDS ORDERED: Potassium Chloride 20 MEQ, Lidocaine 1% 2 ML in Sodium Chloride 0.9% 100 ML IV ONE (17:00)
--- NOTE | 2018-10-10 18:17 | PCM.HP ---
H&P History of Present Illness - General Date of Service: 10/10/18 Admit Problem/Dx: Admission Diagnosis/Problem Admission Diagnosis/Problem Weakness Source of Information: Patient, Family, Provider History Limitations: Reports: No Limitations - History of Present Illness Initial Comments - Free Text/Narative: CC: I fall down when I try to stand up HPI: Nasir presents to the emergency room today with weakness and increased difficulty with his restless leg syndrome. He reports feeling fairly well yesterday but first noticed some weakness yesterday afternoon. He also noticed increased difficulty with his restless legs. His balance was a little off but in general he was still able to function pretty well. He woke up this morning with worsening of the weakness. He reported difficulty with newly falling over when he tried to sit up or stand up. He felt like his arms were weaker than usual and little bit clumsy. For example he dropped several things like a pen and a glass of water. He reports a mild generalized headache that started this morning. He had episodes of blurry vision and double vision today. He has not had any fevers. No complaints of nausea, vomiting or diarrhea. No change in bladder habits. No muscle aches or joint aches that are out of the ordinary. Most recent medication changes were about 3 weeks ago. No obvious sick contacts or travel. Workup in the emergency room revealed hypokalemia and low iron as well as elevations of C-reactive protein and sedimentation rate on the laboratory studies. Chest x-ray was clear and a head CT was unremarkable. Patient was too weak to be safe for discharge to home. He was admitted for optimization of electrolytes, iron administration and physical therapy. Right Foot Pain Score (Numeric/FACES): 5 - Related Data Allergies/Adverse Reactions: Allergies Allergy/AdvReac Type Severity Reaction Status Date / Time codeine AdvReac Nausea and Verified 10/10/18 13:15 Vomiting morphine AdvReac Headache Verified 10/10/18 13:15 foam tape AdvReac Blisters Uncoded 06/25/17 20:43 Home Medications: Home Meds Aspirin [Low Dose Aspirin EC] 81 mg PO DAILY 11/14/13 [History] Calcium Carb/Vit D3/Minerals [Hm Calcium 600 mg-Vit D Tab] 1 tab PO BID [History] Cholecalciferol (Vitamin D3) [D3-2000] 2,000 unit PO DAILY 11/14/13 [History] ClonazePAM [KlonoPIN] 0.5 mg PO BEDTIME 11/14/13 [History] Cyanocobalamin (Vitamin B-12) [Vitamin B-12] 1,000 mcg PO DAILY 11/14/13 [ History] Diphenoxylate HCl/Atropine [Diphenoxylate-Atrop 2.5-0.025] 1 each PO ASDIRECTED PRN 11/14/13 [History] Multivitamin [Multi-Vitamin Daily] 1 tab PO DAILY 11/14/13 [History] [place]-3 Fatty Acids [[place]-3] 1,000 mg PO BID 11/14/13 [History] Pantoprazole Sodium 80 mg PO DAILY 11/14/13 [History] SUMAtriptan Succinate [Imitrex] 50 mg PO ASDIRECTED PRN 11/14/13 [History] atorvaSTATin [Lipitor] 40 mg PO BEDTIME 11/14/13 [History] Albuterol Sulfate [Proair Hfa] 2 puff INH Q6H PRN 01/14/16 [History] Finasteride [Proscar] 5 mg PO DAILY 01/14/16 [History] Nitroglycerin 0.4 mg SL ASDIRECTED PRN 01/14/16 [History] metFORMIN [Glucophage] 500 mg PO DAILY 01/14/16 [History] Ferrous Gluconate 324 mg PO BID 08/28/16 [History] Lidocaine 2% [Xylocaine 2% Jelly] 1 applic TOP ASDIRECTED 08/28/16 [History] Apixaban [Eliquis] 5 mg PO BID 06/19/17 [History] Diltiazem [Dilacor XR] 1 tab PO BID 06/19/17 [History] Baclofen 5 mg PO TID 10/10/18 [History] Furosemide 80 mg PO DAILY 10/10/18 [History] Potassium Chloride 10 meq PO DAILY 10/10/18 [History] Pregabalin [Lyrica] 100 mg PO TID 10/10/18 [History] rOPINIRole [Requip] 2 mg PO BEDTIME 10/10/18 [History] traMADol HCl [Tramadol HCl] 50 mg PO Q6H PRN 10/10/18 [History] Past Medical History HEENT History: Reports: Impaired Vision Cardiovascular History: Reports: High Cholesterol, SOB on Exertion, Other (See Below) Other Cardiovascular History: recent episode of a fib Apr 2017. Respiratory History: Reports: Asthma, COPD Gastrointestinal History: Reports: GERD, Hemorrhoids Genitourinary History: Reports: Prostate Disorder, Other (See Below) Other Genitourinary History: self cath Musculoskeletal History: Reports: Arthritis, Back Pain, Chronic, Fracture, Neck Pain, Chronic, Osteoarthritis, Other (See Below) Other Musculoskeletal History: L hip pain Neurological History: Reports: Migraines, Neuropathy, Diabetic Endocrine/Metabolic History: Reports: Diabetes, Type II, Obesity/BMI 30+, Vitamin D Deficiency Hematologic History: Reports: Blood Transfusion(s), Iron Deficiency Dermatologic History: Reports: None - Infectious Disease History Infectious Disease History: Reports: Chicken Pox, Measles, Shingles - Past Surgical History GI Surgical History: Reports: Appendectomy, Cholecystectomy, Colonoscopy, EGD, Hernia, Abdominal, Hernia, Inguinal, Hernia Repair/Other Male Surgical History: Reports: Prostate Biopsy, Prostatectomy, Vasectomy Neurological Surgical History: Reports: C-Spine, Spinal Fusion, Thoracic Spine, Other (See Below) Other Neurological Surgeries/Procedures: T11 to S1 Musculoskeletal Surgical History: Reports: Arthroscopic Procedure, Carpal Tunnel , Knee Replacement, Shoulder Surgery Dermatological Surgical History: Reports: Skin Biopsy Social & Family History - Family History Cardiac: Reports: Heart Failure - Tobacco Use Smoking Status *Q: Never Smoker - Caffeine Use Caffeine Use: Reports: Coffee Other Caffeine Use: 1x/wk - Alcohol Use Alcohol Use History: No - Recreational Drug Use Recreational Drug Use: No H&P Review of Systems - Review of Systems: Review Of Systems: See Below Free Text/Narrative: A complete 12 point review of systems was obtained. Pertinent positives and negatives are noted in the history of present illness. All other systems were reviewed and were negative except as noted. Exam - Exam Exam: See Below - Vital Signs Vital Signs: Last Vital Signs Temp 36.6 C 10/10/18 13:16 Pulse 68 10/10/18 17:51 Resp 14 10/10/18 17:51 BP 115/38 L 10/10/18 17:51 Pulse Ox 95 10/10/18 16:42 Weight: 97.976 kg - Exam Quality Assessment: No: Supplemental Oxygen General: Alert, Oriented, Cooperative. No: Mild Distress HEENT: PERRLA, Conjunctiva Clear, Mucosa Moist & [place]. No: Scleral Icterus Neck: Supple, Trachea Midline. No: Lymphadenopathy Lungs: Clear to Auscultation, Normal Respiratory Effort Cardiovascular: Regular Rate, Regular Rhythm. No: Systolic Murmur GI/Abdominal Exam: Normal Bowel Sounds, Soft, Non-Tender, No Distention Extremities: Pedal Edema (mild right ankle ). No: Joint Swelling, Increased Warmth Peripheral Pulses: 2+: Dorsalis Pedis (L), Dorsalis Pedis (R) Skin: Warm, Dry Neuro Extensive - Mental Status: Alert, Oriented x3, Nl Response to Commands Neuro Extensive - Motor, Sensory, Reflexes: CN II-XII Intact, Abnormal Motor ( bilat upper ext with 4+/5 at bicep, tricep and wrist. Hands strong and symmetric. Legs 5/5 and symmetric at hip flexor, knee ext and flexion, dorsiflex and plantar flex ), Other (restless legs present ). No: Dysarthria, Tremor DTR: 0: Bicep (L), Bicep (R), Patella (L), Patella (R) Psychiatric: Alert, Normal Affect, Normal Mood - Patient Data Lab Results Last 24 hrs: Laboratory Results - last 24 hr 10/10/18 10/10/18 10/10/18 Range/Units 13:26 13:48 13:48 WBC 10.8 (4.5-11.0) K/uL RBC 3.84 L (4.30-5.90) M/uL Hgb 11.6 L (12.0-15.0) g/dL Hct 36.7 L (40.0-54.0) % MCV 96 (80-98) fL MCH 30 (27-31) pg MCHC 32 (32-36) % Plt Count 262 (150-400) K/uL Neut % (Auto) 61 (36-66) % Lymph % (Auto) 27 (24-44) % [place] % (Auto) 10 H (2-6) % Eos % (Auto) 2 (2-4) % Baso % (Auto) 1 (0-1) % ESR (0-20) mm/hr Sodium 140 (140-148) mmol/L Potassium 3.3 L (3.6-5.2) mmol/L Chloride 99 L (100-108) mmol/L Carbon Dioxide 30 (21-32) mmol/L Anion Gap 14.3 H (5.0-14.0) mmol/L BUN 13 (7-18) mg/dL Creatinine 1.3 (0.8-1.3) mg/dL Est Cr Clr Drug Dosing 39.53 mL/min Estimated GFR (MDRD) 53 L (>60) Glucose 125 H (74-106) mg/dL Lactic Acid (0.4-2.0) mmol/L Calcium 8.6 (8.5-10.1) mg/dL Magnesium (1.8-2.4) mg/dL Iron 18 L (65-175) ug/dL TIBC 246 L (250-450) ug/dl % Saturation 7 L (20-55) % Total Bilirubin 0.4 (0.2-1.0) mg/dL AST 18 (15-37) U/L ALT 21 (12-78) U/L Alkaline Phosphatase 140 H (46-116) U/L Troponin I < 0.017 (0.000-0.056) ng/mL C-Reactive Protein (0.0-0.3) mg/dL Total Protein 7.6 (6.4-8.2) g/dL Albumin 3.0 L (3.4-5.0) g/dL Globulin 4.6 H (2.3-3.5) g/dL Albumin/Globulin Ratio 0.7 L (1.2-2.2) Lipase (73-393) U/L Vitamin B12 (193-986) pg/ml Urine Color Urine Appearance Urine pH (4.5-8.0) Ur Specific [place] (1.008-1.030) Urine Protein (NEGATIVE) mg/dL Urine Glucose (UA) (NEGATIVE) mg/dL Urine Ketones (NEGATIVE) mg/dL Urine Occult Blood (NEGATIVE) Urine Nitrite (NEGAITVE) Urine Bilirubin (NEGATIVE) Urine Urobilinogen (NORMAL) mg/dL Ur Leukocyte Esterase (NEGATIVE) Urine RBC (0-5) Urine WBC (0-5) Ur Epithelial Cells Amorphous Sediment Urine Bacteria Urine Mucus 10/10/18 10/10/18 10/10/18 Range/Units 13:48 13:48 13:48 WBC (4.5-11.0) K/uL RBC (4.30-5.90) M/uL Hgb (12.0-15.0) g/dL Hct (40.0-54.0) % MCV (80-98) fL MCH (27-31) pg MCHC (32-36) % Plt Count (150-400) K/uL Neut % (Auto) (36-66) % Lymph % (Auto) (24-44) % [place] % (Auto) (2-6) % Eos % (Auto) (2-4) % Baso % (Auto) (0-1) % ESR 58 H (0-20) mm/hr Sodium (140-148) mmol/L Potassium (3.6-5.2) mmol/L Chloride (100-108) mmol/L Carbon Dioxide (21-32) mmol/L Anion Gap (5.0-14.0) mmol/L BUN (7-18) mg/dL Creatinine (0.8-1.3) mg/dL Est Cr Clr Drug Dosing mL/min Estimated GFR (MDRD) (>60) Glucose (74-106) mg/dL Lactic Acid 2.2 H (0.4-2.0) mmol/L Calcium (8.5-10.1) mg/dL Magnesium (1.8-2.4) mg/dL Iron (65-175) ug/dL TIBC (250-450) ug/dl % Saturation (20-55) % Total Bilirubin (0.2-1.0) mg/dL AST (15-37) U/L ALT (12-78) U/L Alkaline Phosphatase (46-116) U/L Troponin I (0.000-0.056) ng/mL C-Reactive Protein 6.50 H (0.0-0.3) mg/dL Total Protein (6.4-8.2) g/dL Albumin (3.4-5.0) g/dL Globulin (2.3-3.5) g/dL Albumin/Globulin Ratio (1.2-2.2) Lipase 56 L (73-393) U/L Vitamin B12 2787 H (193-986) pg/ml Urine Color Urine Appearance Urine pH (4.5-8.0) Ur Specific [place] (1.008-1.030) Urine Protein (NEGATIVE) mg/dL Urine Glucose (UA) (NEGATIVE) mg/dL Urine Ketones (NEGATIVE) mg/dL Urine Occult Blood (NEGATIVE) Urine Nitrite (NEGAITVE) Urine Bilirubin (NEGATIVE) Urine Urobilinogen (NORMAL) mg/dL Ur Leukocyte Esterase (NEGATIVE) Urine RBC (0-5) Urine WBC (0-5) Ur Epithelial Cells Amorphous Sediment Urine Bacteria Urine Mucus 10/10/18 10/10/18 Range/Units 13:49 15:55 WBC (4.5-11.0) K/uL RBC (4.30-5.90) M/uL Hgb (12.0-15.0) g/dL Hct (40.0-54.0) % MCV (80-98) fL MCH (27-31) pg MCHC (32-36) % Plt Count (150-400) K/uL Neut % (Auto) (36-66) % Lymph % (Auto) (24-44) % [place] % (Auto) (2-6) % Eos % (Auto) (2-4) % Baso % (Auto) (0-1) % ESR (0-20) mm/hr Sodium (140-148) mmol/L Potassium (3.6-5.2) mmol/L Chloride (100-108) mmol/L Carbon Dioxide (21-32) mmol/L Anion Gap (5.0-14.0) mmol/L BUN (7-18) mg/dL Creatinine (0.8-1.3) mg/dL Est Cr Clr Drug Dosing mL/min Estimated GFR (MDRD) (>60) Glucose (74-106) mg/dL Lactic Acid (0.4-2.0) mmol/L Calcium (8.5-10.1) mg/dL Magnesium 2.0 (1.8-2.4) mg/dL Iron (65-175) ug/dL TIBC (250-450) ug/dl % Saturation (20-55) % Total Bilirubin (0.2-1.0) mg/dL AST (15-37) U/L ALT (12-78) U/L Alkaline Phosphatase (46-116) U/L Troponin I (0.000-0.056) ng/mL C-Reactive Protein (0.0-0.3) mg/dL Total Protein (6.4-8.2) g/dL Albumin (3.4-5.0) g/dL Globulin (2.3-3.5) g/dL Albumin/Globulin Ratio (1.2-2.2) Lipase (73-393) U/L Vitamin B12 (193-986) pg/ml Urine Color Yellow Urine Appearance Clear Urine pH 5.0 (4.5-8.0) Ur Specific [place] 1.015 (1.008-1.030) Urine Protein Negative (NEGATIVE) mg/dL Urine Glucose (UA) Normal (NEGATIVE) mg/dL Urine Ketones Negative (NEGATIVE) mg/dL Urine Occult Blood Moderate (NEGATIVE) Urine Nitrite Negative (NEGAITVE) Urine Bilirubin Negative (NEGATIVE) Urine Urobilinogen Normal (NORMAL) mg/dL Ur Leukocyte Esterase Small (NEGATIVE) Urine RBC 0-5 (0-5) Urine WBC 0-5 (0-5) Ur Epithelial Cells Not seen Amorphous Sediment Not seen Urine Bacteria Few Urine Mucus Few Result Diagrams: 10/10/18 13:48 10/10/18 13:48 Imaging Impressions Last 24 hrs: Chest x-ray - images personally reviewed - lungs are clear with no mass, infiltrate or effusion. Heart size is normal. Head CT - images personally reviewed - no evidence for mass, stroke, blood collection. He has mild generalized atrophy. EKG INTERPRETATION EKG Date: 10/10/18 Rhythm: NSR Rate (Beats/Min): 80 [place]: RAD-Right [place] Deviation P-Wave: Present QRS: RBBB ST-T: Normal QT: Normal Comparison: No Change (Compared to June 2017) *Q Meaningful Use (ADM) - VTE Risk Assess *Q Each Risk Factor Represents 1 Point: Obesity ( BMI > 25 kg/m2) Total Score 1 Point Risk Factors: 1 Each Risk Factor Represents 2 Points: Malignancy (present or previous) Total Score 2 Point Risk Factors: 2 Each Risk Factor Represents 3 Points: Age 75 Years or Greater Total Score 3 Point Risk Factors: 3 Each Risk Factor Represents 5 Points: None Total Score 5 Point Risk Factors: 0 Venous Thromboembolism Risk Factor Score *Q: 6 Problem List Initiated/Reviewed/Updated: Yes Orders Last 24hrs: Active Orders 24 hr Category Date Time Status Patient Status Manage Transfer [TRANSFER] Routine ADT 10/10/18 18:07 Active Cardiac Monitoring [RC] .As Directed Care 10/10/18 13:25 Active EKG Documentation Completion [RC] ASDIRECTED Care 10/10/18 13:26 Active Peripheral IV Care [RC] . DIRECTED Care 10/10/18 13:26 Active Head wo Cont [CT] Stat Exams 10/10/18 17:20 Taken CULTURE BLOOD [BC] Urgent Lab 10/10/18 13:48 Received CULTURE BLOOD [BC] Urgent Lab 10/10/18 13:55 Received CULTURE URINE [RM] Stat Lab 10/10/18 15:08 Received Iron Sucrose Complex [Venofer] 500 mg Med 10/10/18 20:00 Active Sodium Chloride 0.9% [Normal Saline] 250 ml IV ONETIME Potassium Chloride 20 meq Med 10/10/18 17:00 Active Lidocaine 1% [Xylocaine 1%] 2 ml Sodium Chloride 0.9% [Normal Saline] 100 ml IV ONETIME Sodium Chloride 0.9% [Normal Saline] 1,000 ml Med 10/10/18 15:15 Active IV ASDIRECTED Sodium Chloride 0.9% [Saline Flush] Med 10/10/18 13:26 Active 10 ml FLUSH ASDIRECTED PRN Blood Culture x2 Reflex Set [OM.PC] Urgent Oth 10/10/18 13:26 Ordered Peripheral IV Insertion Adult [OM.PC] Urgent Oth 10/10/18 13:25 Ordered Resuscitation Status Routine Resus Stat 10/10/18 18:09 Ordered EKG 12 Lead [EK] Routine Ther 10/10/18 13:25 Ordered Medication Orders Sodium Chloride (Normal Saline) 1,000 mls @ 500 mls/hr IV ASDIRECTED [place] Last Admin: 10/10/18 15:10 Dose: 500 mls/hr Potassium Chloride 20 meq/Lidocaine HCl 2 ml/ Sodium Chloride 112 mls @ 56 mls/ hr IV ONETIME ONE Stop: 10/10/18 18:59 Iron Sucrose 500 mg/ Sodium (Chloride) 275 mls @ 62.5 mls/hr IV ONETIME ONE Stop: 10/11/18 00:23 Sodium Chloride (Saline Flush) 10 ml FLUSH ASDIRECTED PRN PRN Reason: Keep Vein Open Last Admin: 10/10/18 13:57 Dose: 10 ml Assessment/Plan Comment:: ASSESSMENT AND PLAN - Generalized weakness - no obvious cause at this time but I do suspect subacute dehydration with more acute worsening. Examination is nonfocal. Head CT was unremarkable. No strong evidence for infection. He does have some elevated inflammatory markers but no obvious localizing symptoms. Potassium is mildly decreased. -IV fluids overnight -Hold diuretic -Supplement potassium -Physical therapy in the morning Hypokalemia - mild at this time. Probably related to his chronic diuretic use. He has received 40 mEq in the emergency room. -Gentle supplementation overnight and recheck in the morning Iron deficiency anemia - anemia level is very mild but his iron is very low. A dose of IV iron has been ordered in the emergency room. He has been on a twice- daily oral supplement. -Complete IV infusion of iron -Continue supplement Paroxysmal atrial fibrillation - currently appears to be in sinus rhythm. He is chronically anticoagulated. -Continue calcium channel mirlande and DOAC Chronic back pain - stable at this time. He is on a multitude of medications that could potentially make him dizzy but I would not think they would give him weakness like this. -Continue home medications Type 2 diabetes mellitus - on only oral medications at this time. -Continue metformin Maintenance issues - - DVT prophylaxis - apixaban - GI prophylaxis - continue PPI - Nutrition - diabetic diet - [place] catheter - not indicated CODE STATUS - full code Admission justification - patient will be referred observation status for optimizing electrolytes and physical therapy for his generalized weakness Disposition - I would anticipate discharge home tomorrow Jaun Harper M.D.
--- NOTE | 2018-10-10 18:26 | CRLCT ---
INDICATION: Weakness and fall with head trauma. COMPARISON: 09/22/2018 TECHNIQUE: CT examination of the head was performed with 3 mm thick axial sections without intravenous contrast. Images were obtained from the vertex of the skull through the skull base, and I examined the images with the brain and bone windows. Please note that all CT scans at this facility use dose modulation, iterative reconstruction, and/or weight-based dosing when appropriate to reduce radiation dose to as low as reasonably achievable. FINDINGS: : The previously seen area of scalp contusion in the left high mid parietal region has resolved, leaving a small area of scar. There is no change in the scarring of the right high posterior parietal scalp. The brain is normal in appearance for the patient`s age on today`s study, with no sign of mass lesion, mass effect, hemorrhage, or edema. There continues to be moderate dilatation of the ventricles and sulci representing moderate, age-appropriate atrophy. The visualized portions of the orbits are normal in appearance. The visualized portions of the paranasal sinuses and mastoids are clear. The osseous structures are normal in their appearance with no sign of abnormality in the skull base or calvarium. IMPRESSION: Normal noncontrast CT of the head for the patient`s age. Stable moderate, age-appropriate atrophy. Resolution of the previously seen left high mid parietal scalp hematoma. Please note that all CT scans at this facility use dose modulation, iterative reconstruction, and/or weight-based dosing when appropriate to reduce radiation dose to as low as reasonably achievable. Dictated by Jamir Ledesma MD @ Oct 10 2018 6:19PM Signed by Dr. Jamir Ledesma @ Oct 10 2018 6:24PM
[2018-10-10] MEDS ORDERED: Ondansetron 4 MG/2 ML SDV IV PRN (18:59)
[2018-10-10] MEDS ORDERED: TRAMADOL HCL 50 MG PO PRN (18:59)
[2018-10-10] MEDS ORDERED: Acetaminophen 325 MG Tab PO PRN (18:59)
[2018-10-10] MEDS ORDERED: Ondansetron 4 MG Tab.DIS PO PRN (18:59)
[2018-10-10] MEDS ORDERED: NS + KCl 20mEq/L 1,000 ML IV SCH (18:59)
[2018-10-10] MEDS ORDERED: Magnesium Hydroxide 400 MG/5 ML Susp 30 ML Cup PO PRN (18:59)
[2018-10-10] MEDS ORDERED: Non-Formulary Medication 1 Each (Pregabalin [Lyrica] 100 MG) PO SCH (21:00)
[2018-10-10] MEDS ORDERED: ATORVASTATIN 40 MG PO SCH (23:00)
[2018-10-10] MEDS ORDERED: CLONAZEPAM 1 MG PO SCH (23:15)
[2018-10-10] MEDS ORDERED: REQUIP 2 MG PO SCH (23:15)
[2018-10-11] MEDS: ELIQUIS 5 MG PO SCH ×2 (00:17→09:36)
[2018-10-11] MEDS: BACLOFEN 10 MG PO SCH ×2 (00:18→09:36)
[2018-10-11] MEDS: DILTIAZEM 120 MG PO SCH ×2 (00:19→09:36)
[2018-10-11] MEDS: FERROUS GLUCONATE 324 MG PO SCH ×2 (00:20→09:36)
[2018-10-11] MEDS ORDERED: traMADol 50 MG Tab PO PRN (07:26)
[2018-10-11] MEDS ORDERED: Non-Formulary Medication 1 Each (Metformin [Glucophage] 500 MG) PO SCH (09:00)
[2018-10-11] MEDS ORDERED: Aspirin 81 MG Tab.EC PO SCH (09:00)
[2018-10-11] MEDS ORDERED: Non-Formulary Medication 1 Each (Aspirin [Low Dose Aspirin Ec] 81 MG) PO SCH (09:00)
[2018-10-11] MEDS ORDERED: Non-Formulary Medication 1 Each (Cyanocobalamin (Vitamin B-12) [Vitamin B-12] 1,000 MCG) PO SCH (09:00)
[2018-10-11] MEDS ORDERED: Non-Formulary Medication 1 Each (Finasteride [Proscar] 5 MG) PO SCH (09:00)
[2018-10-11] MEDS ORDERED: PANTOPRAZOLE SODIUM 80 MG PO SCH (09:00)
[2018-10-11] MEDS ORDERED: Cyanocobalamin (Vitamin B12) 1,000 MCG Tab PO SCH (09:00)
[2018-10-11] MEDS ORDERED: ClonazePAM 0.5 MG Tab PO SCH (09:47)
[2018-10-11] MEDS ORDERED: FINASTERIDE 5 MG PO SCH (10:00)
[2018-10-11] MEDS ORDERED: PANTOPRAZOLE 40 MG PO SCH (10:00)
[2018-10-11] MEDS ORDERED: METFORMIN 500 MG PO SCH (10:00)
--- NOTE | 2018-10-11 10:05 | PCM.DCSUM1 ---
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 He was admitted for management of hypokalemia, generalized weakness and presumed dehydration with chronic diuretic therapy. Diagnosis: Stroke: No - Discharge Data Discharge Date: 10/11/18 Discharge Disposition: Home, Self-Care 01 Condition: Good - Discharge Diagnosis/Problem(s) (1) Generalized weakness SNOMED Code(s): 92410859 ICD Code: R53.1 - WEAKNESS Status: Acute (2) Hypokalemia SNOMED Code(s): 34954294 ICD Code: E87.6 - HYPOKALEMIA Status: Acute Priority: High (3) Restless legs syndrome SNOMED Code(s): 36570241 ICD Code: G25.81 - RESTLESS LEGS SYNDROME Status: Acute (4) Iron deficiency SNOMED Code(s): 31303127 ICD Code: E61.1 - IRON DEFICIENCY Status: Acute (5) Type 2 diabetes mellitus SNOMED Code(s): 08686246 ICD Code: E11.9 - TYPE 2 DIABETES MELLITUS WITHOUT COMPLICATIONS Status: Chronic Qualifiers: Diabetes mellitus residential insulin use: without coil winder strap use Diabetes mellitus complication status: with neurologic complications Diabetes mellitus complication detail: with polyneuropathy Qualified Code(s): E11.42 - Type 2 diabetes mellitus with diabetic polyneuropathy - Patient Summary/Data Consults: Consultations 10/11/18 07:00 PT Evaluation and Treatment [CONS] Routine Please Evaluate and Treat. PT Reason for Consult: Strengthening This query below is only for informational purposes and is not editable. Hospital Course: Nasir presented to the emergency room with generalized weakness, double vision and worsening of his chronic restless leg syndrome. Extensive workup in the emergency room did not reveal evidence for infection though he did have elevated inflammatory markers. Potassium was mildly decreased and kidney function was mildly decreased from baseline. His iron level was quite low. His white blood cell count was normal. Chest x-ray was clear. Urine sample did not suggest infection. Head CT was unremarkable as well. He was admitted to the hospital for hydration and optimization of electrolytes with suspected dehydration of the setting of chronic diuretic use. He received potassium supplementation as well as IV fluids overnight. He did receive a dose of IV iron to help with his chronic iron deficiency anemia that was not improving despite his outpatient supplementation. Overnight there were no acute issues. By the morning after admission his potassium level has normalized. Kidney function is back to baseline with a GFR greater than 60. Symptomatically he is feeling nearly back to normal. He has been up and walking around with only standby assist. He has not had any recurrence of the double vision or dizziness. He feels steady on his feet at this time and feels like the strength in his arms has returned to normal. He reports he has been utilizing his furosemide to help manage chronic swelling of the right lower extremity. We did fit him for a Larry stocking which he will try to use to help with the swelling rather than the diuretic since it has not been helping much and has apparently caused some difficulty with acute on chronic dehydration. I encouraged him to stop taking his diuretics for a period of time and closely monitor for increasing swelling. No other medication changes were made. He will be following up early next week for blood pressure check and symptom recheck. His blood pressure during the hospital stay has been excellent. - Patient Instructions Diet: Regular Diet as Tolerated Activity: As Tolerated Driving: May Drive Today Showering/Bathing: May Shower Notify Provider of: Fever, Increased Pain Other/Special Instructions: 1. You were in the hospital for management of generalized weakness, dehydration, low potassium and low iron. Your condition has been improving with hydration, potassium supplementation and physical therapy. I would recommend that you stop taking your furosemide (water pill). Try to use the tight-fitting socks to control the swelling of your right ankle. You can monitor for increases in swelling and you may need to be on a very small dose of diuretic but for now I would recommend that we not use any diuretics. 2. Continue your other home medications as previously prescribed. 3. Follow up in one week for a blood pressure recheck and to monitor for stability versus increase in swelling of the ankles . 4. Seekmedical attention if you have fever greater than 101, sudden onset of profound weakness or if you develop severe swelling in one or both ankles. - Discharge Plan *PRESCRIPTION DRUG MONITORING PROGRAM REVIEWED*: Not Applicable *COPY OF PRESCRIPTION DRUG MONITORING REPORT IN PATIENT HORACIO: Not Applicable Home Medications: Home Meds Aspirin [Low Dose Aspirin EC] 81 mg PO DAILY 11/14/13 [History] Calcium Carb/Vit D3/Minerals [Hm Calcium 600 mg-Vit D Tab] 1 tab PO BID [History] Cholecalciferol (Vitamin D3) [D3-2000] 2,000 unit PO DAILY 11/14/13 [History] ClonazePAM [KlonoPIN] 0.5 mg PO BEDTIME 11/14/13 [History] Cyanocobalamin (Vitamin B-12) [Vitamin B-12] 1,000 mcg PO DAILY 11/14/13 [ History] Diphenoxylate HCl/Atropine [Diphenoxylate-Atrop 2.5-0.025] 1 each PO ASDIRECTED PRN 11/14/13 [History] Multivitamin [Multi-Vitamin Daily] 1 tab PO DAILY 11/14/13 [History] Winn-3 Fatty Acids [Winn-3] 1,000 mg PO BID 11/14/13 [History] Pantoprazole Sodium 80 mg PO DAILY 11/14/13 [History] SUMAtriptan Succinate [Imitrex] 50 mg PO ASDIRECTED PRN 11/14/13 [History] atorvaSTATin [Lipitor] 40 mg PO BEDTIME 11/14/13 [History] Albuterol Sulfate [Proair Hfa] 2 puff INH Q6H PRN 01/14/16 [History] Finasteride [Proscar] 5 mg PO DAILY 01/14/16 [History] Nitroglycerin 0.4 mg SL ASDIRECTED PRN 01/14/16 [History] metFORMIN [Glucophage] 500 mg PO DAILY 01/14/16 [History] Ferrous Gluconate 324 mg PO BID 08/28/16 [History] Lidocaine 2% [Xylocaine 2% Jelly] 1 applic TOP ASDIRECTED 08/28/16 [History] Apixaban [Eliquis] 5 mg PO BID 06/19/17 [History] Diltiazem [Dilacor XR] 1 tab PO BID 06/19/17 [History] Baclofen 5 mg PO TID 10/10/18 [History] Potassium Chloride 10 meq PO DAILY 10/10/18 [History] Pregabalin [Lyrica] 100 mg PO TID 10/10/18 [History] rOPINIRole [Requip] 2 mg PO BEDTIME 10/10/18 [History] traMADol HCl [Tramadol HCl] 50 mg PO Q6H PRN 10/10/18 [History] Oxygen Therapy Mode: Room Air Patient Handouts: How to Use Compression Stockings, Rehydration, Adult Referrals: Aaron Dunham MD [Primary Care Provider] - 10/21/18 1:40 pm (1 week - f/u hospital stay for weakness, dehydration) - Discharge Summary/Plan Comment DC Time >30 min.: No - Patient Data Vitals - Most Recent: Last Vital Signs Temp 36.6 C 10/11/18 07:30 Pulse 62 10/11/18 07:30 Resp 18 10/11/18 07:30 BP 107/45 L 10/11/18 07:30 Pulse Ox 94 L 10/11/18 07:30 Weight - Most Recent: 97.976 kg I&O - Last 24 hours: Intake & Output 10/10/18 10/11/18 10/11/18 22:59 06:59 14:59 Intake Total 1539 180 Output Total 800 Balance 739 180 Lab Results - Last 24 hrs: Laboratory Results - last 24 hr 10/10/18 10/10/18 10/10/18 Range/Units 13:26 13:48 13:48 WBC 10.8 (4.5-11.0) K/uL RBC 3.84 L (4.30-5.90) M/uL Hgb 11.6 L (12.0-15.0) g/dL Hct 36.7 L (40.0-54.0) % MCV 96 (80-98) fL MCH 30 (27-31) pg MCHC 32 (32-36) % Plt Count 262 (150-400) K/uL Neut % (Auto) 61 (36-66) % Lymph % (Auto) 27 (24-44) % [place] % (Auto) 10 H (2-6) % Eos % (Auto) 2 (2-4) % Baso % (Auto) 1 (0-1) % ESR (0-20) mm/hr Sodium 140 (140-148) mmol/L Potassium 3.3 L (3.6-5.2) mmol/L Chloride 99 L (100-108) mmol/L Carbon Dioxide 30 (21-32) mmol/L Anion Gap 14.3 H (5.0-14.0) mmol/L BUN 13 (7-18) mg/dL Creatinine 1.3 (0.8-1.3) mg/dL Est Cr Clr Drug Dosing 39.53 mL/min Estimated GFR (MDRD) 53 L (>60) Glucose 125 H (74-106) mg/dL Lactic Acid (0.4-2.0) mmol/L Calcium 8.6 (8.5-10.1) mg/dL Magnesium (1.8-2.4) mg/dL Iron 18 L (65-175) ug/dL TIBC 246 L (250-450) ug/dl % Saturation 7 L (20-55) % Total Bilirubin 0.4 (0.2-1.0) mg/dL AST 18 (15-37) U/L ALT 21 (12-78) U/L Alkaline Phosphatase 140 H (46-116) U/L Troponin I < 0.017 (0.000-0.056) ng/mL C-Reactive Protein (0.0-0.3) mg/dL Total Protein 7.6 (6.4-8.2) g/dL Albumin 3.0 L (3.4-5.0) g/dL Globulin 4.6 H (2.3-3.5) g/dL Albumin/Globulin Ratio 0.7 L (1.2-2.2) Lipase (73-393) U/L Vitamin B12 (193-986) pg/ml Urine Color Urine Appearance Urine pH (4.5-8.0) Ur Specific Chemult (1.008-1.030) Urine Protein (NEGATIVE) mg/dL Urine Glucose (UA) (NEGATIVE) mg/dL Urine Ketones (NEGATIVE) mg/dL Urine Occult Blood (NEGATIVE) Urine Nitrite (NEGAITVE) Urine Bilirubin (NEGATIVE) Urine Urobilinogen (NORMAL) mg/dL Ur Leukocyte Esterase (NEGATIVE) Urine RBC (0-5) Urine WBC (0-5) Ur Epithelial Cells Amorphous Sediment Urine Bacteria Urine Mucus 10/10/18 10/10/18 10/10/18 Range/Units 13:48 13:48 13:48 WBC (4.5-11.0) K/uL RBC (4.30-5.90) M/uL Hgb (12.0-15.0) g/dL Hct (40.0-54.0) % MCV (80-98) fL MCH (27-31) pg MCHC (32-36) % Plt Count (150-400) K/uL Neut % (Auto) (36-66) % Lymph % (Auto) (24-44) % [place] % (Auto) (2-6) % Eos % (Auto) (2-4) % Baso % (Auto) (0-1) % ESR 58 H (0-20) mm/hr Sodium (140-148) mmol/L Potassium (3.6-5.2) mmol/L Chloride (100-108) mmol/L Carbon Dioxide (21-32) mmol/L Anion Gap (5.0-14.0) mmol/L BUN (7-18) mg/dL Creatinine (0.8-1.3) mg/dL Est Cr Clr Drug Dosing mL/min Estimated GFR (MDRD) (>60) Glucose (74-106) mg/dL Lactic Acid 2.2 H (0.4-2.0) mmol/L Calcium (8.5-10.1) mg/dL Magnesium (1.8-2.4) mg/dL Iron (65-175) ug/dL TIBC (250-450) ug/dl % Saturation (20-55) % Total Bilirubin (0.2-1.0) mg/dL AST (15-37) U/L ALT (12-78) U/L Alkaline Phosphatase (46-116) U/L Troponin I (0.000-0.056) ng/mL C-Reactive Protein 6.50 H (0.0-0.3) mg/dL Total Protein (6.4-8.2) g/dL Albumin (3.4-5.0) g/dL Globulin (2.3-3.5) g/dL Albumin/Globulin Ratio (1.2-2.2) Lipase 56 L (73-393) U/L Vitamin B12 2787 H (193-986) pg/ml Urine Color Urine Appearance Urine pH (4.5-8.0) Ur Specific Chemult (1.008-1.030) Urine Protein (NEGATIVE) mg/dL Urine Glucose (UA) (NEGATIVE) mg/dL Urine Ketones (NEGATIVE) mg/dL Urine Occult Blood (NEGATIVE) Urine Nitrite (NEGAITVE) Urine Bilirubin (NEGATIVE) Urine Urobilinogen (NORMAL) mg/dL Ur Leukocyte Esterase (NEGATIVE) Urine RBC (0-5) Urine WBC (0-5) Ur Epithelial Cells Amorphous Sediment Urine Bacteria Urine Mucus 10/10/18 10/10/18 10/11/18 Range/Units 13:49 15:55 05:00 WBC 10.9 (4.5-11.0) K/uL RBC 3.49 L (4.30-5.90) M/uL Hgb 10.7 L (12.0-15.0) g/dL Hct 33.3 L (40.0-54.0) % MCV 95 (80-98) fL MCH 31 (27-31) pg MCHC 32 (32-36) % Plt Count 140 L (150-400) K/uL Neut % (Auto) (36-66) % Lymph % (Auto) (24-44) % [place] % (Auto) (2-6) % Eos % (Auto) (2-4) % Baso % (Auto) (0-1) % ESR (0-20) mm/hr Sodium (140-148) mmol/L Potassium (3.6-5.2) mmol/L Chloride (100-108) mmol/L Carbon Dioxide (21-32) mmol/L Anion Gap (5.0-14.0) mmol/L BUN (7-18) mg/dL Creatinine (0.8-1.3) mg/dL Est Cr Clr Drug Dosing mL/min Estimated GFR (MDRD) (>60) Glucose (74-106) mg/dL Lactic Acid (0.4-2.0) mmol/L Calcium (8.5-10.1) mg/dL Magnesium 2.0 (1.8-2.4) mg/dL Iron (65-175) ug/dL TIBC (250-450) ug/dl % Saturation (20-55) % Total Bilirubin (0.2-1.0) mg/dL AST (15-37) U/L ALT (12-78) U/L Alkaline Phosphatase (46-116) U/L Troponin I (0.000-0.056) ng/mL C-Reactive Protein (0.0-0.3) mg/dL Total Protein (6.4-8.2) g/dL Albumin (3.4-5.0) g/dL Globulin (2.3-3.5) g/dL Albumin/Globulin Ratio (1.2-2.2) Lipase (73-393) U/L Vitamin B12 (193-986) pg/ml Urine Color Yellow Urine Appearance Clear Urine pH 5.0 (4.5-8.0) Ur Specific Chemult 1.015 (1.008-1.030) Urine Protein Negative (NEGATIVE) mg/dL Urine Glucose (UA) Normal (NEGATIVE) mg/dL Urine Ketones Negative (NEGATIVE) mg/dL Urine Occult Blood Moderate (NEGATIVE) Urine Nitrite Negative (NEGAITVE) Urine Bilirubin Negative (NEGATIVE) Urine Urobilinogen Normal (NORMAL) mg/dL Ur Leukocyte Esterase Small (NEGATIVE) Urine RBC 0-5 (0-5) Urine WBC 0-5 (0-5) Ur Epithelial Cells Not seen Amorphous Sediment Not seen Urine Bacteria Few Urine Mucus Few 10/11/18 10/11/18 Range/Units 05:00 05:00 WBC (4.5-11.0) K/uL RBC (4.30-5.90) M/uL Hgb (12.0-15.0) g/dL Hct (40.0-54.0) % MCV (80-98) fL MCH (27-31) pg MCHC (32-36) % Plt Count (150-400) K/uL Neut % (Auto) (36-66) % Lymph % (Auto) (24-44) % [place] % (Auto) (2-6) % Eos % (Auto) (2-4) % Baso % (Auto) (0-1) % ESR (0-20) mm/hr Sodium 142 (140-148) mmol/L Potassium 3.8 (3.6-5.2) mmol/L Chloride 106 (100-108) mmol/L Carbon Dioxide 29 (21-32) mmol/L Anion Gap 6.7 (5.0-14.0) mmol/L BUN 13 (7-18) mg/dL Creatinine 1.1 (0.8-1.3) mg/dL Est Cr Clr Drug Dosing 46.72 mL/min Estimated GFR (MDRD) > 60 (>60) Glucose 118 H (74-106) mg/dL Lactic Acid 1.3 (0.4-2.0) mmol/L Calcium 8.5 (8.5-10.1) mg/dL Magnesium (1.8-2.4) mg/dL Iron (65-175) ug/dL TIBC (250-450) ug/dl % Saturation (20-55) % Total Bilirubin (0.2-1.0) mg/dL AST (15-37) U/L ALT (12-78) U/L Alkaline Phosphatase (46-116) U/L Troponin I (0.000-0.056) ng/mL C-Reactive Protein (0.0-0.3) mg/dL Total Protein (6.4-8.2) g/dL Albumin (3.4-5.0) g/dL Globulin (2.3-3.5) g/dL Albumin/Globulin Ratio (1.2-2.2) Lipase (73-393) U/L Vitamin B12 (193-986) pg/ml Urine Color Urine Appearance Urine pH (4.5-8.0) Ur Specific Chemult (1.008-1.030) Urine Protein (NEGATIVE) mg/dL Urine Glucose (UA) (NEGATIVE) mg/dL Urine Ketones (NEGATIVE) mg/dL Urine Occult Blood (NEGATIVE) Urine Nitrite (NEGAITVE) Urine Bilirubin (NEGATIVE) Urine Urobilinogen (NORMAL) mg/dL Ur Leukocyte Esterase (NEGATIVE) Urine RBC (0-5) Urine WBC (0-5) Ur Epithelial Cells Amorphous Sediment Urine Bacteria Urine Mucus Med Orders - Current: Current Medications Acetaminophen (Tylenol) 650 mg PO Q4H PRN PRN Reason: Pain (Mild 1-3)/fever Aspirin (Halfprin) 81 mg PO DAILY [facility] Last Admin: 10/11/18 09:36 Dose: Not Given Clonazepam (Klonopin) 0.5 mg PO BEDTIME [facility] Cyanocobalamin (Vitamin B12) 1,000 mcg PO DAILY [facility] Last Admin: 10/11/18 09:46 Dose: Not Given Potassium Chloride/Sodium Chloride (Normal Saline With 20 Meq Kcl) 1,000 mls @ 100 mls/hr IV ASDIRECTED [facility] Last Admin: 10/11/18 05:26 Dose: 100 mls/hr Magnesium Hydroxide (Milk Of Magnesia) 30 ml PO Q12H PRN PRN Reason: Constipation Non-Formulary Medication (Pregabalin [Lyrica]) 100 mg PO TID [facility] Ondansetron HCl (Zofran Odt) 4 mg PO Q6H PRN PRN Reason: Nausea able to take PO Ondansetron HCl (Zofran) 4 mg IV Q6H PRN PRN Reason: Nausea/Vomiting Patient's Own MedicationEliquis 5 Mg 1 each PO BID [facility] Last Admin: 10/11/18 09:36 Dose: 1 each Patient's Own Medication Atorvastatin 40 Mg 1 each PO BEDTIME [facility] Last Admin: 10/11/18 00:18 Dose: 1 each Patient's Own MedicationBaclofen 10 Mg 0.5 each PO TID [facility] Last Admin: 10/11/18 09:36 Dose: 0.5 each Patient's Own Medication Diltiazem Er 120 Mg* * 1 each PO BID [facility] Last Admin: 10/11/18 09:36 Dose: 1 each Patient's Own MedicationFerrous Gluconate 324 Mg 1 each PO BIDMEALS [facility] Last Admin: 10/11/18 09:36 Dose: 1 each Patient's Own MedicationRequip 2 Mg 1 each PO BEDTIME [facility] Last Admin: 10/11/18 00:20 Dose: 1 each Finasteride 5mg Tab ((Ptom)) 0 each PO DAILY [facility] Last Admin: 10/11/18 10:03 Dose: 1 each Metformin 500mg Tab ((Ptom)) 0 each PO DAILY [facility] Last Admin: 10/11/18 10:02 Dose: 1 each Pantoprazole 40mg ( (Ptom)) 0 each PO ACBREAKFAST [facility] Last Admin: 10/11/18 10:02 Dose: 1 each Senna/Docusate Sodium (Senna Plus) 1 tab PO BID PRN PRN Reason: Constipation Sodium Chloride (Saline Flush) 10 ml FLUSH ASDIRECTED PRN PRN Reason: Keep Vein Open Last Admin: 10/10/18 13:57 Dose: 10 ml Tramadol HCl (Ultram) 50 mg PO Q6H PRN PRN Reason: PAIN Discontinued Medications Sodium Chloride (Normal Saline) 1,000 mls @ 500 mls/hr IV ASDIRECTED [facility] Last Admin: 10/10/18 15:10 Dose: 500 mls/hr Potassium Chloride 20 meq/Lidocaine HCl 2 ml/ Sodium Chloride 112 mls @ 56 mls/ hr IV ONETIME ONE Stop: 10/10/18 18:59 Last Admin: 10/10/18 18:38 Dose: 56 mls/hr Iron Sucrose 500 mg/ Sodium (Chloride) 275 mls @ 62.5 mls/hr IV ONETIME ONE Stop: 10/11/18 00:23 Last Admin: 10/10/18 22:10 Dose: 62.5 mls/hr Lorazepam (Ativan) 0.5 mg IVPUSH ONETIME ONE Stop: 10/10/18 16:48 Last Admin: 10/10/18 18:36 Dose: 0.5 mg Patient's Own Medication Clonazepam 1 Mg 0.5 each PO BEDTIME [facility] Last Admin: 10/11/18 00:19 Dose: 0.5 each Potassium Chloride (Klor-Con M20) 20 meq PO ONETIME ONE Stop: 10/10/18 16:02 Last Admin: 10/11/18 09:06 Dose: Not Given Sodium Chloride (Normal Saline) 500 ml IV ASDIRECTED [facility] - Exam Quality Assessment: Denies: Supplemental Oxygen General: Reports: Alert, Oriented, Cooperative, No Acute Distress Lungs: Reports: Normal Respiratory Effort Cardiovascular: Reports: Regular Rate, Regular Rhythm GI/Abdominal Exam: Soft, No Distention Extremities: Pedal Edema (mild swelling of right ankle) Psy/Mental Status: Reports: Alert, Normal Affect
[2018-10-11 11:18] VITALS: BP 112/40; PULSE 50
== END 2018-10-11 12:43 | disposition home or self-care (01) ==
LOC: JP.ED 12:35 → JP.MS 18:07
PROVIDERS: ADMIT Internal Medicine; ATTEND Internal Medicine
DX: E87.6 Hypokalemia (principal); G25.81 Restless legs syndrome; E11.40 Type 2 diabetes mellitus with diabetic neuropathy, unspecified; D50.9 Iron deficiency anemia, unspecified; E78.00 Pure hypercholesterolemia, unspecified; J44.9 Chronic obstructive pulmonary disease, unspecified; K21.9 Gastro-esophageal reflux disease without esophagitis; I48.0 Paroxysmal atrial fibrillation; M19.90 Unspecified osteoarthritis, unspecified site; G43.909 Migraine, unspecified, not intractable, without status migrainosus; E55.9 Vitamin D deficiency, unspecified; G89.29 Other chronic pain; M54.9 Dorsalgia, unspecified; R77.0 Abnormality of albumin; N28.9 Disorder of kidney and ureter, unspecified; I87.2 Venous insufficiency (chronic) (peripheral); E66.9 Obesity, unspecified; Z68.34 Body mass index [BMI] 34.0-34.9, adult; Z91.048 Other nonmedicinal substance allergy status; Z88.5 Allergy status to narcotic agent; Z79.01 Long term (current) use of anticoagulants; Z79.82 Long term (current) use of aspirin; Z79.84 Long term (current) use of oral hypoglycemic drugs; Z79.899 Other long term (current) drug therapy
CPT/HCPCS: 36415; 70450; 71046; 80048; 80053; 81001; 82607; 83550; 83605; 83690; 83735; 84484; 85025; 85027; 85651; 86140; 87040; 87086; 93005; 96361; 96365; 96375; 97162; 97530; 99285; J1756; J2001; J2060; J3480; J7030; J7050; 93010; 96360; 96366; 96367; 96376; 99217; 99219; G0378

== ENCOUNTER 2019-06-19 21:37 | Inpatient (IN) | payer MEDICARE, BC ==
--- NOTE | 2019-06-19 22:13 | EDM.PDOC ---
ED HPI GENERAL MEDICAL PROBLEM - General Chief Complaint: General Stated Complaint: MEDICAL [facility] Time Seen by Provider: 06/19/19 23:03 Source of Information: Reports: Patient, EMS, Family History Limitations: Reports: No Limitations - History of Present Illness INITIAL COMMENTS - FREE TEXT/NARRATIVE: pt developed marked shjaking. He was confused. He did have a bp in the 90/60 range. His bs at that time was 101. Later when Sangeetha took the bs it was 148. In the ambulance his bs was 178. He had a 115 on arrival here. He had only had a sandwich today. His was aware that he was very sleepy and he was difficult to arrouse. His nephew checked on him and found him difficult to arrouse. He went into the bathroom and he fell. Onset: Today Duration: Hour(s): Location: Reports: Generalized, Other (pt was confused and he was very shakey. ) Associated Symptoms: Reports: Confusion Treatments [employer]: Reports: See EMS Report - Related Data Allergies Allergy/AdvReac Type Severity Reaction Status Date / Time codeine AdvReac Nausea and Verified 06/19/19 21:49 Vomiting morphine AdvReac Headache Verified 06/19/19 21:49 foam tape AdvReac Blisters Uncoded 06/19/19 21:49 Home Meds: Home Meds Calcium Carb/Vit D3/Minerals [Hm Calcium 600 mg-Vit D Tab] 1 tab PO BID [History] Cholecalciferol (Vitamin D3) [D3-2000] 2,000 unit PO DAILY 11/14/13 [History] ClonazePAM [KlonoPIN] 1 mg PO BEDTIME 11/14/13 [History] Cyanocobalamin (Vitamin B-12) [Vitamin B-12] 1,000 mcg PO DAILY 11/14/13 [ History] Diphenoxylate HCl/Atropine [Diphenoxylate-Atrop 2.5-0.025] 1 each PO ASDIRECTED PRN 11/14/13 [History] Multivitamin [Multi-Vitamin Daily] 1 tab PO DAILY 11/14/13 [History] Pantoprazole Sodium 80 mg PO DAILY 11/14/13 [History] SUMAtriptan Succinate [Imitrex] 50 mg PO ASDIRECTED PRN 11/14/13 [History] atorvaSTATin [Lipitor] 40 mg PO BEDTIME 11/14/13 [History] Albuterol Sulfate [Proair Hfa] 2 puff INH Q6H PRN 01/14/16 [History] Finasteride [Proscar] 5 mg PO DAILY 01/14/16 [History] Nitroglycerin 0.4 mg SL ASDIRECTED PRN 01/14/16 [History] metFORMIN [Glucophage] 500 mg PO DAILY 01/14/16 [History] Ferrous Gluconate 324 mg PO BID 08/28/16 [History] Lidocaine 2% [Xylocaine 2% Jelly] 1 applic TOP ASDIRECTED 08/28/16 [History] Apixaban [Eliquis] 5 mg PO BID 06/19/17 [History] Diltiazem [Dilacor XR] 1 tab PO BID 06/19/17 [History] Potassium Chloride 10 meq PO DAILY 10/10/18 [History] Pregabalin [Lyrica] 100 mg PO TID 10/10/18 [History] rOPINIRole [Requip] 2 mg PO BEDTIME 10/10/18 [History] traMADol HCl [Tramadol HCl] 50 mg PO Q6H PRN 10/10/18 [History] Albuterol [Ventolin HFA] 2 puff IN ASDIRECTED 06/19/19 [History] Fluticasone Propionate [Flovent] 2 puff IN ASDIRECTED 06/19/19 [History] Furosemide [Lasix] 40 mg PO DAILY 06/19/19 [History] Past Medical History HEENT History: Reports: Impaired Vision Cardiovascular History: Reports: High Cholesterol, SOB on Exertion, Other (See Below) Other Cardiovascular History: recent episode of a fib Apr 2017. Respiratory History: Reports: Asthma, COPD Gastrointestinal History: Reports: GERD, Hemorrhoids Genitourinary History: Reports: Prostate Disorder, Other (See Below) Other Genitourinary History: self cath Musculoskeletal History: Reports: Arthritis, Back Pain, Chronic, Fracture, Neck Pain, Chronic, Osteoarthritis, Other (See Below) Other Musculoskeletal History: L hip pain Neurological History: Reports: Migraines, Neuropathy, Diabetic Psychiatric History: Reports: None Endocrine/Metabolic History: Reports: Diabetes, Type II, Obesity/BMI 30+, Vitamin D Deficiency Hematologic History: Reports: Blood Transfusion(s), Iron Deficiency Immunologic History: Reports: None Oncologic (Cancer) History: Reports: None Dermatologic History: Reports: None - Infectious Disease History Infectious Disease History: Reports: Chicken Pox, Measles, Mumps - Past Surgical History GI Surgical History: Reports: Appendectomy, Cholecystectomy, Colonoscopy, EGD, Hernia, Abdominal, Hernia, Inguinal, Hernia Repair/Other Male Surgical History: Reports: Prostate Biopsy, Prostatectomy, Vasectomy Other Neurological Surgeries/Procedures: T11 to S1C5-6 Musculoskeletal Surgical History: Reports: Arthroscopic Procedure, Carpal Tunnel , Knee Replacement, Shoulder Surgery, Other (See Below) Other Musculoskeletal Surgeries/Procedures:: right heel fusion. cervical fusion. lunbar and thoracic fusion Dermatological Surgical History: Reports: Skin Biopsy Social & Family History - Family History Family Medical History: Noncontributory Cardiac: Reports: Heart Failure - Tobacco Use Smoking Status *Q: Former Smoker Used Tobacco, but Quit: Yes Month/Year Tobacco Last Used: 1993 - Caffeine Use Caffeine Use: Reports: Coffee, Tea Other Caffeine Use: 1x/wk - Recreational Drug Use Recreational Drug Use: No ED ROS GENERAL - Review of Systems Review Of Systems: See Below Constitutional: Reports: Other (pt was having a marked shaking episode but he did not have a fever. ) HEENT: Reports: No Symptoms Respiratory: Reports: No Symptoms Cardiovascular: Reports: No Symptoms Endocrine: Reports: Other (bs was good. ) GI/Abdominal: Reports: No Symptoms, Other (pt ate very little today. ) : Reports: No Symptoms Musculoskeletal: Reports: No Symptoms Skin: Reports: No Symptoms Neurological: Reports: No Symptoms ED EXAM, GENERAL - Physical Exam Exam: See Below Free Text/Narrative:: pt arrived with a history of being confused. He ate very little today. His bs was checked twice and he did not have any real low sugars. He did not have a headache. On arrival here he was still vague with his thinking. Exam Limited By: No Limitations General Appearance: Alert, No Apparent Distress, Other (pupils are equal and reactive. 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 The wounds look good and there is no redness. ) Neurological: Alert, Oriented, Other (pt seemes vague with his answers. ) Psychiatric: Normal Affect Course - Vital Signs Last Recorded V/S: Last Vital Signs Temp 35.9 C L 06/19/19 21:57 Pulse 58 L 06/19/19 23:29 Resp 16 06/19/19 21:57 BP 93/25 L 06/19/19 23:29 Pulse Ox 97 06/19/19 23:29 - Orders/Labs/Meds Orders: Active Orders 24 hr Category Date Time Status UA W/MICROSCOPIC [URIN] Urgent Lab 06/19/19 21:47 Ordered Sodium Chloride 0.9% [Normal Saline] 1,000 ml Med 06/19/19 23:00 Active IV ASDIRECTED Medication Orders Sodium Chloride (Normal Saline) 1,000 mls @ 500 mls/hr IV ASDIRECTED [place] Last Admin: 06/19/19 23:23 Dose: 500 mls/hr Labs: Laboratory Tests 06/19/19 06/19/19 Range/Units 21:47 21:47 WBC 5.2 (4.5-11.0) K/uL RBC 3.97 L (4.30-5.90) M/uL Hgb 12.0 (12.0-15.0) g/dL Hct 38.1 L (40.0-54.0) % MCV 96 (80-98) fL MCH 30 (27-31) pg MCHC 32 (32-36) % Plt Count 275 (150-400) K/uL Neut % (Auto) 42 (36-66) % Lymph % (Auto) 42 (24-44) % [place] % (Auto) 12 H (2-6) % Eos % (Auto) 4 (2-4) % Baso % (Auto) 1 (0-1) % Sodium 141 (140-148) mmol/L Potassium 4.3 (3.6-5.2) mmol/L Chloride 103 (100-108) mmol/L Carbon Dioxide 31 (21-32) mmol/L Anion Gap 7.5 (5.0-14.0) mmol/L BUN 20 H D (7-18) mg/dL Creatinine 1.1 (0.8-1.3) mg/dL Est Cr Clr Drug Dosing 45.92 mL/min Estimated GFR (MDRD) > 60 (>60) Glucose 115 H (74-106) mg/dL Calcium 8.9 (8.5-10.1) mg/dL Total Bilirubin 0.4 (0.2-1.0) mg/dL AST 13 L (15-37) U/L ALT 16 (12-78) U/L Alkaline Phosphatase 128 H (46-116) U/L Total Protein 7.2 (6.4-8.2) g/dL Albumin 3.1 L (3.4-5.0) g/dL Globulin 4.1 H (2.3-3.5) g/dL Albumin/Globulin Ratio 0.8 L (1.2-2.2) Meds: Medications Generic Name Dose Route Start Last Admin Trade Name Freq PRN Reason Stop Dose Admin Sodium Chloride 1,000 mls @ 500 mls/hr 06/19/19 23:00 06/19/19 23:23 Normal Saline IV 500 mls/hr ASDIRECTED [place] Administration - Re-Assessments/Exams Free Text/Narrative Re-Assessment/Exam: 06/19/19 23:55 pt had abs of 115. his bp is on the low side. He is alert but vague. A cat scan of the head was normal. He was able to eat a meal. He has fluids erunning. His bp is 93/50. Departure - Departure Time of Disposition: 23:57 Disposition: Admitted As Inpatient 67 Condition: Fair Clinical Impression: Hypotensive episode, Dehydration, Confusion - Discharge Information Referrals: PCP,None [Primary Care Provider] - Forms: ED Department Discharge Care Plan Goals: admit to Dr Smith. Sepsis Event Note - Evaluation Sepsis Screening Result: No Definite Risk - Focused Exam Vital Signs: Vital Signs Temp Pulse Resp BP Pulse Ox 06/19/19 23:29 58 L 93/25 L 97 06/19/19 21:57 35.9 C L 61 16 129/56 L 97 Date Exam was Performed: 06/19/19 Time Exam was Performed: 23:50 - My Orders Last 24 Hours: My Active Orders 06/19/19 21:47 UA W/MICROSCOPIC [URIN] Urgent 06/19/19 23:00 Sodium Chloride 0.9% [Normal Saline] 1,000 ml IV ASDIRECTED - Assessment/Plan Last 24 Hours: My Active Orders 06/19/19 21:47 UA W/MICROSCOPIC [URIN] Urgent 06/19/19 23:00 Sodium Chloride 0.9% [Normal Saline] 1,000 ml IV ASDIRECTED
[2019-06-19] MEDS ORDERED: Sodium Chloride 0.9% 1,000 ML IV SCH (23:00)
--- NOTE | 2019-06-19 23:38 | CRLCT ---
INDICATION: confusion and shakiness CT HEAD WITHOUT CONTRAST TECHNIQUE: Multiple axial CT images were performed through the head without intravenous contrast administration. COMPARISON: 10/10/[address] FINDINGS: No acute intracranial hemorrhage is identified. No extra-axial collections are evident and there is no mass effect or midline shift. There is mild diffuse age-related brain atrophy. Ventricular size and configuration are within normal limits for the patient`s age. Bertrand-white differentiation is within normal limits. There is stable mild patchy hypodensity in the periventricular white matter, a nonspecific finding which most likely reflects chronic small vessel ischemic change. Osseous structures are within normal limits and no fractures are seen. Included portions of the paranasal sinuses and mastoid air cells are normally aerated. IMPRESSION: 1. No acute intracranial abnormality identified. 2. Mild age-related brain atrophy and white matter hypodensity consistent with chronic small vessel ischemic change. CEE REHMAN MD [employer] [employer] Dictated by: Jaime Rehman MD @ 06/19/2019 23:37:42 (Electronically Signed)
--- NOTE | 2019-06-20 00:13 | PCM.HP.2 ---
H&P History of Present Illness - General Date of Service: 06/20/19 Admit Problem/Dx: Confusion Source of Information: Patient, EMS, Family, Other (friends) History Limitations: Reports: Altered Mental Status - History of Present Illness Initial Comments - Free Text/Narative: Patient is an 84yo male with PMH of DMII, a-fib, and COPD who is here for acute confusion. Confusion was stated by nephew and . is of little help with history. She does not offer much information with his conditions or changes. Patient says he's been having weakness on the left side for the last few days and agrees it was probably 3 days ago when it seemed to get worse. Patient is having acute confusion which he says is just because he thought it was wednesday and not wednesday. His does not add any contributory information regarding this, even when she was asked. His nephew says he felt he was confused and shaky earlier. Patient says he was more concerned about the shakiness that didn't resolve even with eating and he was shaking so badly that he could barely hold a glass to drink from it, and required assistance to do so. He also states he fell off the toilet from losing his balance but that he caught himself before hitting his head. His responds with she isn't sure if he hit his head, but she doesn't think so. Onset of Symptoms: Reports: Gradual, Unknown/Unsure Symptom Onset Date: 06/16/19 Duration of Symptoms: Reports: Day(s):, Intermittent Associated Symptoms: Reports: Confusion, Weakness. Denies: Chest Pain, Cough, Diaphoresis, Fever/Chills, Headaches, Loss of Appetite, Malaise, Nausea/Vomiting , Rash, Seizure, Shortness of Breath, Syncope - Related Data Allergies/Adverse Reactions: Allergies Allergy/AdvReac Type Severity Reaction Status Date / Time codeine AdvReac Nausea and Verified 06/19/19 21:49 Vomiting morphine AdvReac Headache Verified 06/19/19 21:49 foam tape AdvReac Blisters Uncoded 06/19/19 21:49 Home Medications: Home Meds Calcium Carb/Vit D3/Minerals [Hm Calcium 600 mg-Vit D Tab] 1 tab PO BID [History] Cholecalciferol (Vitamin D3) [D3-2000] 2,000 unit PO DAILY 11/14/13 [History] ClonazePAM [KlonoPIN] 1 mg PO BEDTIME 11/14/13 [History] Cyanocobalamin (Vitamin B-12) [Vitamin B-12] 1,000 mcg PO DAILY 11/14/13 [ History] Diphenoxylate HCl/Atropine [Diphenoxylate-Atrop 2.5-0.025] 1 each PO ASDIRECTED PRN 11/14/13 [History] Multivitamin [Multi-Vitamin Daily] 1 tab PO DAILY 11/14/13 [History] Pantoprazole Sodium 80 mg PO DAILY 11/14/13 [History] SUMAtriptan Succinate [Imitrex] 50 mg PO ASDIRECTED PRN 11/14/13 [History] atorvaSTATin [Lipitor] 40 mg PO BEDTIME 11/14/13 [History] Albuterol Sulfate [Proair Hfa] 2 puff INH Q6H PRN 01/14/16 [History] Finasteride [Proscar] 5 mg PO DAILY 01/14/16 [History] Nitroglycerin 0.4 mg SL ASDIRECTED PRN 01/14/16 [History] metFORMIN [Glucophage] 500 mg PO DAILY 01/14/16 [History] Ferrous Gluconate 324 mg PO BID 08/28/16 [History] Lidocaine 2% [Xylocaine 2% Jelly] 1 applic TOP ASDIRECTED 08/28/16 [History] Apixaban [Eliquis] 5 mg PO BID 06/19/17 [History] Diltiazem [Dilacor XR] 1 tab PO BID 06/19/17 [History] Potassium Chloride 10 meq PO DAILY 10/10/18 [History] Pregabalin [Lyrica] 100 mg PO TID 10/10/18 [History] rOPINIRole [Requip] 2 mg PO BEDTIME 10/10/18 [History] traMADol HCl [Tramadol HCl] 50 mg PO Q6H PRN 10/10/18 [History] Albuterol [Ventolin HFA] 2 puff IN ASDIRECTED 06/19/19 [History] Fluticasone Propionate [Flovent] 2 puff IN ASDIRECTED 06/19/19 [History] Furosemide [Lasix] 40 mg PO DAILY 06/19/19 [History] Lidocaine 1 patch TOP DAILY 06/20/19 [History] Past Medical History HEENT History: Reports: Impaired Vision Cardiovascular History: Reports: Afib, High Cholesterol, SOB on Exertion, Other (See Below) Other Cardiovascular History: recent episode of a fib Apr 2017. Respiratory History: Reports: Asthma, COPD Gastrointestinal History: Reports: GERD, Hemorrhoids Genitourinary History: Reports: Prostate Disorder, Other (See Below) Other Genitourinary History: self cath Musculoskeletal History: Reports: Arthritis, Back Pain, Chronic, Fracture, Neck Pain, Chronic, Osteoarthritis, Other (See Below) Other Musculoskeletal History: L hip pain Neurological History: Reports: Migraines, Neuropathy, Diabetic Psychiatric History: Reports: None Endocrine/Metabolic History: Reports: Diabetes, Type II, Obesity/BMI 30+, Vitamin D Deficiency Hematologic History: Reports: Blood Transfusion(s), Iron Deficiency Immunologic History: Reports: None Oncologic (Cancer) History: Reports: None Dermatologic History: Reports: None - Infectious Disease History Infectious Disease History: Reports: Chicken Pox, Measles, Mumps - Past Surgical History GI Surgical History: Reports: Appendectomy, Cholecystectomy, Colonoscopy, EGD, Hernia, Abdominal, Hernia, Inguinal, Hernia Repair/Other Male Surgical History: Reports: Prostate Biopsy, Prostatectomy, Vasectomy Other Neurological Surgeries/Procedures: T11 to S1C5-6 Musculoskeletal Surgical History: Reports: Arthroscopic Procedure, Carpal Tunnel , Knee Replacement, Shoulder Surgery, Other (See Below) Other Musculoskeletal Surgeries/Procedures:: right heel fusion. cervical fusion. lunbar and thoracic fusion Dermatological Surgical History: Reports: Skin Biopsy Social & Family History - Family History Family Medical History: Noncontributory Cardiac: Reports: Heart Failure - Tobacco Use Smoking Status *Q: Former Smoker Used Tobacco, but Quit: Yes Month/Year Tobacco Last Used: 1993 - Caffeine Use Caffeine Use: Reports: Coffee, Tea Other Caffeine Use: 1x/wk - Recreational Drug Use Recreational Drug Use: No H&P Review of Systems - Review of Systems: Review Of Systems: See Below General: Denies: Fever, Chills, Fatigue, Night Sweats, Diaphoresis HEENT: Denies: Ear Pain, Eye Pain, Headaches, Hearing Changes, Sinus Congestion , Visual Changes Pulmonary: Denies: Shortness of Breath, Wheezing, Cough, Sputum Cardiovascular: Denies: Chest Pain, Palpitations, Dyspnea on Exertion, Orthopnea , Edema, Syncope Gastrointestinal: Denies: Abdominal Pain, Constipation, Diarrhea, Nausea, Vomiting Genitourinary: Denies: Dysuria, Frequency, Pain, Urgency, Incontinence Musculoskeletal: Reports: Leg Pain (surgery), Foot Pain (surgery). Denies: Neck Pain, Shoulder Pain Skin: Denies: Cyanosis, Jaundice, Mottled, Pallor, Diaphoresis, Rash Psychiatric: Reports: Confusion (mild). Denies: Depression, Mood Lability, Anxiety, Agitation, Cravings Neurological: Reports: Confusion, Numbness (neuropathy), Weakness Hematologic/Lymphatic: Denies: Anemia, Easy Bleeding Exam - Exam Exam: See Below - Vital Signs Vital Signs: Last Vital Signs Temp 35.9 C L 06/19/19 21:57 Pulse 58 L 06/19/19 23:29 Resp 16 06/19/19 21:57 BP 93/25 L 06/19/19 23:29 Pulse Ox 97 06/19/19 23:29 Weight: 97.976 kg - Exam General: Alert, Oriented, Cooperative HEENT: PERRLA, Hearing Intact, Mucosa Moist & [place], Nares Patent, Normal Nasal Septum, Posterior Pharynx Clear, Conjunctiva Clear, EOMI, EACs Clear, TMs Clear Neck: Supple, Trachea Midline, 2 Lungs: Clear to Auscultation, Normal Respiratory Effort Cardiovascular: Regular Rate, Regular Rhythm GI/Abdominal Exam: Normal Bowel Sounds, Soft, Non-Tender, No Organomegaly, No Distention, No Abnormal Bruit, No Mass, Pelvis Stable (Male) Exam: Deferred Rectal (Males) Exam: Deferred Back Exam: Normal Inspection, Full Range of Motion, NT Extremities: Normal Inspection, Normal Range of Motion, Non-Tender, No Pedal Edema, Normal Capillary Refill Skin: Warm, Dry, Intact Neurological: Cranial Nerves Intact, Reflexes Equal Bilateral. No: Strength Equal Bilateral (Left hand 4/5, Right hand 5/5) Neuro Extensive - Mental Status: Alert, Oriented x3, Normal Mood/Affect, Normal Cognition. No: Disorientation to Person, Disorientation to Place, Disorientation to Time Neuro Extensive - Motor, Sensory, Reflexes: CN II-XII Intact Psychiatric: Alert, Normal Affect, Normal Mood - Patient Data Lab Results Last 24 hrs: Laboratory Results - last 24 hr 06/19/19 06/19/19 Range/Units 21:47 21:47 WBC 5.2 (4.5-11.0) K/uL RBC 3.97 L (4.30-5.90) M/uL Hgb 12.0 (12.0-15.0) g/dL Hct 38.1 L (40.0-54.0) % MCV 96 (80-98) fL MCH 30 (27-31) pg MCHC 32 (32-36) % Plt Count 275 (150-400) K/uL Neut % (Auto) 42 (36-66) % Lymph % (Auto) 42 (24-44) % [place] % (Auto) 12 H (2-6) % Eos % (Auto) 4 (2-4) % Baso % (Auto) 1 (0-1) % Sodium 141 (140-148) mmol/L Potassium 4.3 (3.6-5.2) mmol/L Chloride 103 (100-108) mmol/L Carbon Dioxide 31 (21-32) mmol/L Anion Gap 7.5 (5.0-14.0) mmol/L BUN 20 H D (7-18) mg/dL Creatinine 1.1 (0.8-1.3) mg/dL Est Cr Clr Drug Dosing 45.92 mL/min Estimated GFR (MDRD) > 60 (>60) Glucose 115 H (74-106) mg/dL Calcium 8.9 (8.5-10.1) mg/dL Total Bilirubin 0.4 (0.2-1.0) mg/dL AST 13 L (15-37) U/L ALT 16 (12-78) U/L Alkaline Phosphatase 128 H (46-116) U/L Total Protein 7.2 (6.4-8.2) g/dL Albumin 3.1 L (3.4-5.0) g/dL Globulin 4.1 H (2.3-3.5) g/dL Albumin/Globulin Ratio 0.8 L (1.2-2.2) Result Diagrams: 06/19/19 21:47 06/19/19 21:47 EKG INTERPRETATION EKG Date: 06/20/19 Rhythm: NSR Rate (Beats/Min): 55 [place]: Normal P-Wave: Present QRS: Normal QT: Normal EKG Interpretation Comments: Patient likely has 1st degree heart block, bradycardia, but no other concerning changes seen on EKG at this time Sepsis Event Note - Evaluation Sepsis Screening Result: No Definite Risk - Focused Exam Vital Signs: Vital Signs Temp Pulse Resp BP Pulse Ox 06/19/19 23:29 58 L 93/25 L 97 06/19/19 21:57 35.9 C L 61 16 129/56 L 97 Date Exam was Performed: 06/20/19 Time Exam was Performed: 01:27 - Problem List (1) Confusion SNOMED Code(s): 602776035 ICD Code: R41.0 - DISORIENTATION, UNSPECIFIED Status: Acute Priority: High Current Visit: Yes Onset Date: ~06/16/19 Problem Details: Patient is having confusion but is seeming to improve with treatment of IV fluids and glucose. Will hold metformin. As no cause has been found will order blood cultures to R/O possible infection. (2) Dehydration SNOMED Code(s): 07723168 ICD Code: E86.0 - DEHYDRATION Status: Acute Current Visit: Yes Onset Date: ~06/16/19 Problem Details: Patient given 1 L of fluid, patient is able to take fluids by mouth so will DC fluids and cont to monitor fluid status (3) Hypotensive episode SNOMED Code(s): 44047978 ICD Code: I95.9 - HYPOTENSION, UNSPECIFIED Status: Acute Current Visit: Yes Problem Details: Will continue with oral fluid rescusitation as patient has been having confusion (4) Generalized weakness SNOMED Code(s): 23843243 ICD Code: R53.1 - WEAKNESS Status: Acute Current Visit: No Onset Date: ~06/16/19 Problem Details: Patient endorses more weakness over the last 3 days (5) Diabetes type 2, controlled SNOMED Code(s): 44063427, 884517663 ICD Code: E11.9 - TYPE 2 DIABETES MELLITUS WITHOUT COMPLICATIONS Status: Acute Current Visit: Yes Onset Date: Unknown Problem Details: Will hold metformin while in hospital, and will check blood glucose levels, patient is well controlled with low dose metformin, will likely tolerate without Qualifiers: Diabetes mellitus vision specialist insulin use: without penitentiary use Diabetes mellitus complication status: with neurologic complications Diabetes mellitus complication detail: with polyneuropathy Qualified Code(s): E11.42 - Type 2 diabetes mellitus with diabetic polyneuropathy (6) Afib SNOMED Code(s): 66431992 ICD Code: I48.91 - UNSPECIFIED ATRIAL FIBRILLATION Status: Acute Current Visit: Yes Onset Date: Unknown Problem Details: Will continue anticoagulant and dilitazem Qualifiers: Atrial fibrillation type: paroxysmal Qualified Code(s): I48.0 - Paroxysmal atrial fibrillation (7) Anticoagulant long-term use SNOMED Code(s): 015745185 ICD Code: Z79.01 - [facility] (CURRENT) USE OF ANTICOAGULANTS Status: Acute Current Visit: Yes Problem Details: eliquis for Afib (8) Dyslipidemia SNOMED Code(s): 832809877 ICD Code: E78.5 - HYPERLIPIDEMIA, UNSPECIFIED Status: Chronic Current Visit: No Problem Details: will continue atorvastatin (9) Emphysema of lung SNOMED Code(s): 77538525 ICD Code: J43.9 - EMPHYSEMA, UNSPECIFIED Status: Chronic Current Visit: No Problem Details: will order duoneb prn for patient if SOB Qualifiers: Emphysema type: unspecified Qualified Code(s): J43.9 - Emphysema, unspecified Problem List Initiated/Reviewed/Updated: Yes Orders Last 24hrs: Active Orders 24 hr Category Date Time Status EKG Documentation Completion [RC] ASDIRECTED Care 06/19/19 23:54 Active UA W/MICROSCOPIC [URIN] Urgent Lab 06/19/19 21:47 Ordered Sodium Chloride 0.9% [Normal Saline] 1,000 ml Med 06/19/19 23:00 Active IV ASDIRECTED EKG 12 Lead [EK] Routine Ther 06/19/19 23:54 Ordered Medication Orders Sodium Chloride (Normal Saline) 1,000 mls @ 500 mls/hr IV ASDIRECTED [place] Last Admin: 06/19/19 23:23 Dose: 500 mls/hr Resuscitation Status 06/20/19 01:01 Resuscitation Status Routine Resuscitation Status: DNR/DNI-Do Not Resuscitat Abbreviations used in this policy: *Cardiopulmonary Resuscitation (CPR) *Do Not Resuscitate (DNR) *Do Not Intubate (DNI) Code status categories recognized at [facility] 1. Full Code a. If a patient experiences cardiac or respiratory arrest, all resuscitation efforts (including CPR, defibrillation, and airway management) will be performed. b. Patients without a specific code status order other than Full Code will be assumed to be Full Code Status. Intubation CPR Defibrillation YES YES YES 2. DNR a. If there are changes in the patients' vital signs and condition, including respiratory arrest, treatment with medications and intubation, if indicated will be performed. b. If a patient experiences cardiac arrest, resuscitation efforts (CPR and Defibrillation) will not be performed. Intubation CPR Defibrillation YES NO NO 3. DNR/DNI a. If there are changes in the patient's vital signs and condition, including respiratory arrest, treatment with medications and noninvasive airway management/positive pressure ventilation, if indicated will be performed b. If a patient experiences a cardiac arrest, resuscitation efforts ( including CPR, defibrillation and intubation) will not be performed. Intubation CPR Defibrillation NO NO NO 4. DNR/DNI/Comfort Measures a. All medical and nursing interventions will be for the sole purpose of providing pain/symptom management for the patient. b. If a patient experiences a cardiac or respiratory arrest, resuscitation efforts (including CPR, defibrillation and intubation) will not be performed. Intubation CPR Defibrillation No NO NO ACTIVE MED ORDERS Generic Name Dose Route Start Last Admin Trade Name Freq PRN Reason Stop Dose Admin Acetaminophen 650 mg 06/20/19 01:03 Tylenol PO Q4H PRN Pain (Mild 1-3)/fever Albuterol/Ipratropium 3 ml 06/20/19 01:03 Duoneb 3.0-0.5 Mg/3 Ml NEB QID PRN Shortness Of Breath/wheezing Apixaban 5 mg 06/20/19 09:00 Eliquis PO BID [place] Aspirin 81 mg 06/20/19 09:00 Aspirin PO DAILY [place] Atorvastatin Calcium 40 mg 06/20/19 09:00 Lipitor PO DAILY [place] Clonazepam 0.5 mg 06/20/19 01:16 Klonopin PO BEDTIME [place] Diltiazem HCl 120 mg 06/20/19 09:00 Cardizem Cd PO DAILY [place] Finasteride 5 mg 06/20/19 09:00 Proscar PO DAILY [place] Furosemide 40 mg 06/20/19 09:00 Lasix PO DAILY [place] Sodium Chloride 1,000 mls @ 500 mls/hr 06/19/19 23:00 06/19/19 23:23 Normal Saline IV 500 mls/hr ASDIRECTED [place] Administration Promethazine HCl 12.5 mg/ 50.5 mls @ 200 mls/hr 06/20/19 01:03 Sodium Chloride IV Q6H PRN Nausea/Vomiting Nitroglycerin 0.4 mg 06/20/19 01:16 Nitrostat SL Q5M PRN Chest Pain Ondansetron HCl 4 mg 06/20/19 01:03 Zofran Odt PO Q6H PRN Nausea able to take PO Oxycodone/Acetaminophen 2 tab 06/20/19 01:03 Percocet 325-5 Mg PO Q4H PRN Pain (moderate 4-6) Pregabalin 100 mg 06/20/19 01:16 Lyrica PO QID [place] Ropinirole HCl 2 mg 06/20/19 01:16 Requip PO BEDTIME [place] Sumatriptan Succinate 50 mg 06/20/19 01:16 Sumatriptan PO Q2H PRN Headache ACTIVE NON-MED ORDERS/Dietary 06/20/19 Breakfast Consistent Carbohydrate Diet [DIET] Comment: ACTIVE NON-MED ORDERS/Care 06/19/19 23:54 EKG Documentation Completion [RC] ASDIRECTED 06/20/19 01:02 Oxygen Therapy [RC] PRN Maintain SpO2% greater than: 92 Oxygen Therapy Mode, Primary: Nasal Cannula Oxygen Flow Rate (L/min): 2 Oxygen Therapy Mode, Secondary: Nasal Cannula Flow Rate (L/min), Secondary: 4 VTE/DVT Education [RC] Per Unit Routine Vital Signs [RC] Q4H 06/20/19 01:03 Ambulate [RC] QID Antiembolic Devices [RC] .Routine Bedrest Bathroom Privileges [RC] ASDIRECTED Blood Glucose Check, Bedside [RC] WITHMEALSANDBED May Shower [RC] ASDIRECTED Up With Assistance [RC] ASDIRECTED 06/20/19 01:05 Cardiac Monitoring [RC] CONTINUOUS Pulse Oximetry [RC] CONTINUOUS 06/20/19 01:09 RT Aerosol Therapy [RC] ASDIRECTED ACTIVE NON-MED ORDERS/Orderable Interventions Activity, Ambulate Start: 06/20/19 01: 03 Freq: QID Status: Active Protocol: Activity, Bedrest Bathroom Privileges Start: 06/20/19 01: 03 Freq: ASDIRECTED Status: Active Protocol: Activity, Up With Assistance Start: 06/20/19 01: 03 Freq: ASDIRECTED Status: Active Protocol: Antiembolic Devices Start: 06/20/19 01: 03 Text: Status: Active Freq: .Routine Protocol: Blood Glucose Check, Bedside Start: 06/20/19 01: 03 Freq: WITHMEALSANDBED Status: Active Protocol: BGL Cardiac Monitoring/Telemetry Start: 06/20/19 01: 05 Text: Status: Active Freq: CONTINUOUS Protocol: EKG Documentation of Completion Start: 06/19/19 23: 54 Freq: ASDIRECTED Status: Active Protocol: Document 06/20/19 00:28 RMO (Rec: 06/20/19 00:30 RMO [id number]) Education: VTE/DVT Topics Start: 06/20/19 01: 02 Freq: Per Unit Routine Status: Active Protocol: Hygiene, May Shower Start: 06/20/19 01: 03 Freq: ASDIRECTED Status: Active Protocol: Oxygen Therapy Start: 06/20/19 01: 02 Freq: PRN Status: Active Protocol: Pulse Oximetry Start: 06/20/19 01: 05 Freq: CONTINUOUS Status: Active Protocol: RT Aerosol Therapy Assessment Start: 06/20/19 01: 09 Text: Status: Active Freq: ASDIRECTED Protocol: Vital Signs Start: 06/20/19 01: 02 Text: Click to edit a change in frequency and times. Status: Active Freq: Q4H Protocol: VS.TEMP ACTIVE NON-MED ORDERS/Consults 06/20/19 01:03 Consult to Diabetic Nurse Specialist [CONS] Routine Comment: Physician Instructions: Consult to Senior Advocate [CONS] Routine Comment: Physician Instructions: Quantity: PT Evaluation and Treatment [CONS] Routine Please Evaluate and Treat. PT Reason for Consult: Strengthening This query below is only for informational purposes and is not editable. ACTIVE NON-MED ORDERS/Imaging and X-Ray 06/20/19 01:03 Chest 1V Frontal [CR] Stat Is Patient : No Mode Of Transportation: Portable Reason For Exam: Confusion Comment:: ACTIVE NON-MED ORDERS/LAB 06/20/19 01:09 CULTURE BLOOD [BC] Urgent Comment: SRI Source: Blood Specimen: Send someone from the department to collect Specimen Description: Venous Is patient on antibiotics?: No CULTURE BLOOD [BC] Urgent Comment: SRI Source: Blood Specimen: Send someone from the department to collect Specimen Description: Venous - Lab Draw Is patient on antibiotics?: No 06/20/19 07:00 COMPREHENSIVE METABOLIC PN,CMP [CHEM] Routine Comment: Specimen: Send someone from the department to collect 06/20/19 07:03 CBC WITH AUTO DIFF [HEME] Routine Comment: Specimen: Send someone from the department to collect ACTIVE ORDERS/MEDS 06/19/19 23:00 Sodium Chloride 0.9% [Normal Saline] 1,000 ml IV ASDIRECTED 06/20/19 01:03 Acetaminophen [Tylenol] 650 mg PO Q4H PRN Acetaminophen/oxyCODONE [Percocet 325-5 MG] 2 tab PO Q4H PRN Albuterol/Ipratropium [DuoNeb 3.0-0.5 MG/3 ML] 3 ml NEB QID PRN Ondansetron [Zofran ODT] 4 mg PO Q6H PRN Promethazine [Phenergan] 12.5 mg Sodium Chloride 0.9% [Normal Saline] 50 ml IV Q6H 06/20/19 01:16 ClonazePAM [KlonoPIN] 0.5 mg PO BEDTIME Nitroglycerin [Nitrostat] 0.4 mg SL Q5M PRN Pregabalin [Lyrica] 100 mg PO QID SUMAtriptan 50 mg PO Q2H PRN rOPINIRole [Requip] 2 mg PO BEDTIME 06/20/19 09:00 Apixaban [Eliquis] 5 mg PO BID Aspirin 81 mg PO DAILY Diltiazem [Cardizem CD] 120 mg PO DAILY Finasteride [Proscar] 5 mg PO DAILY Furosemide [Lasix] 40 mg PO DAILY atorvaSTATin [Lipitor] 40 mg PO DAILY ACTIVE NON-MED ORDERS/Therapies 06/19/19 23:54 EKG 12 Lead [EK] Routine Is Patient : No Reason For Exam: near syncope ACTIVE NON-MED ORDERS/Transfer 06/20/19 01:13 Patient Status Manage Transfer [TRANSFER] Routine Patient Status: Admit to Inpatient Admission Diagnosis/Problem: Confusion and disorientation Reason for Admit: Confusion Nurse Unit Type: Medical-Surgical Location Preference: med-surg Admitting Physician: Gillian Smith Attending Physician: Jaun Harper Special Instructions: Medicare 96 Hour Certification Statement: This Patient is Admitted for Inpatient Services and is Medically Appropriate and Meets Medical Necessity for Inpatient Admission. I Reasonably Expect the Patient will Require Inpatient Services that Span a Period of Over 2 Midnights. My Rationale for Medically Necessary Inpatient Care will be Found in the Admission History & Physical and Progress Notes. I Reasonably Expect the Patient to be Discharged or Transferred within 96 Hours After Admission to this [facility] Hospital. Provider Acknowledgement/Certification: Gillian Smith ACTIVE NON-MED ORDERS/Other 06/20/19 01:02 Patient Status [ADT] Routine Patient Status: Admit to Inpatient Admission Diagnosis/Problem: Confusion and disorientation Reason for Admit: Confusion Nurse Unit Type: Medical-Surgical Location Preference: med-surg Admitting Physician: Gillian Smith Attending Physician: Jaun Harper Medicare 96 Hour Certification Statement: This Patient is Admitted for Inpatient Services and is Medically Appropriate and Meets Medical Necessity for Inpatient Admission. I Reasonably Expect the Patient will Require Inpatient Services that Span a Period of Over 2 Midnights. My Rationale for Medically Necessary Inpatient Care will be Found in the Admission History & Physical and Progress Notes. I Reasonably Expect the Patient to be Discharged or Transferred within 96 Hours After Admission to this Critical Access Hospital. Provider Acknowledgement/Certification: Gillian Smith Hospital-level of care for over 2 midnights is not expected:: Yes 06/20/19 01:05 Sequential Compression Device [OM.PC] Per Unit Routine Comment: 06/20/19 01:06 Antiembolic Hose [OM.PC] Per Unit Routine Comment: 06/20/19 01:08 Blood Culture x2 Reflex Set [OM.PC] Stat - Mortality Measure Prognosis:: Good
[2019-06-20] MEDS ORDERED: Acetaminophen/oxyCODONE 325-5 MG Tab PO PRN (01:03)
[2019-06-20] MEDS ORDERED: Promethazine 12.5 MG in Sodium Chloride 0.9% 50 ML IV PRN (01:03)
[2019-06-20] MEDS ORDERED: Ondansetron 4 MG Tab.DIS PO PRN (01:03)
[2019-06-20] MEDS ORDERED: Acetaminophen 325 MG Tab PO PRN (01:03)
[2019-06-20] MEDS ORDERED: Albuterol/Ipratropium 3.0-0.5 MG/3 ML Neb Soln NEB PRN (01:03)
[2019-06-20] MEDS ORDERED: Nitroglycerin 0.4 MG Tab.SL SL PRN (01:16)
[2019-06-20] MEDS ORDERED: Pregabalin 100 MG Cap PO SCH ×3 (01:16→21:00)
[2019-06-20] MEDS: ClonazePAM 0.5 MG Tab PO SCH ×2 (01:58→22:03)
[2019-06-20] MEDS: rOPINIRole 1 MG Tab PO SCH ×2 (01:58→21:58)
[2019-06-20] MEDS ORDERED: Diltiazem 120 MG Cap.CD PO SCH ×2 (02:30→09:00)
[2019-06-20] MEDS ORDERED: Furosemide 40 MG Tab PO SCH (09:00)
[2019-06-20] MEDS: Apixaban 5 MG Tab PO SCH ×2 (09:36→21:59)
[2019-06-20] MEDS: Aspirin 81 MG Tab.EC PO SCH (09:36)
[2019-06-20] MEDS: Finasteride 5 MG Tab PO SCH (09:37)
[2019-06-20] MEDS: Pregabalin 100 MG Cap PO SCH ×2 (09:43→13:09)
--- NOTE | 2019-06-20 10:09 | CR ---
CHEST: Portable 06/20/2019 at 1:40 AM CLINICAL HISTORY:Confusion COMPARISON:2019 FINDINGS: Heart size is upper limits of normal. Pulmonary vascularity is mildly cephalized. This is also seen on prior studies. There are some generalized interstitial prominence also present on prior studies. There is patchy pleural parenchymal scarring in both lung bases. IMPRESSION: Generalized interstitial prominence with bibasal pleural-parenchymal scarring is felt to be chronic. Mild vascular cephalization is also similar to prior studies and may be chronic
--- NOTE | 2019-06-20 12:09 | PCM.PN ---
- General Info Date of Service: 06/20/19 Subjective Update: No acute events overnight. Patient reports he feels a little better today but still is weak and somewhat foggy compared to baseline. Blood sugars have been mildly elevated but very acceptable. Appetite is a little better. He was able to transfer from the bed to the chair with assistance. No complaints of cough or shortness of breath. No significant abdominal pain. No fevers. Laboratory studies remain unremarkable. He has been somewhat bradycardic with heart rates in the 40s and 50s overnight. Functional Status: Reports: Pain Controlled, Tolerating Diet - Review of Systems General: Reports: Weakness Pulmonary: Denies: Shortness of Breath Cardiovascular: Denies: Chest Pain Gastrointestinal: Denies: Abdominal Pain - Patient Data Vitals - Most Recent: Last Vital Signs Temp 35.6 C L 06/20/19 11:00 Pulse 58 L 06/20/19 11:00 Resp 18 06/20/19 11:00 BP 129/57 L 06/20/19 11:00 Pulse Ox 95 06/20/19 11:00 Weight - Most Recent: 97.976 kg I&O - Last 24 Hours: Intake & Output 06/19/19 06/20/19 06/20/19 22:59 06:59 14:59 Intake Total 300 Output Total 300 Balance 300 -300 Lab Results Last 24 Hours: Laboratory Results - last 24 hr 06/19/19 06/19/19 06/20/19 Range/Units 21:47 21:47 01:11 WBC 5.2 (4.5-11.0) K/uL RBC 3.97 L (4.30-5.90) M/uL Hgb 12.0 (12.0-15.0) g/dL Hct 38.1 L (40.0-54.0) % MCV 96 (80-98) fL MCH 30 (27-31) pg MCHC 32 (32-36) % Plt Count 275 (150-400) K/uL Neut % (Auto) 42 (36-66) % Lymph % (Auto) 42 (24-44) % Stearns % (Auto) 12 H (2-6) % Eos % (Auto) 4 (2-4) % Baso % (Auto) 1 (0-1) % Sodium 141 (140-148) mmol/L Potassium 4.3 (3.6-5.2) mmol/L Chloride 103 (100-108) mmol/L Carbon Dioxide 31 (21-32) mmol/L Anion Gap 7.5 (5.0-14.0) mmol/L BUN 20 H D (7-18) mg/dL Creatinine 1.1 (0.8-1.3) mg/dL Est Cr Clr Drug Dosing 45.92 mL/min Estimated GFR (MDRD) > 60 (>60) Glucose 115 H (74-106) mg/dL Calcium 8.9 (8.5-10.1) mg/dL Total Bilirubin 0.4 (0.2-1.0) mg/dL AST 13 L (15-37) U/L ALT 16 (12-78) U/L Alkaline Phosphatase 128 H (46-116) U/L Total Protein 7.2 (6.4-8.2) g/dL Albumin 3.1 L (3.4-5.0) g/dL Globulin 4.1 H (2.3-3.5) g/dL Albumin/Globulin Ratio 0.8 L (1.2-2.2) Urine Color Yellow (YELLOW) Urine Appearance Clear (CLEAR) Urine pH 6.0 (5.0-8.0) Ur Specific Hyrum 1.025 (1.008-1.030) Urine Protein Negative (NEGATIVE) mg/dL Urine Glucose (UA) Negative (NEGATIVE) mg/dL Urine Ketones Negative (NEGATIVE) mg/dL Urine Occult Blood Trace-lysed H (NEGATIVE) Urine Nitrite Negative (NEGATIVE) Urine Bilirubin Negative (NEGATIVE) Urine Urobilinogen 0.2 (0.2-1.0) EU/dL Ur Leukocyte Esterase Trace H (NEGATIVE) Urine RBC 0-5 (0-5) Urine WBC 5-10 H (0-5) Ur Epithelial Cells Few Amorphous Sediment Few Urine Bacteria Few 06/20/19 06/20/19 Range/Units 04:15 04:15 WBC 6.0 (4.5-11.0) K/uL RBC 3.73 L (4.30-5.90) M/uL Hgb 11.0 L (12.0-15.0) g/dL Hct 35.7 L (40.0-54.0) % MCV 96 (80-98) fL MCH 30 (27-31) pg MCHC 31 L (32-36) % Plt Count 245 (150-400) K/uL Neut % (Auto) 44 (36-66) % Lymph % (Auto) 42 (24-44) % Stearns % (Auto) 10 H (2-6) % Eos % (Auto) 4 (2-4) % Baso % (Auto) 1 (0-1) % Sodium 141 (140-148) mmol/L Potassium 4.0 (3.6-5.2) mmol/L Chloride 105 (100-108) mmol/L Carbon Dioxide 31 (21-32) mmol/L Anion Gap 5.3 (5.0-14.0) mmol/L BUN 20 H (7-18) mg/dL Creatinine 1.0 (0.8-1.3) mg/dL Est Cr Clr Drug Dosing 50.51 mL/min Estimated GFR (MDRD) > 60 (>60) Glucose 111 H (74-106) mg/dL Calcium 8.4 L (8.5-10.1) mg/dL Total Bilirubin 0.2 (0.2-1.0) mg/dL AST 13 L (15-37) U/L ALT 16 (12-78) U/L Alkaline Phosphatase 114 (46-116) U/L Total Protein 6.3 L (6.4-8.2) g/dL Albumin 2.6 L (3.4-5.0) g/dL Globulin 3.7 H (2.3-3.5) g/dL Albumin/Globulin Ratio 0.7 L (1.2-2.2) Urine Color (YELLOW) Urine Appearance (CLEAR) Urine pH (5.0-8.0) Ur Specific Hyrum (1.008-1.030) Urine Protein (NEGATIVE) mg/dL Urine Glucose (UA) (NEGATIVE) mg/dL Urine Ketones (NEGATIVE) mg/dL Urine Occult Blood (NEGATIVE) Urine Nitrite (NEGATIVE) Urine Bilirubin (NEGATIVE) Urine Urobilinogen (0.2-1.0) EU/dL Ur Leukocyte Esterase (NEGATIVE) Urine RBC (0-5) Urine WBC (0-5) Ur Epithelial Cells Amorphous Sediment Urine Bacteria Med Orders - Current: Current Medications Acetaminophen (Tylenol) 650 mg PO Q4H PRN PRN Reason: Pain (Mild 1-3)/fever Albuterol/Ipratropium (Duoneb 3.0-0.5 Mg/3 Ml) 3 ml NEB QID PRN PRN Reason: Shortness Of Breath/wheezing Apixaban (Eliquis) 5 mg PO BID [facility] Last Admin: 06/20/19 09:36 Dose: 5 mg Aspirin (Halfprin) 81 mg PO DAILY [facility] Last Admin: 06/20/19 09:36 Dose: 81 mg Atorvastatin Calcium (Lipitor) 40 mg PO BEDTIME [facility] Clonazepam (Klonopin) 0.5 mg PO BEDTIME [facility] Last Admin: 06/20/19 01:58 Dose: 0.5 mg Finasteride (Proscar) 5 mg PO DAILY [facility] Last Admin: 06/20/19 09:37 Dose: 5 mg Promethazine HCl 12.5 mg/ (Sodium Chloride) 50.5 mls @ 200 mls/hr IV Q6H PRN PRN Reason: Nausea/Vomiting Nitroglycerin (Nitrostat) 0.4 mg SL Q5M PRN PRN Reason: Chest Pain Ondansetron HCl (Zofran Odt) 4 mg PO Q6H PRN PRN Reason: Nausea able to take PO Oxycodone/Acetaminophen (Percocet 325-5 Mg) 2 tab PO Q4H PRN PRN Reason: Pain (moderate 4-6) Last Admin: 06/20/19 02:37 Dose: 2 tab Pregabalin (Lyrica) 100 mg PO BID@0900,1200 [facility] Last Admin: 06/20/19 09:43 Dose: 100 mg Pregabalin (Lyrica) 200 mg PO BEDTIME [facility] Ropinirole HCl (Requip) 2 mg PO BEDTIME [facility] Last Admin: 06/20/19 01:58 Dose: 2 mg Sumatriptan Succinate (Sumatriptan) 50 mg PO Q2H PRN PRN Reason: Headache Discontinued Medications Diltiazem HCl (Cardizem Cd) 120 mg PO DAILY [facility] Diltiazem HCl (Cardizem Cd) 120 mg PO BID [facility] Last Admin: 06/20/19 02:27 Dose: 120 mg Furosemide (Lasix) 40 mg PO DAILY [facility] Last Admin: 06/20/19 09:36 Dose: 40 mg Sodium Chloride (Normal Saline) 1,000 mls @ 500 mls/hr IV ASDIRECTED [facility] Last Admin: 06/19/19 23:23 Dose: 500 mls/hr Pregabalin (Lyrica) 100 mg PO QID [facility] Last Admin: 06/20/19 01:59 Dose: 100 mg - Exam Quality Assessment: No: Supplemental Oxygen General: Alert, Oriented, Cooperative, No Acute Distress Lungs: Clear to Auscultation, Normal Respiratory Effort Cardiovascular: Regular Rhythm, No Murmurs, Bradycardia GI/Abdominal Exam: Soft, No Distention Extremities: No Pedal Edema, Other (right foot with halo fixator). No: Increased Warmth Skin: Warm, Dry Psy/Mental Status: Alert, Normal Affect Sepsis Event Note - Evaluation Sepsis Screening Result: No Definite Risk - Focused Exam Vital Signs: Vital Signs Temp Pulse Pulse Resp BP BP Pulse Ox 06/20/19 11:00 35.6 C L 58 L 18 129/57 L 95 06/20/19 07:55 96 06/20/19 07:00 36.0 C L 50 L 18 101/49 L 96 06/20/19 02:27 115 H 110/66 06/20/19 01:05 97 06/20/19 01:02 36.3 C 122 H 18 110/66 97 06/20/19 00:26 63 16 128/49 L 96 Date Exam was Performed: 06/20/19 Time Exam was Performed: 13:54 - Problem List Review Problem List Initiated/Reviewed/Updated: Yes - My Orders Last 24 Hours: My Active Orders 06/20/19 11:59 Convert IV to Saline Lock [OM.PC] Routine 06/20/19 12:07 Communication Order [RC] ROUTINE 06/20/19 16:30 GLUCOSE POC LAB TO COLLECT [POC] QIDACANDBED 06/20/19 21:00 GLUCOSE POC LAB TO COLLECT [POC] QIDACANDBED 06/21/19 05:00 BASIC METABOLIC PANEL,BMP [CHEM] Timed - Plan Plan:: ASSESSMENT AND PLAN - Weakness and lethargy-seems to be doing better today but not back to baseline per his report. No obvious evidence for infection. He has been somewhat bradycardic and this could be contributing. He is on a variety of different sedating medications including benzodiazepines and pregabalin that certainly could be contributing. -Hold diltiazem -Consider pregabalin dose decrease -Review home medications when available -Physical therapy -Encourage oral intake Bradycardia, symptomatic?-Heart rate has been in the 40s and 50s most of the time. He is currently in sinus rhythm. I am wondering if this is contributing to his weakness and lethargy. -Hold calcium channel mirlande -Continue cardiac monitoring Paroxysmal atrial fibrillation-currently in sinus rhythm. He is chronically anticoagulated. Type 2 diabetes mellitus-sugars acceptable so far. -Restart metformin tomorrow Restless leg syndrome-he is on a variety of different medications which could be sedating as discussed above. Status post foot surgery-this was done about 2 weeks ago at [facility]. No evidence for infection. -Wound care twice daily Maintenance issues - - DVT prophylaxis -apixaban - GI prophylaxis -not indicated - Nutrition -regular diet - Blackmon catheter -not indicated Disposition -I would anticipate discharge home with home care versus [facility] Jaun Harper M.D.
[2019-06-20] MEDS: Acetaminophen/oxyCODONE 325-5 MG Tab PO PRN ×2 (16:56→21:55)
[2019-06-20] MEDS ORDERED: atorvaSTATin 20 MG Tab PO SCH (21:00)
[2019-06-21] MEDS: Acetaminophen/oxyCODONE 325-5 MG Tab PO PRN (04:39)
[2019-06-21] MEDS ORDERED: Pantoprazole 40 MG Tab.CR PO SCH (07:30)
[2019-06-21 08:05] VITALS: BP 119/57
[2019-06-21] MEDS: Aspirin 81 MG Tab.EC PO SCH (08:11)
[2019-06-21] MEDS: Apixaban 5 MG Tab PO SCH (08:12)
[2019-06-21] MEDS: Finasteride 5 MG Tab PO SCH (08:12)
[2019-06-21] MEDS: Pregabalin 100 MG Cap PO SCH ×2 (08:17→12:47)
[2019-06-21] MEDS ORDERED: metFORMIN 500 MG Tab PO SCH (09:00)
[2019-06-21] MEDS ORDERED: Finasteride 5 MG Tab PO SCH (09:00)
[2019-06-21] MEDS ORDERED: Cyanocobalamin (Vitamin B12) 1,000 MCG Tab PO SCH (09:00)
--- NOTE | 2019-06-21 11:50 | PCM.DCSUM1 ---
Discharge Summary - Hospital Course Brief History: 84-year-old male with history of controlled type 2 diabetes mellitus, significant painful polyneuropathy as well as recent right foot surgery who presented with weakness, confusion and lethargy. He was admitted for management of the above symptoms with concern that he may be dehydrated. Diagnosis: Stroke: No - Discharge Data Discharge Date: 06/21/19 Discharge Disposition: Home, W Home Health Agency 06 Condition: Good - Referral to Home Health Date of Face to Face Encounter: 06/21/19 Reason for Homebound Status: Acute weakness complicating chronic medical problems Primary Care Physician: PCP None Skilled Need: Nursing for medication management. Physical and occupational therapy for strengthening. Home health aide to help with bathing - Discharge Diagnosis/Problem(s) (1) Generalized weakness SNOMED Code(s): 90644380 ICD Code: R53.1 - WEAKNESS Status: Chronic Onset Date: ~06/16/19 (2) Dehydration SNOMED Code(s): 13666971 ICD Code: E86.0 - DEHYDRATION Status: Acute Onset Date: ~06/16/19 (3) Confusion SNOMED Code(s): 613034161 ICD Code: R41.0 - DISORIENTATION, UNSPECIFIED Status: Acute Priority: High Onset Date: ~06/16/19 (4) Peripheral neuropathy SNOMED Code(s): 869723487 ICD Code: G62.9 - POLYNEUROPATHY, UNSPECIFIED Status: Acute Qualifiers: Peripheral neuropathy type: polyneuropathy, unspecified Qualified Code(s): G62.9 - Polyneuropathy, unspecified (5) Diabetes type 2, controlled SNOMED Code(s): 19280376, 347954697 ICD Code: E11.9 - TYPE 2 DIABETES MELLITUS WITHOUT COMPLICATIONS Status: Acute Onset Date: Unknown Qualifiers: Diabetes mellitus alf insulin use: without alf use Diabetes mellitus complication status: with neurologic complications Diabetes mellitus complication detail: with polyneuropathy Qualified Code(s): E11.42 - Type 2 diabetes mellitus with diabetic polyneuropathy (6) Paroxysmal atrial fibrillation SNOMED Code(s): 448139884 ICD Code: I48.0 - PAROXYSMAL ATRIAL FIBRILLATION Status: Chronic - Patient Summary/Data Consults: Consultations 06/20/19 01:03 Consult to Diabetic Nurse Specialist [CONS] Routine Comment: Physician Instructions: Consult to Concession Stand Attendant [CONS] Routine Comment: Physician Instructions: Quantity: PT Evaluation and Treatment [CONS] Routine Please Evaluate and Treat. PT Reason for Consult: Strengthening This query below is only for informational purposes and is not editable. Hospital Course: Nasir presented to the emergency room with weakness, confusion and lethargy. Work-up in the emergency room was fairly unremarkable with normal laboratory studies and no evidence to support infection. Head CT was unremarkable. There was some concern for dehydration. He was started on IV fluids and admitted to the hospital for further management. Early during the hospital stay he had a couple of episodes where his heart rate madie without provocation and then did improve. He appeared to be having very short runs of atrial fibrillation. He was given his long-acting diltiazem. Shortly thereafter he was noted to be bradycardic and the diltiazem was placed on hold. By the morning after admission he was feeling a little better but still felt foggy and weak. He worked with physical therapy and received some additional IV fluids. Throughout the day and overnight he cleared further and thinks he is back to his baseline other than some mild weakness. He never had any fevers. He has not had any localizing symptoms to suggest infection. Laboratory studies have remained unremarkable. Blood sugars have been well controlled with only mild elevation in the 110 range. His heart rate has been in the 60s pretty consistently. Neuropathic pain is under control with his usual medications. He feels safe going home at this point. I think that all of his troubles were related to probably moderate dehydration and a change in the metabolism and potentially filtration of his usual medications. He is interested in discharge home. He was interested in increasing and maximizing his home care services while he recovers from his ankle surgery. Specifically I think medication management will be helpful for him. He would benefit from early follow-up. - Patient Instructions Diet: Diabetic Diet Activity: As Tolerated Showering/Bathing: May Shower Notify Provider of: Fever, Increased Pain, Nausea and/or Vomiting Other/Special Instructions: 1. You were in the hospital for management of weakness, confusion and dehydration. We did not find any evidence for infection. Your condition has been improving with IV fluid hydration. I suspect that dehydration was the culprit for your weakness, confusion and tremors. To help avoid dehydration in the future I would recommend that you drink plenty of water each day with a goal of 48 to 64 ounces of water per day. I would also recommend that you not take furosemide daily as discussed below as this can lead to dehydration as well. 2. Stop taking furosemide on a daily basis. You may take this medication as needed if you start to develop some lower extremity edema. 3. Continue your other home medications as previously prescribed. 4. Follow up with Dr. Taras Dunham in 1 week. 5. I have placed a referral to home health care. They will provide nursing, physical therapy, occupational therapy as well as home health aide services to ease your transition home from the hospital. - Discharge Plan *PRESCRIPTION DRUG MONITORING PROGRAM REVIEWED*: Not Applicable *COPY OF PRESCRIPTION DRUG MONITORING REPORT IN PATIENT HORACIO: Not Applicable Home Medications: Home Meds Cholecalciferol (Vitamin D3) [D3-2000] 2,000 unit PO DAILY 11/14/13 [History] ClonazePAM [KlonoPIN] 0.5 mg PO BEDTIME 11/14/13 [History] Cyanocobalamin (Vitamin B-12) [Vitamin B-12] 1,000 mcg PO DAILY 11/14/13 [ History] Diphenoxylate HCl/Atropine [Diphenoxylate-Atrop 2.5-0.025] 1 each PO ASDIRECTED PRN 11/14/13 [History] Pantoprazole Sodium 80 mg PO DAILY 11/14/13 [History] SUMAtriptan Succinate [Imitrex] 50 mg PO ASDIRECTED PRN 11/14/13 [History] atorvaSTATin [Lipitor] 40 mg PO BEDTIME 11/14/13 [History] Albuterol Sulfate [Proair Hfa] 2 puff INH Q6H PRN 01/14/16 [History] Finasteride [Proscar] 5 mg PO DAILY 01/14/16 [History] Nitroglycerin 0.4 mg SL ASDIRECTED PRN 01/14/16 [History] metFORMIN [Glucophage] 500 mg PO DAILY 01/14/16 [History] Ferrous Gluconate 324 mg PO BID 08/28/16 [History] Lidocaine 2% [Xylocaine 2% Jelly] 1 applic TOP ASDIRECTED 08/28/16 [History] Apixaban [Eliquis] 5 mg PO BID 06/19/17 [History] Diltiazem [Dilacor XR] 1 tab PO BID 06/19/17 [History] Potassium Chloride 10 meq PO DAILY 10/10/18 [History] Pregabalin [Lyrica] 100 mg PO BID 10/10/18 [History] rOPINIRole [Requip] 2 mg PO BEDTIME 10/10/18 [History] traMADol HCl [Tramadol HCl] 50 mg PO Q8HR 10/10/18 [History] Albuterol [Ventolin HFA] 2 puff IN ASDIRECTED 06/19/19 [History] Fluticasone Propionate [Flovent] 2 puff IN ASDIRECTED 06/19/19 [History] Baclofen 5 mg PO TID 06/20/19 [History] Pregabalin [Lyrica] 100 mg PO BEDTIME 06/20/19 [History] Oxygen Therapy Mode: Room Air Patient Handouts: Dehydration, Elderly Referrals: Aaron Dunham MD [Physician] - 06/26/19 2:20 pm (1 week -follow-up hospital stay for weakness, confusion and dehydration Follow up appointment will be by telephone with Dr. Dunham. You will receive a phone call from Dr. Dunham between 2:00-2:20. The number on your phone may have a [employer] area code or may read [facility]. ) - Discharge Summary/Plan Comment DC Time >30 min.: No ([facility]) - Patient Data Vitals - Most Recent: Last Vital Signs Temp 35.9 C L 06/21/19 08:04 Pulse 59 L 06/21/19 08:04 Resp 16 06/21/19 08:04 BP 119/57 L 06/21/19 08:04 Pulse Ox 95 06/21/19 08:04 Weight - Most Recent: 97.976 kg I&O - Last 24 hours: Intake & Output 06/20/19 06/21/19 06/21/19 22:59 06:59 14:59 Intake Total 850 500 Output Total 1600 550 Balance -750 -50 Lab Results - Last 24 hrs: Laboratory Results - last 24 hr 06/21/19 Range/Units 04:10 Sodium 140 (140-148) mmol/L Potassium 3.9 (3.6-5.2) mmol/L Chloride 102 (100-108) mmol/L Carbon Dioxide 29 (21-32) mmol/L Anion Gap 8.6 (5.0-14.0) mmol/L BUN 23 H (7-18) mg/dL Creatinine 1.1 (0.8-1.3) mg/dL Est Cr Clr Drug Dosing 46.15 mL/min Estimated GFR (MDRD) > 60 (>60) Glucose 100 (74-106) mg/dL Calcium 8.4 L (8.5-10.1) mg/dL SRI Results - Last 24 hrs: Microbiology 06/20/19 01:45 Aerobic Blood Culture - Preliminary Blood - Arm, Left NO GROWTH AFTER 1 DAY Anaerobic Blood Culture - Preliminary NO GROWTH AFTER 1 DAY 06/20/19 01:50 Aerobic Blood Culture - Preliminary Blood - Arm, Right NO GROWTH AFTER 1 DAY Anaerobic Blood Culture - Preliminary NO GROWTH AFTER 1 DAY Med Orders - Current: Current Medications Acetaminophen (Tylenol) 650 mg PO Q4H PRN PRN Reason: Pain (Mild 1-3)/fever Last Admin: 06/21/19 10:11 Dose: 650 mg Albuterol/Ipratropium (Duoneb 3.0-0.5 Mg/3 Ml) 3 ml NEB QID PRN PRN Reason: Shortness Of Breath/wheezing Apixaban (Eliquis) 5 mg PO BID [facility] Last Admin: 06/21/19 08:12 Dose: 5 mg Aspirin (Halfprin) 81 mg PO DAILY [facility] Last Admin: 06/21/19 08:11 Dose: 81 mg Atorvastatin Calcium (Lipitor) 40 mg PO BEDTIME [facility] Last Admin: 06/20/19 21:58 Dose: 40 mg Clonazepam (Klonopin) 0.5 mg PO BEDTIME [facility] Last Admin: 06/20/19 22:03 Dose: 0.5 mg Cyanocobalamin (Vitamin B12) 1,000 mcg PO DAILY [facility] Last Admin: 06/21/19 08:11 Dose: 1,000 mcg Finasteride (Proscar) 5 mg PO DAILY [facility] Last Admin: 06/21/19 08:12 Dose: 5 mg Promethazine HCl 12.5 mg/ (Sodium Chloride) 50.5 mls @ 200 mls/hr IV Q6H PRN PRN Reason: Nausea/Vomiting Metformin HCl (Glucophage) 500 mg PO DAILY [facility] Last Admin: 06/21/19 08:10 Dose: 500 mg Nitroglycerin (Nitrostat) 0.4 mg SL Q5M PRN PRN Reason: Chest Pain Ondansetron HCl (Zofran Odt) 4 mg PO Q6H PRN PRN Reason: Nausea able to take PO Oxycodone/Acetaminophen (Percocet 325-5 Mg) 1 tab PO Q4H PRN PRN Reason: Pain (moderate 4-6) Last Admin: 06/21/19 04:39 Dose: 1 tab Pantoprazole Sodium (Protonix) 40 mg PO ACBREAKFAST [facility] Last Admin: 06/21/19 08:10 Dose: 40 mg Pregabalin (Lyrica) 100 mg PO BID@0900,1200 [facility] Last Admin: 06/21/19 08:17 Dose: 100 mg Pregabalin (Lyrica) 200 mg PO BEDTIME [facility] Last Admin: 06/20/19 22:02 Dose: 200 mg Ropinirole HCl (Requip) 2 mg PO BEDTIME [facility] Last Admin: 06/20/19 21:58 Dose: 2 mg Sumatriptan Succinate (Sumatriptan) 50 mg PO Q2H PRN PRN Reason: Headache Discontinued Medications Diltiazem HCl (Cardizem Cd) 120 mg PO DAILY [facility] Diltiazem HCl (Cardizem Cd) 120 mg PO BID [facility] Last Admin: 06/20/19 02:27 Dose: 120 mg Furosemide (Lasix) 40 mg PO DAILY [facility] Last Admin: 06/20/19 09:36 Dose: 40 mg Sodium Chloride (Normal Saline) 1,000 mls @ 500 mls/hr IV ASDIRECTED [facility] Last Admin: 06/19/19 23:23 Dose: 500 mls/hr Oxycodone/Acetaminophen (Percocet 325-5 Mg) 2 tab PO Q4H PRN PRN Reason: Pain (moderate 4-6) Last Admin: 06/20/19 02:37 Dose: 2 tab Pregabalin (Lyrica) 100 mg PO QID [facility] Last Admin: 06/20/19 01:59 Dose: 100 mg - Exam Quality Assessment: Denies: Supplemental Oxygen General: Reports: Alert, Oriented, Cooperative, No Acute Distress Lungs: Reports: Normal Respiratory Effort Cardiovascular: Reports: Regular Rate, Regular Rhythm GI/Abdominal Exam: Soft, No Distention Extremities: Other (right foot in halo fixator ) Psy/Mental Status: Reports: Alert, Normal Affect
[2019-06-21 12:29] VITALS: PULSE 67
== END 2019-06-21 13:11 | disposition home health service (06) | DRG 641 ==
LOC: JP.ED 21:37 → JP.MS 06-20 01:01
PROVIDERS: ADMIT Family Medicine; ATTEND Internal Medicine
DX: R41.0 Disorientation, unspecified (principal); E86.0 Dehydration; E11.42 Type 2 diabetes mellitus with diabetic polyneuropathy; H54.7 Unspecified visual loss; I48.0 Paroxysmal atrial fibrillation; J44.9 Chronic obstructive pulmonary disease, unspecified; I95.9 Hypotension, unspecified; J43.9 Emphysema, unspecified; Z66 Do not resuscitate; M54.9 Dorsalgia, unspecified; E11.40 Type 2 diabetes mellitus with diabetic neuropathy, unspecified; E55.9 Vitamin D deficiency, unspecified; E61.1 Iron deficiency; M54.2 Cervicalgia; Z90.79 Acquired absence of other genital organ(s); G89.29 Other chronic pain; M19.90 Unspecified osteoarthritis, unspecified site; Z91.048 Other nonmedicinal substance allergy status; E78.5 Hyperlipidemia, unspecified; E78.00 Pure hypercholesterolemia, unspecified; K21.9 Gastro-esophageal reflux disease without esophagitis; Z79.84 Long term (current) use of oral hypoglycemic drugs; Z79.899 Other long term (current) drug therapy; Z88.5 Allergy status to narcotic agent; Z87.891 Personal history of nicotine dependence; Z90.49 Acquired absence of other specified parts of digestive tract; Z79.01 Long term (current) use of anticoagulants
CPT/HCPCS: 36415; 70450; 80053; 85025; 93005; 96360; 96361; 99285; J7030; 71045; 71045-26; 80048; 81001; 82962; 87040; 93010; 97110-GP; 97162-GP; 97530-GP; 99284; A9270-GY

== ENCOUNTER 2019-07-02 09:32 | Emergency (ER) | payer MEDICARE, BC ==
--- NOTE | 2019-07-02 10:11 | EDM.PDOC ---
ED HPI GENERAL MEDICAL PROBLEM - General Chief Complaint: General Stated Complaint: SHAKING MAYBE HEART Time Seen by Provider: 07/02/19 09:50 Source of Information: Reports: Patient, EMS History Limitations: Reports: No Limitations - History of Present Illness INITIAL COMMENTS - FREE TEXT/NARRATIVE: 84-year-old male with several chronic medical issues including a complicated external fixation device on his right lower extremity was recently hospitalized for mild dehydration and weakness. He has been home for just over a week, this morning he woke up at 5:00 and just "did not feel right" and felt shaky. Was concerned that he may have low blood glucose, so took 2 tablespoons of sugar. Went back to bed, feeling better but after he woke up he was still lightheaded and woozy and accidentally took 2 steps on his right leg which is supposed to be strict nonweightbearing. He then fell to 1 knee and was too weak to get up. He laid on the floor and the ambulance was called, his glucose was not low. He feels intermittently shaky but this has happened before but usually resolves. Denies any shortness of breath or chest pain, he had some nausea but no vomiting. There is a small amount of bleeding at the insertions of his external fixation device however there is no deformity or damage to the device. Onset: Sudden Associated Symptoms: Reports: Confusion (Intermittent confusion for the past several months), Other (Tremor which seems to have resolved) Right Foot Pain Score (Numeric/FACES): 3 - Related Data Allergies Allergy/AdvReac Type Severity Reaction Status Date / Time codeine AdvReac Nausea and Verified 07/02/19 09:35 Vomiting morphine AdvReac Headache Verified 07/02/19 09:35 foam tape AdvReac Blisters Uncoded 07/02/19 09:35 Home Meds: Home Meds Cholecalciferol (Vitamin D3) [D3-2000] 2,000 unit PO DAILY 11/14/13 [History] ClonazePAM [KlonoPIN] 0.5 mg PO BEDTIME 11/14/13 [History] Cyanocobalamin (Vitamin B-12) [Vitamin B-12] 1,000 mcg PO DAILY 11/14/13 [ History] Diphenoxylate HCl/Atropine [Diphenoxylate-Atrop 2.5-0.025] 1 each PO ASDIRECTED PRN 11/14/13 [History] Pantoprazole Sodium 80 mg PO DAILY 11/14/13 [History] SUMAtriptan Succinate [Imitrex] 50 mg PO ASDIRECTED PRN 11/14/13 [History] atorvaSTATin [Lipitor] 40 mg PO BEDTIME 11/14/13 [History] Finasteride [Proscar] 5 mg PO DAILY 01/14/16 [History] Nitroglycerin 0.4 mg SL ASDIRECTED PRN 01/14/16 [History] metFORMIN [Glucophage] 500 mg PO DAILY 01/14/16 [History] Ferrous Gluconate 324 mg PO BID 08/28/16 [History] Lidocaine 2% [Xylocaine 2% Jelly] 1 applic TOP ASDIRECTED 08/28/16 [History] Apixaban [Eliquis] 5 mg PO BID 06/19/17 [History] Diltiazem [Dilacor XR] 1 tab PO BID 06/19/17 [History] Potassium Chloride 10 meq PO DAILY 10/10/18 [History] Pregabalin [Lyrica] 100 mg PO BID 10/10/18 [History] rOPINIRole [Requip] 2 mg PO BEDTIME 10/10/18 [History] traMADol HCl [Tramadol HCl] 50 mg PO Q8HR 10/10/18 [History] Albuterol [Ventolin HFA] 2 puff IN ASDIRECTED PRN 06/19/19 [History] Fluticasone Propionate [Flovent] 2 puff IN ASDIRECTED 06/19/19 [History] Baclofen 5 mg PO TID 06/20/19 [History] Past Medical History HEENT History: Reports: Impaired Vision Cardiovascular History: Reports: Afib, High Cholesterol, SOB on Exertion, Other (See Below) Other Cardiovascular History: recent episode of a fib Apr 2017. Respiratory History: Reports: Asthma, COPD Gastrointestinal History: Reports: GERD, Hemorrhoids Genitourinary History: Reports: Prostate Disorder, Other (See Below) Other Genitourinary History: self cath Musculoskeletal History: Reports: Arthritis, Back Pain, Chronic, Fracture, Neck Pain, Chronic, Osteoarthritis, Other (See Below) Other Musculoskeletal History: L hip pain Neurological History: Reports: Migraines, Neuropathy, Diabetic Psychiatric History: Reports: None Endocrine/Metabolic History: Reports: Diabetes, Type II, Obesity/BMI 30+, Vitamin D Deficiency Hematologic History: Reports: Blood Transfusion(s), Iron Deficiency Immunologic History: Reports: None Oncologic (Cancer) History: Reports: None Dermatologic History: Reports: None - Infectious Disease History Infectious Disease History: Reports: Chicken Pox, Measles, Mumps, Shingles - Past Surgical History GI Surgical History: Reports: Appendectomy, Cholecystectomy, Colonoscopy, EGD, Hernia, Abdominal, Hernia, Inguinal, Hernia Repair/Other Male Surgical History: Reports: Prostate Biopsy, Prostatectomy, Vasectomy Other Neurological Surgeries/Procedures: T11 to S1C5-6 Musculoskeletal Surgical History: Reports: Arthroscopic Procedure, Carpal Tunnel , Knee Replacement, Shoulder Surgery, Other (See Below) Other Musculoskeletal Surgeries/Procedures:: right heel fusion. cervical fusion. lunbar and thoracic fusion. ankle / foot fusion Dermatological Surgical History: Reports: Skin Biopsy Social & Family History - Family History Family Medical History: Noncontributory Cardiac: Reports: Heart Failure - Tobacco Use Smoking Status *Q: Former Smoker Used Tobacco, but Quit: Yes Month/Year Tobacco Last Used: 1998 - Caffeine Use Caffeine Use: Reports: None Other Caffeine Use: 1x/wk - Recreational Drug Use Recreational Drug Use: No ED ROS GENERAL - Review of Systems Review Of Systems: See Below Constitutional: Reports: Malaise HEENT: Denies: Vision Change Respiratory: Denies: Shortness of Breath Cardiovascular: Denies: Chest Pain, Palpitations GI/Abdominal: Reports: Nausea. Denies: Abdominal Pain, Vomiting : Reports: No Symptoms Musculoskeletal: Reports: Leg Pain Skin: Denies: Bruising Neurological: Reports: Confusion, Weakness Psychiatric: Reports: Anxiety ED EXAM, GENERAL - Physical Exam Exam: See Below Exam Limited By: No Limitations General Appearance: Alert, No Apparent Distress Eye Exam: Bilateral Eye: EOMI Respiratory/Chest: No Respiratory Distress, Lungs Clear Cardiovascular: Regular Rate, Rhythm, Extra Beats (Occasional extra beats) GI/Abdominal: Soft, Non-Tender Extremities: Other (External fixation device on the right lower extremity looks excellent and undamaged. A tiny amount of bleeding is occurring at the lateral insertions of the wires) Neurological: Alert, Oriented, No Motor/Sensory Deficits, Confused (Slightly confused and repetitive) Psychiatric: Anxious Skin Exam: Warm, Dry Course - Vital Signs Last Recorded V/S: Last Vital Signs Temp 97.0 F 07/02/19 10:55 Pulse 60 07/02/19 10:55 Resp 16 07/02/19 10:55 BP 131/55 L 07/02/19 10:55 Pulse Ox 97 07/02/19 10:55 - Orders/Labs/Meds Labs: Laboratory Tests 07/02/19 07/02/19 07/02/19 Range/Units 10:10 10:10 10:10 WBC 7.1 (4.5-11.0) K/uL RBC 4.12 L (4.30-5.90) M/uL Hgb 12.3 (12.0-15.0) g/dL Hct 38.9 L (40.0-54.0) % MCV 94 (80-98) fL MCH 30 (27-31) pg MCHC 32 (32-36) % Plt Count 268 (150-400) K/uL Neut % (Auto) 59 (36-66) % Lymph % (Auto) 30 (24-44) % Calvert % (Auto) 9 H (2-6) % Eos % (Auto) 1 L (2-4) % Baso % (Auto) 1 (0-1) % Sodium 138 L (140-148) mmol/L Potassium 4.1 (3.6-5.2) mmol/L Chloride 101 (100-108) mmol/L Carbon Dioxide 29 (21-32) mmol/L Anion Gap 12.1 (5.0-14.0) mmol/L BUN 19 H (7-18) mg/dL Creatinine 1.1 (0.8-1.3) mg/dL Est Cr Clr Drug Dosing 52.54 mL/min Estimated GFR (MDRD) > 60 (>60) Glucose 140 H (74-106) mg/dL Calcium 9.0 (8.5-10.1) mg/dL Total Bilirubin 0.4 D (0.2-1.0) mg/dL AST 14 L (15-37) U/L ALT 20 (12-78) U/L Alkaline Phosphatase 140 H (46-116) U/L Troponin I < 0.017 (0.000-0.056) ng/mL Total Protein 7.8 (6.4-8.2) g/dL Albumin 3.4 (3.4-5.0) g/dL Globulin 4.4 H (2.3-3.5) g/dL Albumin/Globulin Ratio 0.8 L (1.2-2.2) - Re-Assessments/Exams Free Text/Narrative Re-Assessment/Exam: 07/02/19 11:02 Patient was kept on cardiac monitoring and a CBC and CMP was obtained. He slept soundly for an hour while awaiting labs, no tremor or shaking while he was sleeping. White count and hemoglobin are normal, electrolytes are normal. After the patient woke up his temperature was rechecked and he was still afebrile. Unfortunately the patient is still very anxious about being discharged despite reassurance. 07/02/19 11:46 After discussing the situation with his , she agreed to he agreed to try 1 more time to go home. If he has another episode and needs hospitalization, social worker aide will probably have to be consulted to discuss a more high-level care situation with her at home health or assisted living, or possibly even half-way rehabilitation. Departure - Departure Time of Disposition: 13:14 Disposition: Home, Self-Care 01 Clinical Impression: Vasovagal near syncope, Confusion, Anxiety about health - Discharge Information Instructions: Near-Syncope, [id number] Referrals: PCP,None [Primary Care Provider] - Forms: ED Department Discharge Care Plan Goals: Continue current medications, maintain hydration and activity as tolerated. If not feeling well try sitting or laying until it passes without attempting to move around. Extra glucose will not hurt you. If needed return to the emergency room or hospital for further evaluation, otherwise keep your follow- up appointments as scheduled. Sepsis Event Note - Evaluation Sepsis Screening Result: No Definite Risk - Focused Exam Vital Signs: Vital Signs Temp Pulse Resp BP Pulse Ox 07/02/19 10:55 97.0 F 60 16 131/55 L 97 07/02/19 10:00 52 L 16 125/52 L 96 07/02/19 09:38 96.3 F L 65 15 116/58 L 99 07/02/19 09:34 96.3 F L 65 15 116/58 L 99 Date Exam was Performed: 07/02/19 Time Exam was Performed: 13:54
[2019-07-02 10:59] VITALS: BP 131/55; PULSE 60
== END 2019-07-02 13:14 | disposition home or self-care (01) ==
LOC: JP.ED 09:32
DX: R41.0 Disorientation, unspecified (principal); R55 Syncope and collapse; F41.9 Anxiety disorder, unspecified; I48.91 Unspecified atrial fibrillation; E78.00 Pure hypercholesterolemia, unspecified; J44.9 Chronic obstructive pulmonary disease, unspecified; K21.9 Gastro-esophageal reflux disease without esophagitis; M19.90 Unspecified osteoarthritis, unspecified site; E11.40 Type 2 diabetes mellitus with diabetic neuropathy, unspecified; E66.9 Obesity, unspecified; Z68.30 Body mass index [BMI] 30.0-30.9, adult; Z87.891 Personal history of nicotine dependence; Z88.5 Allergy status to narcotic agent; Z91.048 Other nonmedicinal substance allergy status; Z79.899 Other long term (current) drug therapy; Z79.01 Long term (current) use of anticoagulants; Z79.84 Long term (current) use of oral hypoglycemic drugs
CPT/HCPCS: 36415; 80053; 84484; 85025; 99283; 99285

== ENCOUNTER 2021-11-13 15:29 | Inpatient (IN) | payer MEDICARE, BC ==
[2021-11-13] MEDS ORDERED: Albuterol 0.083% 2.5 MG/3 ML Neb Soln NEB PRN (16:34)
[2021-11-13] MEDS ORDERED: Acetaminophen 325 MG Tab PO PRN (16:34)
[2021-11-13] MEDS ORDERED: Ondansetron 4 MG/2 ML SDV IV PRN (16:34)
[2021-11-13] MEDS ORDERED: Sodium Chloride 0.9% 10 ML Syringe FLUSH PRN (16:34)
[2021-11-13] MEDS ORDERED: Enoxaparin 40 MG/0.4 ML Syringe SUBCUT SCH (16:45)
[2021-11-13] MEDS ORDERED: traMADol 50 MG Tab PO PRN (17:21)
[2021-11-13] MEDS ORDERED: Albuterol 8 GM Inhaler INH PRN (17:21)
[2021-11-13] MEDS ORDERED: Glucose Gel 15 GM in 37.5 GM Tube PO PRN (17:24)
[2021-11-13] MEDS ORDERED: 50% Dextrose in Water 50 ML Syringe IV PRN (17:24)
[2021-11-13] MEDS ORDERED: Mometasone Furoate HFA 100mcg/Puff 13 GM Inhaler INH PRN (17:35)
[2021-11-13] MEDS ORDERED: Vancomycin 1 GM SDV IV SCH (18:00)
[2021-11-13 18:35] LABS: ESTIMATED GFR 49 mL/min (>60)
[2021-11-13] MEDS ORDERED: Pregabalin 100 MG Cap PO SCH (21:00)
[2021-11-13] MEDS: Apixaban 5 MG Tab PO SCH (21:36)
[2021-11-13] MEDS: atorvaSTATin 20 MG Tab PO SCH (21:36)
[2021-11-13] MEDS: rOPINIRole 1 MG Tab PO SCH (21:37)
[2021-11-13] MEDS: Insulin Lispro 100 Unit/ML 3 ML KwikPen SUBCUT SCH (21:41)
[2021-11-13] MEDS: Atropine/Diphenoxylate 0.025-2.5 MG Tab PO SCH (21:42)
[2021-11-13] MEDS ORDERED: Pregabalin 100 MG Cap PO ONE (21:55)
[2021-11-13] MEDS ORDERED: Water For Injection, Sterile 40 ML ONE (22:38)
[2021-11-13] MEDS: Piperacillin/Tazobactam 3.375 GM in Sodium Chloride 0.9% 50 ML IV SCH (23:05)
[2021-11-14] MEDS: Piperacillin/Tazobactam 3.375 GM in Sodium Chloride 0.9% 50 ML IV SCH (06:15)
[2021-11-14] MEDS: Atropine/Diphenoxylate 0.025-2.5 MG Tab PO SCH ×4 (06:16→21:35)
[2021-11-14] MEDS ORDERED: Mometasone Furoate HFA 100mcg/Puff 13 GM Inhaler INH PRN (07:46)
[2021-11-14] MEDS ORDERED: Potassium Chloride 20 MEQ Tab.ER PO ONE ×3 (08:00→17:00)
[2021-11-14] MEDS: Insulin Lispro 100 Unit/ML 3 ML KwikPen SUBCUT SCH ×4 (08:01→21:35)
[2021-11-14] MEDS: Potassium Chloride 10 MEQ Cap.ER PO SCH (08:36)
[2021-11-14] MEDS: Finasteride 5 MG Tab PO SCH (08:36)
[2021-11-14] MEDS: Pregabalin 100 MG Cap PO SCH ×3 (08:36→20:31)
[2021-11-14] MEDS: Diltiazem 180 MG Cap.CD PO SCH (08:36)
[2021-11-14] MEDS: Apixaban 5 MG Tab PO SCH ×2 (08:37→20:31)
[2021-11-14] MEDS: metFORMIN 500 MG Tab PO SCH (08:37)
[2021-11-14] MEDS: Furosemide 40 MG Tab PO SCH (08:37)
[2021-11-14] MEDS: Citalopram 20 MG Tab PO SCH (08:37)
[2021-11-14] MEDS ORDERED: Vancomycin 0.5 GM in Sodium Chloride 0.9% 250 ML IV SCH (11:00)
[2021-11-14] MEDS: Piperacillin/Tazobactam/Dext 3.375 GM in Premix Bag 1 BAG IV SCH ×2 (12:25→17:35)
[2021-11-14] MEDS: rOPINIRole 1 MG Tab PO SCH (20:31)
[2021-11-14] MEDS: atorvaSTATin 20 MG Tab PO SCH (20:31)
[2021-11-15] MEDS: Piperacillin/Tazobactam/Dext 3.375 GM in Premix Bag 1 BAG IV SCH ×2 (00:34→05:48)
[2021-11-15 07:36] VITALS: PULSE 67
[2021-11-15] MEDS: Insulin Lispro 100 Unit/ML 3 ML KwikPen SUBCUT SCH ×2 (07:49→11:31)
[2021-11-15] MEDS: Atropine/Diphenoxylate 0.025-2.5 MG Tab PO SCH ×2 (07:49→10:30)
[2021-11-15] MEDS: Apixaban 5 MG Tab PO SCH (08:01)
[2021-11-15] MEDS: Furosemide 40 MG Tab PO SCH (08:01)
[2021-11-15] MEDS: metFORMIN 500 MG Tab PO SCH (08:02)
[2021-11-15] MEDS: Potassium Chloride 10 MEQ Cap.ER PO SCH (08:02)
[2021-11-15] MEDS: Diltiazem 180 MG Cap.CD PO SCH (08:03)
[2021-11-15] MEDS: Citalopram 20 MG Tab PO SCH (08:03)
[2021-11-15] MEDS: Finasteride 5 MG Tab PO SCH (08:04)
[2021-11-15] MEDS: Pregabalin 100 MG Cap PO SCH (08:06)
[2021-11-15 10:57] VITALS: BP 122/63
== END 2021-11-15 13:00 | disposition home or self-care (01) | DRG 638 ==
LOC: JP.MS 15:29
PROVIDERS: ADMIT Hospitalist; ATTEND Hospitalist
PROC: 2W1RX6Z Compression of Left Lower Leg using Pressure Dressing (ICD-10-PCS; principal; 2021-11-15)
DX: E11.628 Type 2 diabetes mellitus with other skin complications (principal); L03.116 Cellulitis of left lower limb; I48.0 Paroxysmal atrial fibrillation; E11.42 Type 2 diabetes mellitus with diabetic polyneuropathy; E78.00 Pure hypercholesterolemia, unspecified; H54.7 Unspecified visual loss; K21.9 Gastro-esophageal reflux disease without esophagitis; J44.9 Chronic obstructive pulmonary disease, unspecified; I83.022 Varicose veins of left lower extremity with ulcer of calf; M19.90 Unspecified osteoarthritis, unspecified site; M54.9 Dorsalgia, unspecified; M54.2 Cervicalgia; G89.29 Other chronic pain; E55.9 Vitamin D deficiency, unspecified; E66.01 Morbid (severe) obesity due to excess calories; Z68.35 Body mass index [BMI] 35.0-35.9, adult; Z88.5 Allergy status to narcotic agent; Z79.84 Long term (current) use of oral hypoglycemic drugs; Z79.899 Other long term (current) drug therapy; Z87.891 Personal history of nicotine dependence; Z90.49 Acquired absence of other specified parts of digestive tract
CPT/HCPCS: 36415; 80048; 80053; 80202; 82947; 83735; 84132; 85025; 86140; 87040; 97110-GP; 97162-GP; 97530-GP; 97535-GP; A9270-GY; J2543; J3370; J3490; J7050; U0002